=== PATIENT | male | born 1975 | race Two or more races ===

== ENCOUNTER 2019-11-26 09:59 | Inpatient (IN) | payer MEDICARE, MEDICAID ==
[~2019-11-26] VITALS: Ht 180.3 cm; Wt 74.3 kg
[2019-11-26 10:45] LABS: Basophils # (auto) 0.1 10 ^3/uL (0-0.2); Basophils % (auto) 0.9 % (0.0-2.0); Eosinophils # (auto) 0.2 10 ^3/uL (0-0.8); Eosinophils % (auto) 1.5 % (0.0-7.0); Hematocrit 33.2 % (41.0-53.0); Lymphocytes # (auto) 1.2 10 ^3/uL (0.4-5.4); Lymphocytes % (auto) 10.2 % (10.0-50.0); Mean Corpuscular Hemoglobin 29.1 pg (28.0-32.0); Mean Corpuscular Hgb Conc. 33.1 g/dL (32.0-36.0); Mean Corpuscular Volume 87.9 fL (80.0-100.0); Monocytes # (auto) 0.9 10 ^3/uL (0-1.3); Monocytes % (auto) 7.4 % (0.0-12.0); Neutrophils # (auto) 9.4 10 ^3/uL (1.6-8.6); Nucleated Red Blood Cells % 0.1 %; Platelet Count (auto) 380 10^3/uL (140-450); Red Blood Cells 3.78 10^6/uL (4.5-5.90); Red Cell Distribution Width 14.7 % (11.8-14.3); White Blood Cell 11.7 10^3/uL (4.4-10.8)
[2019-11-26] MEDS ORDERED: PIPERACILLIN-TAZOB 3.375GM 100 ML IV ONE (10:45)
[2019-11-26 11:04] LABS: Albumin 3.4 g/dL (3.4-5.0); Calcium 8.2 mg/dL (8.5-10.1); Magnesium 2.6 mg/dL (1.6-2.6); Potassium 3.2 mmol/L (3.5-5.1)
[2019-11-26 11:16] LABS: INR 1.07 (0.9-1.15); Partial Thromboplastin Time 30.4 sec (23.0-31.2)
[2019-11-26 11:27] LABS: BUN/Creatinine Ratio 4.9; Bilirubin, Total 0.5 mg/dL (0.2-1.0); Total Protein 8.9 g/dL (6.4-8.2)
[2019-11-26] MEDS ORDERED: MORPHINE SULF INJ 2 MG/ML SYRINGE 1ML IV PRN ×2 (12:15→13:15)
[2019-11-26] MEDS ORDERED: NITROGLYCERIN 0.4 MG SL TAB SL PRN ×2 (12:15→13:15)
[2019-11-26] MEDS ORDERED: ACETAMINOPHEN 325 MG TAB PO PRN (13:15)
[2019-11-26] MEDS ORDERED: ONDANSETRON HCL 4 MG/2 ML VIAL IV PRN (13:15)
[2019-11-26] MEDS ORDERED: ALUM & MAG HYDROX-SIMETH LIQ(MAALOX) 30 ML PO PRN (13:15)
[2019-11-26] MEDS ORDERED: VANCOMYCIN PER PHARMACY 0 MG IV SCH (13:15)
[2019-11-26] MEDS ORDERED: DOCUSATE SOD 100 MG CAP PO PRN (13:15)
[2019-11-26] MEDS ORDERED: SULF-92 PO (13:31)
[2019-11-26] MEDS ORDERED: CEPH500C PO (13:31)
[2019-11-26] MEDS ORDERED: FERR1TAB17 PO (13:31)
[2019-11-26] MEDS ORDERED: CALC-509 PO (13:31)
[2019-11-26] MEDS ORDERED: CARV25TA55 PO (13:31)
[2019-11-26] MEDS ORDERED: ROSU10TA16 PO (13:31)
[2019-11-26] MEDS ORDERED: CLON0.2T PO (13:31)
[2019-11-26] MEDS ORDERED: MIN25T PO (13:31)
[2019-11-26] MEDS ORDERED: POTASSIUM CHL 20 Meq TABLET PO ONE (14:00)
[2019-11-26] MEDS ORDERED: POTASSIUM CHL 20MEQ/100ML 100 ML IV ONE (14:00)
[2019-11-26] MEDS ORDERED: VANCOMYCIN 1GM/250ML 250 ML IV ONE (14:30)
[2019-11-26] MEDS: FERROUS SULFATE 325 MG TAB PO SCH (14:50)
[2019-11-26] MEDS: CALCIUM CARB 500 MG CHEW TAB PO SCH (14:50)
[2019-11-26 17:48] VITALS: BP 142/78
--- NOTE | 2019-11-26 19:20 | NUR ---
Opening Shift Note Assumed care of patient, awake and alert. No S/S of distress/SOB or pain. Instructed on POC and to call for assistance PRN, will continue to monitor for changes Q1hr and PRN.
[2019-11-26 22:00] VITALS: BP 133/79
[2019-11-26] MEDS: PIPERACILLIN-TAZOB 2.25GM 50 ML IV SCH (22:56)
[2019-11-26] MEDS: ATORVASTATIN 20 MG TAB PO SCH (22:58)
[2019-11-26] MEDS: CARVEDILOL 12.5 MG TAB PO SCH (22:58)
[2019-11-27] MEDS: MORPHINE SULF INJ 2 MG/ML SYRINGE 1ML IV PRN ×2 (00:25→04:47)
[2019-11-27 05:00] VITALS: BP 139/86
--- NOTE | 2019-11-27 07:12 | NUR ---
End of Shift Note Endorsed care to dayshift RN. At this time patient has no s/s of distress or SOB.
[2019-11-27] MEDS: CALCIUM CARB 500 MG CHEW TAB PO SCH ×3 (07:42→17:56)
[2019-11-27] MEDS: FERROUS SULFATE 325 MG TAB PO SCH ×3 (07:42→17:55)
[2019-11-27 09:19] VITALS: BP 154/79
[2019-11-27] MEDS: CHOLECALCIFEROL (VITD3) 2,000 UNIT CAP PO SCH (10:00)
[2019-11-27] MEDS: PIPERACILLIN-TAZOB 2.25GM 50 ML IV SCH ×2 (10:14→21:38)
[2019-11-27] MEDS: CARVEDILOL 12.5 MG TAB PO SCH ×2 (10:20→21:23)
[2019-11-27] MEDS ORDERED: FAMOTIDINE 20 MG TAB PO ONE (11:15)
[2019-11-27] MEDS ORDERED: ASPirin 81 mg TAB PO ONE (11:15)
[2019-11-27 13:00] VITALS: BP 152/86
[2019-11-27] MEDS ORDERED: ENOXAPARIN SOD 80 MG/0.8ML SYRINGE SC ONE (13:00)
[2019-11-27 17:00] VITALS: BP 140/86
[2019-11-27] MEDS: HYDROcodone-ACET 5/325MG TAB PO PRN (17:59)
--- NOTE | 2019-11-27 19:30 | NUR ---
Opening Shift Note Assumed care of patient, awake and alert. No S/S of distress/SOB or pain. Instructed on POC and to call for assist PRN; call light within pt's reach. Bed low and HOB in semi-Bailey's position. RN will continue to monitor for changes Q1hr and PRN. Dorsal R foot has assymetrical 2+ eythematous area noted previously during this admit; marked with marker. Pt's foot "spasms" made marking difficult.
[2019-11-27] MEDS: MINOXIDIL 2.5 MG TAB PO PRN (21:20)
[2019-11-27] MEDS: ATORVASTATIN 20 MG TAB PO SCH (21:23)
[2019-11-27 21:32] VITALS: BP 185/98
[2019-11-27] MEDS: LORazepam 0.5 MG TAB PO PRN (21:39)
--- NOTE | 2019-11-27 23:05 | NUR ---
Keith Damico RN, CMA OR LPN, hospitalist, called 2/2 pt's BP of 179/111 after routine Coreg 12.5mg po, Ativan 0.5mg po and Loniten 2.5mg po given.
--- NOTE | 2019-11-27 23:10 | NUR ---
Keith Damico, hospitalist returned page; new order for hydralazine 50mg i po q4h prn SBP>160 received and entered into EMR.
[2019-11-27] MEDS: hydrALAZINE HCL 25 MG TAB PO PRN (23:59)
--- NOTE | 2019-11-28 01:10 | NUR ---
Marilyn Damico, RN, [place], hospitalist re pt's bp of 185/102. Pt also having leg and foot spasms during taking of bp and "all the time" per pt report. Pt takes clonidine 0.2 tid at home; none ordered here and carvedilol 25mg bid at home with 12.5mg q 12h here. Minoxidil same prn dosage here as at home.
--- NOTE | 2019-11-28 01:35 | NUR ---
Keith Damico, hospitalist, returned page. This RN reported pt's current bp of 185/102 with HR in 80s to 90s. RN also reported home med dosages compared to current in hospital. New orders received to increase carvedilol to 25mg bid and give amlodipine 10mg po daily with first dose now. Order read back done.
--- NOTE | 2019-11-28 01:42 | NUR ---
Pt informed this nurse that he would be leaving the hospital to go see his Dr. at 9 a.m. RN interviewing pt to determine rationale for this and what plans had been made with [facility] doctor and his doctors here. Pt voiced confusion as to not completing care of his foot with [facility] who giving him injections of "I think steroids" into his foot. Informed him that it would take longer than 0900 for him to get discharged by [facility] to go to a [facility]. Then RN informed him he had a right to help make decisions re. his care, but he would have to go Against Medical Advice to get out and to [facility] by 0900. Warning also given that hospitals are not required to accept pt's back after they go AMA. RN encouraging pt to wait to speak with MDs taking care of him here. Later pt stating he had been sleeping and awakened and was confused and is not planning departure from hospital.
[2019-11-28] MEDS: amLODIPine BESYLATE 5 MG TAB PO SCH ×2 (02:20→10:18)
--- NOTE | 2019-11-28 03:35 | NUR ---
BP 163/110. Minoxidil 2.5mg i po and Ativan 0.5mg i po given as bp 163/110.
[2019-11-28] MEDS: MINOXIDIL 2.5 MG TAB PO PRN ×2 (03:52→23:05)
[2019-11-28] MEDS: LORazepam 0.5 MG TAB PO PRN ×2 (03:57→23:06)
[2019-11-28 05:30] VITALS: BP 160/99
--- NOTE | 2019-11-28 05:38 | NUR ---
Pt has not been able to sleep long this night. Currently sound asleep with unlabored respirations. Bailey's position. BP 182/101; therefore hydralazine 50mg po given as ordered prn. Pt lowering HOB to resume sleep.
--- NOTE | 2019-11-28 05:40 | NUR ---
Awakened pt from sound sleep. Cont as all other times of getting bp, Jerks legs suddenly and moves legs into different positions sometimes rubbing them with his hands. He states it is spasms and he has to rub them. BP 182/101; Hydralazine 50mg given as ordered. Pt now choosing to put HOB almost flat to resume sleep.
[2019-11-28] MEDS: hydrALAZINE HCL 25 MG TAB PO PRN ×2 (05:55→21:21)
--- NOTE | 2019-11-28 07:30 | NUR ---
Opening Shift Note RECEIVED REPORT FROM NOC RN. Assumed care of patient, awake and alert. No S/S of distress/SOB or pain. BED IN LOWEST, LOCKED POSITION WITH SIDERAILS UP x2 AND CALL LIGHT WITHIN REACH. Instructed on POC and to call for assist PRN, will continue to monitor for changes Q1hr and PRN.
[2019-11-28] MEDS: CALCIUM CARB 500 MG CHEW TAB PO SCH ×3 (08:54→17:37)
[2019-11-28] MEDS: FERROUS SULFATE 325 MG TAB PO SCH ×3 (08:54→17:37)
[2019-11-28 09:11] VITALS: BP 166/89
[2019-11-28] MEDS: CHOLECALCIFEROL (VITD3) 2,000 UNIT CAP PO SCH (10:00)
[2019-11-28] MEDS: ASPirin 81 mg TAB PO SCH (10:17)
[2019-11-28] MEDS: PIPERACILLIN-TAZOB 2.25GM 50 ML IV SCH ×2 (10:17→21:20)
[2019-11-28] MEDS: CARVEDILOL 12.5 MG TAB PO SCH ×2 (10:18→21:20)
[2019-11-28] MEDS: ENOXAPARIN SOD 80 MG/0.8ML SYRINGE SC SCH (10:18)
[2019-11-28] MEDS: FAMOTIDINE 20 MG TAB PO SCH (10:18)
[2019-11-28] MEDS: NITROGLYCERIN 0.2MG/HR TOPICAL PATCH TD SCH (10:19)
[2019-11-28] MEDS ORDERED: POTASSIUM CHLORIDE 8 MEQ TAB PO ONE (12:00)
[2019-11-28 12:49] VITALS: BP 160/90
--- NOTE | 2019-11-28 15:32 | NUR ---
WOUND CARE NOTE: Wound care in to see patient per wound care request regarding Rt foot/ toe wounds that are noted present on admission. Bedside nurse took photograph of patient's wounds upon admission for reference. Patient is 44 years old male with admitting diagnosis of Non healing ulcer in patient with ESRD. Patient is resting in bed in Rm. 273A. He's awake, alert and fully oriented. He's in no stated pain at this time however he reports that his Rt foot is tender to touch. Patient is ambulatory and self turning and repositioning. His Jeremy score is 20. Noted patient's R foot is erythremic with black/ dark purple discoloration in between R 3rd, Rt 4th and Rt 5th toe. Among patient's right foot toes, purple discoloration is more prominent in Rt fourth toe. Patient reported that he has had the R foot problem "going on for a month now." He continued further that it started when he's painting a car on a trailer and accidentally stepped onto an iron bar. He added that he did not noticed any wound on that incident but he felt the pain to his plantar foot and toes. Patient denies Diabetes. Cleansed patient's Rt foot toes and applied Betadine moist gauze in between Rt 3rd, Rt 4th and Rt 5th toes. Patient tolerated well. Wound care education provided, patient verbalized understanding. Patient has pending podiatry and cardiology consult. RECOMMENDATION: Nursing to continue with Daily/PRN dressing change to Rt foot toes per MD order, continue monitoring by wound care while patient is hospitalized. Addendum: 11/28/19 at 1710 by Mari Lowe RN Amended: Links added.
[2019-11-28] MEDS ORDERED: VANCOMYCIN 500 MG in D5W 5% 100 ML IV ONE (16:00)
[2019-11-28 16:22] VITALS: BP 155/90
[2019-11-28 18:48] LABS: BUN/Creatinine Ratio 6.9; Calcium 7.2 mg/dL (8.5-10.1); Potassium 5.3 mmol/L (3.5-5.1)
--- NOTE | 2019-11-28 18:50 | NUR ---
CRITICAL LAB RESULT - CREATININE 11.20
--- NOTE | 2019-11-28 18:57 | NUR ---
PAGED DR. SANDOVAL THROUGH HIS EXCHANGE FOR CRITICAL CREATININE RESULT.
--- NOTE | 2019-11-28 20:32 | NUR ---
PAGED DR. SANDOVAL AT THIS TIME THROUGH HIS EXCHANGE FOR CRITICAL CREATININE RESULT.
[2019-11-28] MEDS: ATORVASTATIN 20 MG TAB PO SCH (21:21)
[2019-11-28] MEDS: HYDROcodone-ACET 5/325MG TAB PO PRN (21:22)
[2019-11-28 21:55] VITALS: BP 175/100
[2019-11-29 01:27] VITALS: BP 161/102
[2019-11-29] MEDS: hydrALAZINE HCL 25 MG TAB PO PRN (01:34)
--- NOTE | 2019-11-29 03:05 | NUR ---
hospitalist hospitalist called re:change in mental status . Waiting for call back. Continue care.
--- NOTE | 2019-11-29 03:16 | NUR ---
hospitalist call [facility] returned call, updated on patient status and reason for call, no new orders received. Continue care.
[2019-11-29] MEDS: MORPHINE SULF INJ 2 MG/ML SYRINGE 1ML IV PRN ×2 (03:28→12:43)
[2019-11-29 05:40] VITALS: BP 162/67
[2019-11-29 06:22] LABS: Basophils # (auto) 0.1 10 ^3/uL (0-0.2); Basophils % (auto) 0.8 % (0.0-2.0); Eosinophils # (auto) 0.4 10 ^3/uL (0-0.8); Eosinophils % (auto) 3.2 % (0.0-7.0); Hematocrit 29.2 % (41.0-53.0); Hemoglobin 9.6 g/dL (13.5-17.5); Lymphocytes # (auto) 1.4 10 ^3/uL (0.4-5.4); Lymphocytes % (auto) 11.6 % (10.0-50.0); Mean Corpuscular Volume 88.1 fL (80.0-100.0); Monocytes # (auto) 0.8 10 ^3/uL (0-1.3); Monocytes % (auto) 6.6 % (0.0-12.0); Neutrophils # (auto) 9.7 10 ^3/uL (1.6-8.6); Neutrophils % (auto) 77.8 % (37.0-80.0); Platelet Count (auto) 350 10^3/uL (140-450); Red Blood Cells 3.31 10^6/uL (4.5-5.90); Red Cell Distribution Width 14.7 % (11.8-14.3); White Blood Cell 12.5 10^3/uL (4.4-10.8)
[2019-11-29] MEDS: MINOXIDIL 2.5 MG TAB PO PRN ×2 (06:25→12:29)
[2019-11-29 06:44] LABS: Potassium 5.4 mmol/L (3.5-5.1)
--- NOTE | 2019-11-29 06:52 | NUR ---
END OF SHIFT NOTE WILL ENDORSE PT CARE TO DAY SHIFT RN. PT A0X3, NO S/S OF DISTRESS OR SOB
[2019-11-29] MEDS ORDERED: SODIUM CHL 0.9% 1000 ML BAG XX ONE (07:00)
[2019-11-29 07:15] LABS: BUN/Creatinine Ratio 6.9; Calcium 7.4 mg/dL (8.5-10.1)
--- NOTE | 2019-11-29 07:30 | NUR ---
Opening Shift Note Assumed care of patient, awake and alert. Respirations are even and unlabored. No S/S of distress/SOB or pain. Bed is low, locked with 2x side rails up. Call light is within reach. Instructed on POC and to call for assist PRN, will continue to monitor for changes Q1hr and PRN.
[2019-11-29] MEDS: FERROUS SULFATE 325 MG TAB PO SCH ×3 (08:00→17:39)
[2019-11-29] MEDS: CALCIUM CARB 500 MG CHEW TAB PO SCH ×3 (08:00→17:40)
[2019-11-29 09:00] VITALS: BP 161/92
--- NOTE | 2019-11-29 09:12 | NUR ---
Spoke to Dr. Miner Discussed POC with . New orders received. Read back to verify. (see orders). Will implement.
[2019-11-29] MEDS: FAMOTIDINE 20 MG TAB PO SCH (10:00)
--- NOTE | 2019-11-29 10:05 | NUR ---
Hemodialysis Dialysis nurse informed this RN that access site is infiltrated and HD will be attempted again tomorrow. Per dialysis nurse, MD Su is aware.
[2019-11-29] MEDS: ENOXAPARIN SOD 80 MG/0.8ML SYRINGE SC SCH (10:11)
[2019-11-29] MEDS: CHOLECALCIFEROL (VITD3) 1,000UNIT=25mCg TAB PO SCH (10:12)
[2019-11-29] MEDS: ASPirin 81 mg TAB PO SCH (10:12)
[2019-11-29] MEDS: amLODIPine BESYLATE 5 MG TAB PO SCH (10:13)
[2019-11-29] MEDS: CARVEDILOL 12.5 MG TAB PO SCH ×2 (10:13→22:00)
[2019-11-29] MEDS: NITROGLYCERIN 0.2MG/HR TOPICAL PATCH TD SCH (10:14)
--- NOTE | 2019-11-29 10:27 | NUR ---
Nutrition Assessment Consider adding Nephrovite and Vitamin C 500 mg BID Consider adding 1 pkt prostat BID Est energy needs 8838-2131 kcal (25-30 kcal/kg BW 74.2kg) Est protein needs 89-106g (1.2-1.4g/kg BW 74.2kg r/t ESRD on HD) Will reassess prn Addendum: 11/29/19 at [address] Amended: Links added.
[2019-11-29] MEDS ORDERED: SODIUM ZIRCONIUM CYCL 10 GM PAK PO ONE (11:45)
[2019-11-29 12:44] VITALS: BP 162/89
--- NOTE | 2019-11-29 12:55 | NUR ---
Lokelma RE: Dr. Zambrano's communication order regarding potassium:5.4 MD Su ordered a one time dose of Lokelma 20gm for patient's current potassium level. One time dose given at 1219.
[2019-11-29] MEDS: PIPERACILLIN-TAZOB 2.25GM 50 ML IV SCH ×2 (14:12→23:06)
--- NOTE | 2019-11-29 15:50 | NUR ---
Dr. Miner at bedside Discussing POC with patient. No new orders received.
[2019-11-29 16:59] VITALS: BP 149/91
[2019-11-29] MEDS ORDERED: EPOETIN ALFA 10,000 UNIT/1 ML VIAL SC ONE (21:00)
[2019-11-29 22:00] VITALS: BP 109/50
[2019-11-29] MEDS: LORazepam 0.5 MG TAB PO PRN (23:11)
[2019-11-29] MEDS: ATORVASTATIN 20 MG TAB PO SCH (23:11)
[2019-11-30 05:00] VITALS: BP 160/88
[2019-11-30] MEDS: PIPERACILLIN-TAZOB 2.25GM 50 ML IV SCH ×3 (05:09→22:20)
[2019-11-30 06:10] LABS: Basophils # (auto) 0.1 10 ^3/uL (0-0.2); Basophils % (auto) 0.7 % (0.0-2.0); Eosinophils # (auto) 0.2 10 ^3/uL (0-0.8); Eosinophils % (auto) 1.6 % (0.0-7.0); Hematocrit 26.9 % (41.0-53.0); Hemoglobin 8.9 g/dL (13.5-17.5); Lymphocytes # (auto) 1.1 10 ^3/uL (0.4-5.4); Mean Corpuscular Volume 87.7 fL (80.0-100.0); Monocytes # (auto) 0.9 10 ^3/uL (0-1.3); Monocytes % (auto) 7.3 % (0.0-12.0); Neutrophils # (auto) 10.1 10 ^3/uL (1.6-8.6); Neutrophils % (auto) 81.4 % (37.0-80.0); Platelet Count (auto) 349 10^3/uL (140-450); Red Blood Cells 3.06 10^6/uL (4.5-5.90); Red Cell Distribution Width 15.1 % (11.8-14.3); White Blood Cell 12.5 10^3/uL (4.4-10.8)
[2019-11-30 06:24] LABS: INR 1.15 (0.9-1.15); Partial Thromboplastin Time 35.3 sec (23.0-31.2)
[2019-11-30 06:45] LABS: Calcium 7.5 mg/dL (8.5-10.1)
--- NOTE | 2019-11-30 06:51 | NUR ---
END OF SHIFT NOTE WILL ENDORSE PT CARE TO DAY SHIFT RN. PT A0X4, NO S/S OF DISTRESS OR SOB
[2019-11-30 07:01] LABS: BUN/Creatinine Ratio 6.1
--- NOTE | 2019-11-30 07:10 | NUR ---
Opening Shift Note Assumed care of patient, who is alert and oriented x4. Respirations are even and unlabored. No S/S of distress/SOB or pain. Bed is low, locked with 2x side rails up. Call light is within reach. Instructed on POC and to call for assist PRN, will continue to monitor for changes Q1hr and PRN.
[2019-11-30] MEDS ORDERED: IODIXANOL 320MG/ML 100ML BTL IV ONE ×2 (07:22→08:02)
--- NOTE | 2019-11-30 07:23 | NUR ---
Patient off unit Patient taken to cardiac cath rn by this RN and li Sykes. Checklist completed by this RN. Consents signed and filed in chart. VSS. No distress noted upon departure.
[2019-11-30] MEDS: FERROUS SULFATE 325 MG TAB PO SCH ×3 (08:00→17:58)
[2019-11-30] MEDS: CALCIUM CARB 500 MG CHEW TAB PO SCH ×3 (08:00→17:59)
[2019-11-30] MEDS ORDERED: MIDAZOLAM HCL 1MG/1ML-2 ML VIAL ONE (08:02)
[2019-11-30] MEDS ORDERED: fentaNYL CITRATE 100 MCG/2 ML VL ONE (08:02)
[2019-11-30] MEDS ORDERED: SODIUM CHL 0.9% 50 ML ONE (08:03)
[2019-11-30] MEDS ORDERED: ANGIOMAX 250 MG VIAL IV ONE (08:03)
[2019-11-30] MEDS ORDERED: diphenhdrAMINE HCL 50 MG/1 ML VL ONE (08:37)
[2019-11-30 09:00] VITALS: BP 159/87
[2019-11-30] MEDS ORDERED: LABETALOL HCL 5 MG/ML ML 20ML VIAL IV ONE (09:27)
--- NOTE | 2019-11-30 09:42 | NUR ---
Patient brought to recovery via bed, report received from ASMITA Taylor and ASMITA Gale. Patient is AO x 4, NAD noted and denies pain at this time. Left groin site is benign, safeguard is in place, no s/s of bleeding or hematoma formation. Positive circulation, movement and sensation noted to BLE. Patient verbalized understanding to post-procedure care and flat time.
--- NOTE | 2019-11-30 09:57 | NUR ---
Patient is resting in bed with eyes closed, breaths are even and unlabored. Left groin site remains unchanged.
[2019-11-30] MEDS: ENOXAPARIN SOD 80 MG/0.8ML SYRINGE SC SCH (10:00)
--- NOTE | 2019-11-30 10:10 | NUR ---
Report given to primary RN, Marie.
--- NOTE | 2019-11-30 10:28 | NUR ---
Patient taken to telemetry unit via bed, package collector in place. NAD noted upon departure. Primary RNMarie present at bedside to witness left groin site benign, no s/s of bleeding or hematoma. Bed set in lowest locked position with side rails up x 2, call light is within reach and bed alarm set on for safety. Care endorsed to ASMITA Salazar.
--- NOTE | 2019-11-30 10:30 | NUR ---
Back on unit S/p peripheral angio with Dr. Zambrano. Safeguard noted to (L) groin. No bleeding or hematoma noted. BP: 155/90 HR:94. Patient aware of flat time. Verbalized understanding
[2019-11-30] MEDS: ASPirin 81 mg TAB PO SCH (10:51)
[2019-11-30] MEDS: CARVEDILOL 12.5 MG TAB PO SCH ×2 (10:51→22:20)
[2019-11-30] MEDS: FAMOTIDINE 20 MG TAB PO SCH (10:52)
[2019-11-30] MEDS: CHOLECALCIFEROL (VITD3) 1,000UNIT=25mCg TAB PO SCH (10:52)
[2019-11-30] MEDS: amLODIPine BESYLATE 5 MG TAB PO SCH (10:52)
[2019-11-30] MEDS: NITROGLYCERIN 0.2MG/HR TOPICAL PATCH TD SCH (10:53)
--- NOTE | 2019-11-30 11:34 | NUR ---
Pt is an alert and oriented male that is pleasant, quiet spoken but able to communicate and make needs known. Pt resides with his mother in [place]. Pt functions independently and uses no dme. Pt receives dialysis at [facility] in [place] and has been there for 7 years. Pt states he is transported by a Van ride service. Pt has no HH or IHSS and states he does not need it. Pt states he has transportation home and has no social service needs or concerns at this time. Addendum: 11/30/19 at 1139 by SHERRY LEUNG Amended: Links added.
--- NOTE | 2019-11-30 12:05 | NUR ---
Safeguard/Flat time Deflated 40 ml of air from safeguard that was placed to (L) groin. Site is soft with no bleeding/hematoma. Removed safeguard and noted incision to left groin. This nurse placed sterile gauze with tegaderm to (L) groin. BLE pulses palpable. Raised HOB so patient can eat lunch. Bed is low, locked with 2x side rails up. Call light is within reach. Will continue to monitor Q1hr and PRN.
--- NOTE | 2019-11-30 12:15 | NUR ---
Dr. Miner at bedside Assessing patient at this time. Orders received for (R) foot MRI w/o contrast to r/o osteomyelitis to (R) 3rd, 4th and 5th toes. Orders read back to verify. Orders implemented.
[2019-11-30 12:59] VITALS: BP 154/85
--- NOTE | 2019-11-30 14:15 | NUR ---
Dialysis nurse at bedside Stopped Zosyn scheduled for 1400. Will re-start once dialysis is complete.
--- NOTE | 2019-11-30 15:34 | NUR ---
Spoke to Dr. Isidra Miner aware that MRI of (R) foot could not be done today due to patient receiving dialysis treatment. MD aware that MRI of (R) foot will be done tomorrow morning. Per MD, keep patient NPO after midnight. Patient may have procedure tomorrow pending MRI results. No further orders given. Will implement and carry out.
[2019-11-30 16:48] VITALS: BP 165/84
[2019-11-30 17:30] VITALS: BP 141/73
[2019-11-30] MEDS ORDERED: VANCOMYCIN 750mg/250ml 250 ML IV ONE (18:30)
--- NOTE | 2019-11-30 18:39 | NUR ---
NPO Patient aware NPO status after midnight. Patient is aware that he has an MRI of (R) foot tomorrow morning and pending those results MD may schedule procedure sometime tomorrow. Patient verbalized understanding. Will relay information to oncoming nurse.
--- NOTE | 2019-11-30 19:35 | NUR ---
OPENING SHIFT NOTE Assumed care of patient who is A&O x4. Currently on RA with no s/s of distress noted. Reports 6/10 pain to right foot. Pain management options discussed. PIV in left wrist is intact and patent. Flushed with 10ml NS. Dressing to right foot is CDI. Patient is s/p peripheral angiogram. Dressing to access site at left groin is CDI. No s/s of hematoma or bleeding noted. POC discussed and patient instructed on NPO status after 0000. Verbalizes understanding. Bed is in low locked position with side rails up x2. Call light is within reach and patient encouraged to call for assistance when needed.
[2019-11-30] MEDS: HYDROcodone-ACET 5/325MG TAB PO PRN (20:34)
[2019-11-30 22:00] VITALS: BP 116/74
[2019-11-30] MEDS: ATORVASTATIN 20 MG TAB PO SCH (22:20)
--- NOTE | 2019-11-30 23:00 | NUR ---
DRESSING CHANGE Dressing to right foot dislodged. Wound cleansed with wound cleanser and patted dry with sterile gauze. Betadine soaked gauze placed between the toes and wrapped in Kerlix. Secured with tape. Patient tolerated well.
[2019-12-01] VITALS (9 sets, daily range): BP systolic 124–152; BP diastolic 71–88
--- NOTE | 2019-12-01 05:27 | NUR ---
Dr. Zambrano at bedside discussing POC with patient.
[2019-12-01] MEDS: PIPERACILLIN-TAZOB 2.25GM 50 ML IV SCH ×3 (05:28→22:14)
[2019-12-01 06:28] LABS: Basophils # (auto) 0.1 10 ^3/uL (0-0.2); Basophils % (auto) 0.8 % (0.0-2.0); Eosinophils # (auto) 0.1 10 ^3/uL (0-0.8); Eosinophils % (auto) 1.4 % (0.0-7.0); Hematocrit 26.3 % (41.0-53.0); Hemoglobin 8.7 g/dL (13.5-17.5); Lymphocytes # (auto) 1.3 10 ^3/uL (0.4-5.4); Lymphocytes % (auto) 12.3 % (10.0-50.0); Mean Corpuscular Hemoglobin 29.2 pg (28.0-32.0); Mean Corpuscular Hgb Conc. 33.2 g/dL (32.0-36.0); Mean Corpuscular Volume 88.1 fL (80.0-100.0); Monocytes # (auto) 0.9 10 ^3/uL (0-1.3); Monocytes % (auto) 8.2 % (0.0-12.0); Neutrophils % (auto) 77.3 % (37.0-80.0); Platelet Count (auto) 354 10^3/uL (140-450); Red Blood Cells 2.98 10^6/uL (4.5-5.90); White Blood Cell 10.4 10^3/uL (4.4-10.8)
[2019-12-01 06:55] LABS: BUN/Creatinine Ratio 5.6; Calcium 7.4 mg/dL (8.5-10.1)
[2019-12-01] MEDS: CALCIUM CARB 500 MG CHEW TAB PO SCH ×3 (07:36→18:34)
[2019-12-01] MEDS: FERROUS SULFATE 325 MG TAB PO SCH ×3 (07:36→18:34)
--- NOTE | 2019-12-01 09:20 | NUR ---
DR. ALMEIDA AT PATIENT'S BEDSIDE GIVING INFORMED CONSENT FOR SURGICAL PROCEDURE TODAY. PATIENT SIGNED CONSENTS AND WAS BROUGHT DOWN TO PRE-OP.
[2019-12-01] MEDS: CHOLECALCIFEROL (VITD3) 1,000UNIT=25mCg TAB PO SCH ×2 (10:00→14:53)
[2019-12-01] MEDS ORDERED: ceFAZolin 1GM VL ONE (10:02)
[2019-12-01] MEDS ORDERED: fentaNYL CITRATE 100 MCG/2 ML VL ONE (10:51)
[2019-12-01] MEDS ORDERED: MEPERIDINE HCL (25 MG/ML) 1ML VIAL ONE (10:52)
[2019-12-01] MEDS ORDERED: MIDAZOLAM HCL 1MG/1ML-2 ML VIAL ONE (10:52)
[2019-12-01] MEDS ORDERED: DexAMETHasone SOD PHOS 10MG/1ML VIAL INJ ONE (11:13)
[2019-12-01] MEDS ORDERED: PROPOFOL 10 MG/ML 20 ML IV ONE (11:22)
[2019-12-01] MEDS ORDERED: ePHEDrine SULFATE 50 MG/ML AMP IV PRN (11:45)
[2019-12-01] MEDS ORDERED: MIDAZOLAM HCL 1MG/1ML-2 ML VIAL IV PRN (11:45)
[2019-12-01] MEDS ORDERED: fentaNYL CITRATE 100 MCG/2 ML VL IV PRN (11:45)
[2019-12-01] MEDS ORDERED: LABETALOL HCL 5 MG/ML 4ML SYRINGE IV PRN (11:45)
[2019-12-01] MEDS ORDERED: ONDANSETRON HCL 4 MG/2 ML VIAL IV PRN (11:45)
--- NOTE | 2019-12-01 12:47 | NUR ---
RECEIVED REPORT FROM DRU IN RECOVERY. PATIENT BACK TO ROOM 273A. VS 127/71, HR85, 97.7, 91% ON 2L NC, RR, 16. PATIENT IS ALERT/ORIENTED AND HAS NO COMPLAINTS OF PAIN STATING HIS FOOT "STILL FEELS NUMB". HE IS ABLE TO MOVE TOES AND FEEL SENSATION AT CALF LEVEL. BED LOW, LIGHT IN REACH.
[2019-12-01] MEDS: ENOXAPARIN SOD 80 MG/0.8ML SYRINGE SC SCH (14:33)
[2019-12-01] MEDS: ASPirin 81 mg TAB PO SCH (14:37)
[2019-12-01] MEDS: amLODIPine BESYLATE 5 MG TAB PO SCH (14:38)
[2019-12-01] MEDS: CARVEDILOL 12.5 MG TAB PO SCH ×2 (14:38→22:15)
[2019-12-01] MEDS: NITROGLYCERIN 0.2MG/HR TOPICAL PATCH TD SCH (14:53)
[2019-12-01] MEDS: FAMOTIDINE 20 MG TAB PO SCH (18:34)
--- NOTE | 2019-12-01 19:50 | NUR ---
OPENING SHIFT NOTE Assumed care of patient who is A&O x4. Currently on 2l NC with no s/s of distress noted. Denies pain at this time. PIV in left hand is intact and patent. Flushed with 10ml NS. 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 Miner. Patient is able to wiggle toes and cap refill is brisk. Surgical dressing to right foot is CDI. POC discussed and patient instructed not to bear weight on right foot. Patient verbalizes understanding. Bed is in low locked position with side rails up x2. Call light is within reach and patient encouraged to call for assistance when needed. Will continue to monitor for changes PRN.
[2019-12-01] MEDS: ATORVASTATIN 20 MG TAB PO SCH (22:15)
[2019-12-01] MEDS: HYDROcodone-ACET 5/325MG TAB PO PRN (22:16)
[2019-12-02 05:00] VITALS: BP 132/78
[2019-12-02] MEDS: PIPERACILLIN-TAZOB 2.25GM 50 ML IV SCH ×2 (05:40→14:00)
[2019-12-02] MEDS: MORPHINE SULF INJ 2 MG/ML SYRINGE 1ML IV PRN (05:40)
[2019-12-02 06:11] LABS: Albumin 2.7 g/dL (3.4-5.0); Potassium 4.6 mmol/L (3.5-5.1)
[2019-12-02 06:16] LABS: Bilirubin, Total 0.5 mg/dL (0.2-1.0); Total Protein 7.5 g/dL (6.4-8.2)
--- NOTE | 2019-12-02 06:25 | NUR ---
CRITICAL LAB Received call from lab reporting critical Creatinine level of 12.6. Dr. Su is following for Nephro and is aware that creatinine level has been critical since admission. Patient is ESRD and scheduled for dialysis today.
[2019-12-02 06:39] LABS: % Iron Saturation 24.9 % (20-55)
[2019-12-02 06:57] LABS: Basophils # (auto) 0 10 ^3/uL (0-0.2); Basophils % (auto) 0.2 % (0.0-2.0); Eosinophils # (auto) 0 10 ^3/uL (0-0.8); Hematocrit 26.6 % (41.0-53.0); Hemoglobin 8.8 g/dL (13.5-17.5); Lymphocytes # (auto) 0.7 10 ^3/uL (0.4-5.4); Lymphocytes % (auto) 6.5 % (10.0-50.0); Mean Corpuscular Hemoglobin 28.9 pg (28.0-32.0); Mean Corpuscular Hgb Conc. 32.9 g/dL (32.0-36.0); Mean Corpuscular Volume 87.9 fL (80.0-100.0); Monocytes # (auto) 0.5 10 ^3/uL (0-1.3); Monocytes % (auto) 4.3 % (0.0-12.0); Neutrophils # (auto) 10.2 10 ^3/uL (1.6-8.6); Nucleated Red Blood Cells % 0.1 %; Platelet Count (auto) 388 10^3/uL (140-450); Red Blood Cells 3.03 10^6/uL (4.5-5.90); White Blood Cell 11.5 10^3/uL (4.4-10.8)
[2019-12-02] MEDS ORDERED: SODIUM CHL 0.9% 1000 ML BAG XX ONE (07:00)
--- NOTE | 2019-12-02 07:40 | NUR ---
OPENING NOTE Assumed care of patient from NOC RN. Patient is AOX4 no s/s of distress noted. Bed is in lowest locked position, side rails up x2 and call light with in reach. Updated patient on plan of care and patient verbalized understanding. Will continue to monitor q1hr and PRN.
[2019-12-02] MEDS: ASPirin 81 mg TAB PO SCH (08:56)
[2019-12-02] MEDS: ENOXAPARIN SOD 80 MG/0.8ML SYRINGE SC SCH (08:57)
[2019-12-02] MEDS: CALCIUM CARB 500 MG CHEW TAB PO SCH ×3 (08:57→18:00)
[2019-12-02] MEDS: FERROUS SULFATE 325 MG TAB PO SCH ×3 (08:57→18:00)
[2019-12-02 09:00] VITALS: BP 120/69
--- NOTE | 2019-12-02 10:00 | NUR ---
spoke with [facility] dialysis nurse Spoke with ASMITA Reyes. Patient will be seen approximately at 1500.
--- NOTE | 2019-12-02 10:20 | NUR ---
Physician rounding Dr. Miner at bedside. archives specialist Marbin present at rounds. MD updated patient on plan of care. Per MD patient can be D/C today after dialysis and follow up outpatient. Per MD patient is to keep surgical dressing intact and patient can be D/C with 300mg of clindamycin PO TID #30 for 10 days. Will notify attending MD.
[2019-12-02] MEDS: NITROGLYCERIN 0.2MG/HR TOPICAL PATCH TD SCH (10:51)
[2019-12-02] MEDS: CARVEDILOL 12.5 MG TAB PO SCH (10:52)
[2019-12-02] MEDS: amLODIPine BESYLATE 5 MG TAB PO SCH (10:52)
--- NOTE | 2019-12-02 11:00 | NUR ---
Physician rounding Dr. Ham at bedside. updated regarding Dr. Miner clearance. Dr. Ham updated patient, patient verbalized understanding.
--- NOTE | 2019-12-02 11:50 | NUR ---
IV insertion IV access obtained, via clean sterile technique by inserting gauge catheter at right forearm after 2 attempts. IV secured properly. No trauma to site. Patient tolerated well.
[2019-12-02 13:00] VITALS: BP 136/77
[2019-12-02 16:23] VITALS: BP 150/85
[2019-12-02] MEDS: HYDROcodone-ACET 5/325MG TAB PO PRN (16:44)
--- NOTE | 2019-12-02 17:10 | NUR ---
Post Dialysis. Patient had 2L removed during dialysis. Patient is AOx4 and stable no s/s of distress noted.
[2019-12-02] MEDS: FAMOTIDINE 20 MG TAB PO SCH (18:00)
--- NOTE | 2019-12-02 18:30 | NUR ---
Discharge note Discharge instructions given as ordered. Encourage to follow up with PMD as instructed. All questions and concerns addressed. Patient verbalized understanding. IV removed with catheter intact, pressure dressing applied. Telemetry unit returned to ICU. Patient taken to vehicle via wheelchair with all personal belongings, accompanied by staff member. No distress noted at time of departure.
[2019-12-02] MEDS ORDERED: EPOETIN ALFA 10,000 UNIT/1 ML VIAL SC ONE (21:00)
[2019-12-03] MEDS ORDERED: CLOPIDOGREL BISULFATE 75 MG TAB PO SCH (10:00)
== END 2019-12-02 18:30 | disposition home or self-care (01) | DRG 853 ==
LOC: ER 09:59 → TELE 10:00 → TELE-WESTW 17:38
PROVIDERS: ADMIT Hospitalist; ATTEND Family Medicine
PROC: 5A1D70Z Performance of Urinary Filtration, Intermittent, Less than 6 Hours Per Day (ICD-10-PCS; 2019-11-29)
PROC: 047P3ZZ Dilation of Right Anterior Tibial Artery, Percutaneous Approach (ICD-10-PCS; principal; 2019-11-30)
PROC: 047K3ZZ Dilation of Right Femoral Artery, Percutaneous Approach (ICD-10-PCS; 2019-11-30)
PROC: 5A1D70Z Performance of Urinary Filtration, Intermittent, Less than 6 Hours Per Day (ICD-10-PCS; 2019-11-30)
PROC: B41GYZZ Fluoroscopy of Left Lower Extremity Arteries using Other Contrast (ICD-10-PCS; 2019-11-30)
PROC: B41FYZZ Fluoroscopy of Right Lower Extremity Arteries using Other Contrast (ICD-10-PCS; 2019-11-30)
PROC: 0Y6T0Z0 Detachment at Right 3rd Toe, Complete, Open Approach (ICD-10-PCS; 2019-12-01)
PROC: 0Y6X0Z0 Detachment at Right 5th Toe, Complete, Open Approach (ICD-10-PCS; 2019-12-01)
PROC: 0Y6V0Z0 Detachment at Right 4th Toe, Complete, Open Approach (ICD-10-PCS; 2019-12-01)
PROC: 5A1D70Z Performance of Urinary Filtration, Intermittent, Less than 6 Hours Per Day (ICD-10-PCS; 2019-12-02)
DX: A41.9 Sepsis, unspecified organism (principal); N18.6 End stage renal disease; I21.A1 Myocardial infarction type 2; E87.1 Hypo-osmolality and hyponatremia; I12.0 Hypertensive chronic kidney disease with stage 5 chronic kidney disease or end stage renal disease; L03.115 Cellulitis of right lower limb; I73.9 Peripheral vascular disease, unspecified; E78.5 Hyperlipidemia, unspecified; M19.90 Unspecified osteoarthritis, unspecified site; Z20.828 Contact with and (suspected) exposure to other viral communicable diseases; L97.519 Non-pressure chronic ulcer of other part of right foot with unspecified severity; E87.6 Hypokalemia; E87.5 Hyperkalemia; D63.1 Anemia in chronic kidney disease; Z82.49 Family history of ischemic heart disease and other diseases of the circulatory system; Z83.3 Family history of diabetes mellitus; Z91.81 History of falling; Z99.2 Dependence on renal dialysis; K29.60 Other gastritis without bleeding; L03.031 Cellulitis of right toe
CPT/HCPCS: 36415; 37224; 37228; 71045; 73630; 73700; 73718; 75716; 80048; 80053; 80061; 80202; 82550; 82728; 83036; 83540; 83550; 83605; 83735; 83880; 84443; 84484; 85025; 85610; 85730; 86850; 86900; 86901; 87040; 87081; 87426; 90935; 93306; 93926; 96365; 96366; 96367; 99152; A4565; C1769; G0378; J0690; J0885; J1100; J2250; J2543; J2704; J3480; J7060; Q9967

== ENCOUNTER 2020-03-08 05:59 | Day surgery (SDC) | payer MEDICARE, MEDICAID ==
[2020-03-03 14:30] LABS: Basophils # (auto) 0.1 10 ^3/uL (0-0.2); Eosinophils # (auto) 0.1 10 ^3/uL (0-0.8); Eosinophils % (auto) 0.8 % (0.0-7.0)
[2020-03-03 14:32] LABS: Basophils % (auto) 0.4 % (0.0-2.0); Hematocrit 25.7 % (41.0-53.0); Lymphocytes # (auto) 1.4 10 ^3/uL (0.4-5.4); Lymphocytes % (auto) 11.3 % (10.0-50.0); Mean Corpuscular Hemoglobin 26.3 pg (28.0-32.0); Mean Corpuscular Hgb Conc. 31.2 g/dL (32.0-36.0); Mean Corpuscular Volume 84.2 fL (80.0-100.0); Monocytes % (auto) 7.9 % (0.0-12.0); Neutrophils # (auto) 9.9 10 ^3/uL (1.6-8.6); Neutrophils % (auto) 79.6 % (37.0-80.0); Nucleated Red Blood Cells % 0.1 %; Red Blood Cells 3.05 10^6/uL (4.5-5.90); Red Cell Distribution Width 16.6 % (11.8-14.3); White Blood Cell 12.4 10^3/uL (4.4-10.8)
[2020-03-03 14:45] LABS: INR 1.15 (0.9-1.15); Partial Thromboplastin Time 33.6 sec (23.0-31.2)
[2020-03-03 15:08] LABS: Calcium 7.6 mg/dL (8.5-10.1); Potassium 3.6 mmol/L (3.5-5.1)
[2020-03-03 15:11] LABS: BUN/Creatinine Ratio 5.8; Bilirubin, Total 0.4 mg/dL (0.2-1.0); Total Protein 8.8 g/dL (6.4-8.2)
[~2020-03-08] VITALS: Ht 30.5 cm; Wt 0.5 kg
[~2020-03-08 05:59] MED LIST: CALC-509 PO; CARV25TA55 PO; CLON0.2T PO; FERR1TAB17 PO; MIN25T PO; ROSU10TA16 PO; SULF800T8 PO
[2020-03-08] MEDS ORDERED: ceFAZolin 1GM VL ONE (06:53)
[2020-03-08] MEDS ORDERED: ROPIVACAINE 0.5% (5MG/ML) 20ML AMPULE IJ ONE (07:03)
[2020-03-08] MEDS ORDERED: ceFAZolin 1GM/50ML 50 ML IV ONE (07:06)
[2020-03-08] MEDS ORDERED: MEPERIDINE HCL (25 MG/ML) 1ML VIAL ONE (07:28)
[2020-03-08] MEDS ORDERED: MIDAZOLAM HCL 2MG/2ML 2ml VIAL (1mg/ml) ONE (07:28)
[2020-03-08] MEDS ORDERED: fentaNYL CITRATE 100 MCG/2 ML VL ONE (07:28)
[2020-03-08] MEDS ORDERED: PROPOFOL 10 MG/ML 20 ML IV ONE (07:54)
[2020-03-08] MEDS ORDERED: DexAMETHasone SOD PHOS 10MG/1ML VIAL INJ ONE (07:54)
[2020-03-08] MEDS ORDERED: ePHEDrine SULFATE 50 MG/ML AMP IV PRN (08:15)
[2020-03-08] MEDS ORDERED: MIDAZOLAM HCL 2MG/2ML 2ml VIAL (1mg/ml) IV PRN (08:15)
[2020-03-08] MEDS ORDERED: LABETALOL HCL 5 MG/ML 4ML SYRINGE IV PRN (08:15)
[2020-03-08] MEDS ORDERED: ONDANSETRON HCL 4 MG/2 ML VIAL IV PRN (08:15)
[2020-03-08] MEDS ORDERED: fentaNYL CITRATE 100 MCG/2 ML VL IV PRN (08:15)
[2020-03-08] MEDS ORDERED: NEOMYCIN-BACITRACIN-POLYM 15GM TOP OINT TOP ONE (08:17)
[2020-03-08 09:10] VITALS: BP 147/85
== END 2020-03-08 09:45 | disposition home or self-care (01) ==
LOC: SUR 05:59
PROVIDERS: ATTEND Podiatrist Foot & Ankle Surgery
DX: M86.8X7 Other osteomyelitis, ankle and foot (principal); I96 Gangrene, not elsewhere classified; I25.10 Atherosclerotic heart disease of native coronary artery without angina pectoris; E07.9 Disorder of thyroid, unspecified; D64.9 Anemia, unspecified; E89.0 Postprocedural hypothyroidism; I12.0 Hypertensive chronic kidney disease with stage 5 chronic kidney disease or end stage renal disease; N18.6 End stage renal disease; Z20.822 Contact with and (suspected) exposure to COVID-19; Z98.890 Other specified postprocedural states; Z79.899 Other long term (current) drug therapy; Z86.73 Personal history of transient ischemic attack (TIA), and cerebral infarction without residual deficits; Z99.2 Dependence on renal dialysis
CPT/HCPCS: 28805; 36415; 80053; 82962; 85025; 85610; 85730; J0690; J1100; J2175; J2250; J2704; J3010; U0003

== ENCOUNTER 2020-03-13 12:43 | Emergency (ER) | payer MEDICARE, MEDICAID ==
[~2020-03-13] VITALS: Ht 180.3 cm; Wt 72.6 kg
[2020-03-13 15:02] LABS: Eosinophils # (auto) 0.1 10 ^3/uL (0-0.8); Eosinophils % (auto) 0.9 % (0.0-7.0); Neutrophils # (auto) 7.8 10 ^3/uL (1.6-8.6); Platelet Count (auto) 411 10^3/uL (140-450)
[2020-03-13 15:05] LABS: Basophils # (auto) 0 10 ^3/uL (0-0.2); Basophils % (auto) 0.4 % (0.0-2.0); Hematocrit 19.1 % (41.0-53.0); Lymphocytes # (auto) 1.2 10 ^3/uL (0.4-5.4); Lymphocytes % (auto) 11.8 % (10.0-50.0); Mean Corpuscular Hemoglobin 27.2 pg (28.0-32.0); Mean Corpuscular Hgb Conc. 33.5 g/dL (32.0-36.0); Mean Corpuscular Volume 81.3 fL (80.0-100.0); Monocytes # (auto) 0.9 10 ^3/uL (0-1.3); Monocytes % (auto) 9.1 % (0.0-12.0); Neutrophils % (auto) 77.8 % (37.0-80.0); Nucleated Red Blood Cells % 0.1 %; Red Blood Cells 2.35 10^6/uL (4.5-5.90); Red Cell Distribution Width 16.8 % (11.8-14.3); White Blood Cell 10.1 10^3/uL (4.4-10.8)
[2020-03-13 15:23] LABS: Calcium 7.2 mg/dL (8.5-10.1); Potassium 3.9 mmol/L (3.5-5.1)
[2020-03-13 15:28] LABS: BUN/Creatinine Ratio 6.9; Bilirubin, Total 0.3 mg/dL (0.2-1.0); Total Protein 8.3 g/dL (6.4-8.2)
[2020-03-13 16:12] LABS: Hemoglobin 6.4 g/dL (13.5-17.5)
[2020-03-13 20:06] VITALS: BP 120/61
[2020-03-13 20:21] VITALS: BP 121/56
[2020-03-13 23:30] VITALS: BP 126/69
[2020-03-13 23:33] VITALS: BP 126/69
== END 2020-03-13 23:34 | disposition home or self-care (01) ==
LOC: ER 12:43
DX: D64.9 Anemia, unspecified (principal); E11.22 Type 2 diabetes mellitus with diabetic chronic kidney disease; I12.0 Hypertensive chronic kidney disease with stage 5 chronic kidney disease or end stage renal disease; N18.6 End stage renal disease; E83.51 Hypocalcemia; Z99.2 Dependence on renal dialysis; Z79.899 Other long term (current) drug therapy; Z90.89 Acquired absence of other organs; Z98.890 Other specified postprocedural states
CPT/HCPCS: 36415; 36430; 80053; 85025; 86850; 86900; 86901; 86920; 99285; P9016

== ENCOUNTER 2020-03-28 16:23 | Inpatient (IN) | payer MEDICARE, MEDICAID ==
[~2020-03-28] VITALS: Ht 180.3 cm; Wt 72.5 kg
[2020-03-28] MEDS ORDERED: PIPERACILLIN-TAZOB 3.375GM 100 ML IV ONE (16:45)
[2020-03-28 19:27] LABS: Basophils # (auto) 0.1 10 ^3/uL (0-0.2); Eosinophils # (auto) 0.3 10 ^3/uL (0-0.8); Monocytes # (auto) 0.7 10 ^3/uL (0-1.3)
[2020-03-28 19:29] LABS: Basophils % (auto) 1.3 % (0.0-2.0); Eosinophils % (auto) 3.1 % (0.0-7.0); Hematocrit 20.6 % (41.0-53.0); Lymphocytes # (auto) 1.7 10 ^3/uL (0.4-5.4); Lymphocytes % (auto) 18.2 % (10.0-50.0); Mean Corpuscular Hemoglobin 25.4 pg (28.0-32.0); Mean Corpuscular Hgb Conc. 31.4 g/dL (32.0-36.0); Mean Corpuscular Volume 80.8 fL (80.0-100.0); Monocytes % (auto) 7.3 % (0.0-12.0); Neutrophils # (auto) 6.5 10 ^3/uL (1.6-8.6); Neutrophils % (auto) 70.1 % (37.0-80.0); Platelet Count (auto) 458 10^3/uL (140-450); Red Blood Cells 2.55 10^6/uL (4.5-5.90); White Blood Cell 9.3 10^3/uL (4.4-10.8)
[2020-03-28 19:33] LABS: Hemoglobin 6.5 g/dL (13.5-17.5)
[2020-03-28 19:37] LABS: Potassium 3.8 mmol/L (3.5-5.1)
[2020-03-28 19:46] LABS: Albumin 3.1 g/dL (3.4-5.0); BUN/Creatinine Ratio 7.3; Bilirubin, Total 0.3 mg/dL (0.2-1.0); Calcium 7.5 mg/dL (8.5-10.1); Total Protein 8.6 g/dL (6.4-8.2)
[2020-03-28 20:01] LABS: INR 1.05 (0.9-1.15); Partial Thromboplastin Time 29.6 sec (23.0-31.2)
[2020-03-28] MEDS ORDERED: ACETAMINOPHEN 325 MG TAB PO PRN (21:00)
[2020-03-28] MEDS ORDERED: ONDANSETRON HCL 4 MG/2 ML VIAL IV PRN (21:00)
[2020-03-28] MEDS ORDERED: TEMAZEPAM 15 MG CAP PO PRN (21:00)
[2020-03-28] MEDS: cefTRIAXone 1GM/50ML D5W 50 ML IV SCH (21:26)
[2020-03-28] MEDS: CARVEDILOL 12.5 MG TAB PO SCH (22:09)
[2020-03-28] MEDS: ATORVASTATIN 20 MG TAB PO SCH (22:10)
[2020-03-28] MEDS: CLINDAMYCIN 600MG IV 50 ML IV SCH (22:16)
[2020-03-29 00:25] VITALS: BP 133/72
[2020-03-29 00:40] VITALS: BP 138/74
[2020-03-29] MEDS: CLINDAMYCIN 600MG IV 50 ML IV SCH ×3 (05:43→23:05)
[2020-03-29 07:15] LABS: Basophils # (auto) 0.1 10 ^3/uL (0-0.2); Basophils % (auto) 0.6 % (0.0-2.0); Eosinophils # (auto) 0.3 10 ^3/uL (0-0.8); Hemoglobin 8.1 g/dL (13.5-17.5); Nucleated Red Blood Cells % 0.1 %; Red Cell Distribution Width 17.5 % (11.8-14.3)
[2020-03-29 07:17] LABS: Hematocrit 24.9 % (41.0-53.0); Lymphocytes # (auto) 1.5 10 ^3/uL (0.4-5.4); Lymphocytes % (auto) 16.8 % (10.0-50.0); Mean Corpuscular Hemoglobin 26.7 pg (28.0-32.0); Mean Corpuscular Hgb Conc. 32.5 g/dL (32.0-36.0); Mean Corpuscular Volume 82.3 fL (80.0-100.0); Monocytes # (auto) 0.9 10 ^3/uL (0-1.3); Monocytes % (auto) 9.7 % (0.0-12.0); Neutrophils # (auto) 6.2 10 ^3/uL (1.6-8.6); Neutrophils % (auto) 69.9 % (37.0-80.0); Platelet Count (auto) 386 10^3/uL (140-450); Potassium 4.4 mmol/L (3.5-5.1); Red Blood Cells 3.03 10^6/uL (4.5-5.90); White Blood Cell 8.8 10^3/uL (4.4-10.8)
[2020-03-29 07:22] LABS: Albumin 2.8 g/dL (3.4-5.0); BUN/Creatinine Ratio 7.5; Bilirubin, Total 0.3 mg/dL (0.2-1.0); Total Protein 7.9 g/dL (6.4-8.2)
[2020-03-29] MEDS: cefTRIAXone 1GM/50ML D5W 50 ML IV SCH (09:33)
[2020-03-29 09:51] LABS: INR 1.07 (0.9-1.15); Partial Thromboplastin Time 32.9 sec (23.0-31.2)
[2020-03-29] MEDS: CARVEDILOL 12.5 MG TAB PO SCH ×2 (10:27→23:06)
[2020-03-29] MEDS: ASPirin 81 mg TAB PO SCH (10:28)
[2020-03-29 12:00] VITALS: BP 139/74
[2020-03-29] MEDS: cloNIDine HCL 0.1 MG TAB PO PRN (17:56)
[2020-03-29] MEDS ORDERED: SODIUM CHL 0.9% 1000 ML BAG XX ONE (19:00)
[2020-03-29 20:30] VITALS: BP 156/80
[2020-03-29 22:00] VITALS: BP 156/80
[2020-03-29] MEDS: ATORVASTATIN 20 MG TAB PO SCH (23:06)
[2020-03-30 05:00] VITALS: BP 154/79
[2020-03-30] MEDS: CLINDAMYCIN 600MG IV 50 ML IV SCH ×3 (05:53→21:52)
[2020-03-30] MEDS: cefTRIAXone 1GM/50ML D5W 50 ML IV SCH (08:14)
[2020-03-30 08:15] VITALS: BP 163/87
[2020-03-30 09:00] VITALS: BP 163/87
[2020-03-30] MEDS ORDERED: NEOSTIGMINE 1 MG/ML INJ (10mg/10ML VIAL) IV ONE (10:00)
[2020-03-30] MEDS ORDERED: GLYCOPYRROLATE 0.2 MG/ML 1ML VIAL IV ONE (10:00)
[2020-03-30] MEDS: CARVEDILOL 12.5 MG TAB PO SCH ×2 (10:00→22:05)
[2020-03-30] MEDS ORDERED: POVIDONE IODINE 10 % TOPICAL OINT 30GM TOP ONE (10:00)
[2020-03-30] MEDS: ASPirin 81 mg TAB PO SCH ×2 (10:00→14:35)
[2020-03-30] MEDS ORDERED: CARVEDILOL 12.5 MG TAB PO ONE (10:40)
[2020-03-30] MEDS ORDERED: ROCURONIUM 10MG/ML 10ML VIAL IV ONE (10:43)
[2020-03-30] MEDS ORDERED: fentaNYL CITRATE 5 ML ONE (10:43)
[2020-03-30] MEDS ORDERED: PROPOFOL 10 MG/ML 20 ML IV ONE (10:44)
[2020-03-30] MEDS ORDERED: MIDAZOLAM HCL 1MG/1ML-2 ML VIAL ONE (10:45)
[2020-03-30] MEDS ORDERED: MORPHINE SULF INJ 2 MG/ML SYRINGE 1ML IV PRN (12:00)
[2020-03-30] MEDS ORDERED: KETOROLAC TROMETH 30 MG/ML 1ML VIAL IV PRN (12:00)
[2020-03-30] MEDS ORDERED: ONDANSETRON HCL 4 MG/2 ML VIAL IV PRN ×2 (12:00→12:45)
[2020-03-30] MEDS ORDERED: ACETAMINOPHEN 325 MG TAB PO PRN (12:15)
[2020-03-30] MEDS ORDERED: hydrALAZINE HCL 20 MG/ML VL IV PRN (12:45)
[2020-03-30] MEDS ORDERED: ePHEDrine SULFATE 50 MG/ML AMP IV PRN (12:45)
[2020-03-30] MEDS ORDERED: MORPHINE SULFATE 4 MG/ML SYR/VIAL IV PRN (12:45)
[2020-03-30 13:30] VITALS: BP 153/81
[2020-03-30] MEDS: cloNIDine HCL 0.1 MG TAB PO PRN (14:39)
[2020-03-30 16:43] VITALS: BP 151/88
[2020-03-30] MEDS: ATORVASTATIN 20 MG TAB PO SCH (21:52)
[2020-03-30] MEDS: TEMAZEPAM 15 MG CAP PO PRN (21:53)
[2020-03-31] VITALS: BP 108/75
[2020-03-31] MEDS: HYDROcodone-ACET 5/325MG TAB PO PRN (00:31)
[2020-03-31] MEDS: cloNIDine HCL 0.1 MG TAB PO PRN (00:31)
[2020-03-31] MEDS ORDERED: hydrALAZINE HCL 20 MG/ML VL IV PRN (02:30)
[2020-03-31] MEDS ORDERED: amLODIPine BESYLATE 5 MG TAB PO ONE (03:30)
[2020-03-31] MEDS ORDERED: hydrALAZINE HCL 25 MG TAB PO ONE (03:30)
[2020-03-31] MEDS ORDERED: MORPHINE SULF INJ 2 MG/ML SYRINGE 1ML IV PRN (03:30)
[2020-03-31] MEDS: hydrALAZINE HCL 25 MG TAB PO SCH ×3 (05:21→22:19)
[2020-03-31] MEDS: CLINDAMYCIN 600MG IV 50 ML IV SCH ×3 (05:21→22:17)
[2020-03-31 08:00] VITALS: BP 138/89
[2020-03-31] MEDS: cefTRIAXone 1GM/50ML D5W 50 ML IV SCH (08:56)
[2020-03-31] MEDS ORDERED: SODIUM CHL 0.9% 1000 ML BAG XX ONE (09:15)
[2020-03-31] MEDS: PANTOPRAZOLE 40 MG/10 ML VIAL INJ IV SCH (10:00)
[2020-03-31] MEDS: amLODIPine BESYLATE 5 MG TAB PO SCH (10:00)
[2020-03-31] MEDS: CARVEDILOL 12.5 MG TAB PO SCH ×2 (10:00→22:20)
[2020-03-31] MEDS: ASPirin 81 mg TAB PO SCH (10:00)
[2020-03-31 17:46] LABS: Eosinophils # (auto) 0.3 10 ^3/uL (0-0.8); Eosinophils % (auto) 3.8 % (0.0-7.0)
[2020-03-31 17:48] LABS: Basophils # (auto) 0 10 ^3/uL (0-0.2); Basophils % (auto) 0.6 % (0.0-2.0); Hematocrit 27.2 % (41.0-53.0); Hemoglobin 8.8 g/dL (13.5-17.5); Lymphocytes # (auto) 1.2 10 ^3/uL (0.4-5.4); Lymphocytes % (auto) 16.4 % (10.0-50.0); Mean Corpuscular Hemoglobin 26.6 pg (28.0-32.0); Mean Corpuscular Hgb Conc. 32.3 g/dL (32.0-36.0); Mean Corpuscular Volume 82.2 fL (80.0-100.0); Monocytes % (auto) 13.3 % (0.0-12.0); Neutrophils % (auto) 65.9 % (37.0-80.0); Platelet Count (auto) 406 10^3/uL (140-450); Red Blood Cells 3.31 10^6/uL (4.5-5.90); White Blood Cell 7.6 10^3/uL (4.4-10.8)
[2020-03-31] MEDS ORDERED: EPOETIN ALFA 10,000 UNIT/1 ML VIAL SC ONE ×2 (21:00)
[2020-03-31 22:23] VITALS: BP 158/91
[2020-03-31] MEDS: ATORVASTATIN 20 MG TAB PO SCH (22:48)
[2020-04-01 05:00] VITALS: BP 145/87
[2020-04-01] MEDS: hydrALAZINE HCL 25 MG TAB PO SCH ×3 (05:35→21:21)
[2020-04-01] MEDS: CLINDAMYCIN 600MG IV 50 ML IV SCH ×3 (05:36→21:21)
[2020-04-01 06:12] LABS: Lymphocytes # (auto) 1.2 10 ^3/uL (0.4-5.4); Monocytes # (auto) 0.8 10 ^3/uL (0-1.3)
[2020-04-01 06:15] LABS: Basophils # (auto) 0 10 ^3/uL (0-0.2); Basophils % (auto) 0.6 % (0.0-2.0); Eosinophils # (auto) 0.2 10 ^3/uL (0-0.8); Eosinophils % (auto) 3.4 % (0.0-7.0); Hematocrit 27.4 % (41.0-53.0); Mean Corpuscular Hemoglobin 26.9 pg (28.0-32.0); Mean Corpuscular Hgb Conc. 32.8 g/dL (32.0-36.0); Mean Corpuscular Volume 82.1 fL (80.0-100.0); Monocytes % (auto) 11.2 % (0.0-12.0); Neutrophils % (auto) 68.8 % (37.0-80.0); Platelet Count (auto) 369 10^3/uL (140-450); Red Blood Cells 3.33 10^6/uL (4.5-5.90); Red Cell Distribution Width 17.8 % (11.8-14.3); White Blood Cell 7.3 10^3/uL (4.4-10.8)
[2020-04-01 06:51] LABS: Albumin 2.8 g/dL (3.4-5.0); BUN/Creatinine Ratio 7.6; Bilirubin, Total 0.3 mg/dL (0.2-1.0); Calcium 6.9 mg/dL (8.5-10.1)
[2020-04-01 07:01] LABS: Potassium 5.9 mmol/L (3.5-5.1)
[2020-04-01] MEDS ORDERED: SODIUM ZIRCONIUM CYCL 10 GM PAK PO ONE (07:30)
[2020-04-01 08:00] VITALS: BP 140/68
[2020-04-01 09:00] VITALS: BP 140/68
[2020-04-01] MEDS: PANTOPRAZOLE 40 MG/10 ML VIAL INJ IV SCH (09:40)
[2020-04-01] MEDS: cefTRIAXone 1GM/50ML D5W 50 ML IV SCH (09:40)
[2020-04-01] MEDS: ASPirin 81 mg TAB PO SCH (09:40)
[2020-04-01] MEDS: amLODIPine BESYLATE 5 MG TAB PO SCH (09:41)
[2020-04-01] MEDS: CARVEDILOL 12.5 MG TAB PO SCH ×2 (09:41→21:22)
[2020-04-01] MEDS: HYDROcodone-ACET 5/325MG TAB PO PRN ×2 (09:42→17:40)
[2020-04-01] MEDS ORDERED: DEXTROSE (50%) 50ML SYRG IV ONE (11:15)
[2020-04-01] MEDS ORDERED: BUMETANIDE 2.5mg/10ml (0.25 mg/ml) INJ IV ONE (11:15)
[2020-04-01] MEDS ORDERED: InsuLIN REG 1unit/0.01ml Soln (100units/ml) IV ONE (11:15)
[2020-04-01 13:00] VITALS: BP 127/79
[2020-04-01] MEDS: MORPHINE SULF INJ 2 MG/ML SYRINGE 1ML IV PRN ×2 (14:28→21:10)
[2020-04-01 16:38] VITALS: BP 142/88
[2020-04-01] MEDS: ATORVASTATIN 20 MG TAB PO SCH (21:22)
[2020-04-01 22:00] VITALS: BP 144/83
[2020-04-01] MEDS: TEMAZEPAM 15 MG CAP PO PRN (23:03)
[2020-04-02 04:45] VITALS: BP 149/95
[2020-04-02] MEDS: CLINDAMYCIN 600MG IV 50 ML IV SCH ×3 (05:37→21:35)
[2020-04-02] MEDS: hydrALAZINE HCL 25 MG TAB PO SCH ×3 (05:37→21:07)
[2020-04-02] MEDS: HYDROcodone-ACET 5/325MG TAB PO PRN ×4 (05:49→21:10)
[2020-04-02 06:38] LABS: Potassium 5.3 mmol/L (3.5-5.1)
[2020-04-02 06:51] LABS: BUN/Creatinine Ratio 8.4; Calcium 6.2 mg/dL (8.5-10.1)
[2020-04-02 08:00] VITALS: BP 157/88
[2020-04-02 09:00] VITALS: BP 157/88
[2020-04-02] MEDS: cefTRIAXone 1GM/50ML D5W 50 ML IV SCH (09:37)
[2020-04-02] MEDS: PANTOPRAZOLE 40 MG/10 ML VIAL INJ IV SCH (09:37)
[2020-04-02] MEDS: ASPirin 81 mg TAB PO SCH (09:37)
[2020-04-02] MEDS: CARVEDILOL 12.5 MG TAB PO SCH ×2 (09:38→21:10)
[2020-04-02] MEDS: amLODIPine BESYLATE 5 MG TAB PO SCH (09:38)
[2020-04-02 13:00] VITALS: BP 148/86
[2020-04-02] MEDS: SODIUM ZIRCONIUM CYCL 10 GM PAK PO SCH ×3 (13:51→23:22)
[2020-04-02] MEDS: MORPHINE SULF INJ 2 MG/ML SYRINGE 1ML IV PRN (14:12)
[2020-04-02 17:00] VITALS: BP 134/76
[2020-04-02] MEDS: ATORVASTATIN 20 MG TAB PO SCH (21:10)
[2020-04-02 22:00] VITALS: BP 158/89
[2020-04-03] MEDS: HYDROcodone-ACET 5/325MG TAB PO PRN ×2 (03:41→10:45)
[2020-04-03] MEDS: cloNIDine HCL 0.1 MG TAB PO PRN (04:06)
[2020-04-03] MEDS: CLINDAMYCIN 600MG IV 50 ML IV SCH ×3 (06:00→21:51)
[2020-04-03] MEDS: hydrALAZINE HCL 25 MG TAB PO SCH ×3 (06:00→21:49)
[2020-04-03] MEDS: SODIUM ZIRCONIUM CYCL 10 GM PAK PO SCH ×3 (06:00→21:51)
[2020-04-03 06:12] LABS: Basophils # (auto) 0.1 10 ^3/uL (0-0.2); Basophils % (auto) 0.9 % (0.0-2.0); Eosinophils # (auto) 0.4 10 ^3/uL (0-0.8); Lymphocytes # (auto) 1.3 10 ^3/uL (0.4-5.4); Lymphocytes % (auto) 16.5 % (10.0-50.0); Mean Corpuscular Hgb Conc. 33.2 g/dL (32.0-36.0); Mean Corpuscular Volume 81.2 fL (80.0-100.0); Monocytes # (auto) 0.7 10 ^3/uL (0-1.3); Monocytes % (auto) 8.9 % (0.0-12.0); Neutrophils # (auto) 5.5 10 ^3/uL (1.6-8.6); Neutrophils % (auto) 68.7 % (37.0-80.0); Platelet Count (auto) 372 10^3/uL (140-450); Red Blood Cells 2.95 10^6/uL (4.5-5.90); Red Cell Distribution Width 17.7 % (11.8-14.3)
[2020-04-03 06:22] LABS: % Iron Saturation 18.4 % (20-55)
[2020-04-03 06:33] LABS: Calcium 6.3 mg/dL (8.5-10.1); Potassium 5.4 mmol/L (3.5-5.1)
[2020-04-03 06:35] LABS: INR 1.08 (0.9-1.15); Partial Thromboplastin Time 34.7 sec (23.0-31.2)
[2020-04-03] MEDS ORDERED: SODIUM CHL 0.9% 1000 ML BAG XX ONE (07:00)
[2020-04-03 09:00] VITALS: BP 140/77
[2020-04-03] MEDS: cefTRIAXone 1GM/50ML D5W 50 ML IV SCH (10:45)
[2020-04-03] MEDS: amLODIPine BESYLATE 5 MG TAB PO SCH (10:45)
[2020-04-03] MEDS: ASPirin 81 mg TAB PO SCH (10:45)
[2020-04-03] MEDS: PANTOPRAZOLE 40 MG/10 ML VIAL INJ IV SCH (10:45)
[2020-04-03] MEDS: CARVEDILOL 12.5 MG TAB PO SCH ×2 (10:45→21:50)
[2020-04-03 12:30] VITALS: BP 148/87
[2020-04-03] MEDS ORDERED: LIDOCAINE 2%HCL (LOCAL ANESTH.) INJ 20ML MDV ONE (14:26)
[2020-04-03] MEDS ORDERED: IOHEXOL 350 MG/ML 100ML IJ ONE (14:26)
[2020-04-03] MEDS ORDERED: ANGIOMAX 250 MG VIAL IV ONE (14:27)
[2020-04-03] MEDS ORDERED: fentaNYL CITRATE 100 MCG/2 ML VL ONE ×2 (14:28→17:14)
[2020-04-03] MEDS ORDERED: SODIUM CHL 0.9% 50 ML ONE (14:28)
[2020-04-03] MEDS ORDERED: MIDAZOLAM HCL 1MG/1ML-2 ML VIAL ONE (14:28)
[2020-04-03] MEDS ORDERED: IODIXANOL 320MG/ML 100ML BTL IV ONE (16:36)
[2020-04-03] MEDS ORDERED: CLOPIDOGREL 300 MG TAB ONE (17:19)
[2020-04-03] MEDS ORDERED: ASPirin 325 MG TAB ONE (17:20)
[2020-04-03 19:52] LABS: Basophils # (auto) 0 10 ^3/uL (0-0.2); Eosinophils # (auto) 0.2 10 ^3/uL (0-0.8); Mean Corpuscular Hgb Conc. 32.5 g/dL (32.0-36.0); Monocytes # (auto) 0.7 10 ^3/uL (0-1.3); Neutrophils # (auto) 5.3 10 ^3/uL (1.6-8.6); White Blood Cell 7.3 10^3/uL (4.4-10.8)
[2020-04-03 19:54] LABS: Basophils % (auto) 0.6 % (0.0-2.0); Eosinophils % (auto) 3.2 % (0.0-7.0); Hematocrit 24.6 % (41.0-53.0); Mean Corpuscular Hemoglobin 26.6 pg (28.0-32.0); Mean Corpuscular Volume 81.9 fL (80.0-100.0); Monocytes % (auto) 9.6 % (0.0-12.0); Neutrophils % (auto) 72.6 % (37.0-80.0); Platelet Count (auto) 368 10^3/uL (140-450)
[2020-04-03] MEDS ORDERED: EPOETIN ALFA 10,000 UNIT/1 ML VIAL SC ONE (21:00)
[2020-04-03] MEDS: ATORVASTATIN 20 MG TAB PO SCH (21:47)
[2020-04-03 22:00] VITALS: BP 157/84
[2020-04-04 02:03] LABS: Basophils # (auto) 0.1 10 ^3/uL (0-0.2); Hemoglobin 8.2 g/dL (13.5-17.5); Monocytes # (auto) 0.7 10 ^3/uL (0-1.3); Neutrophils # (auto) 6.5 10 ^3/uL (1.6-8.6); White Blood Cell 8.4 10^3/uL (4.4-10.8)
[2020-04-04 02:07] LABS: Basophils % (auto) 0.7 % (0.0-2.0); Eosinophils # (auto) 0.2 10 ^3/uL (0-0.8); Eosinophils % (auto) 2.7 % (0.0-7.0); Hematocrit 24.9 % (41.0-53.0); Lymphocytes # (auto) 0.9 10 ^3/uL (0.4-5.4); Lymphocytes % (auto) 10.2 % (10.0-50.0); Mean Corpuscular Hemoglobin 26.6 pg (28.0-32.0); Mean Corpuscular Volume 80.8 fL (80.0-100.0); Monocytes % (auto) 8.8 % (0.0-12.0); Neutrophils % (auto) 77.6 % (37.0-80.0); Platelet Count (auto) 380 10^3/uL (140-450); Red Blood Cells 3.09 10^6/uL (4.5-5.90); Red Cell Distribution Width 17.9 % (11.8-14.3)
[2020-04-04] MEDS: HYDROcodone-ACET 5/325MG TAB PO PRN ×2 (04:35→12:02)
[2020-04-04 05:00] VITALS: BP 146/83
[2020-04-04] MEDS: CLINDAMYCIN 600MG IV 50 ML IV SCH ×2 (05:35→13:47)
[2020-04-04] MEDS: SODIUM ZIRCONIUM CYCL 10 GM PAK PO SCH (05:35)
[2020-04-04] MEDS: hydrALAZINE HCL 25 MG TAB PO SCH ×2 (05:36→13:47)
[2020-04-04 08:06] LABS: BUN/Creatinine Ratio 6.7; Calcium 6.8 mg/dL (8.5-10.1); Potassium 4.1 mmol/L (3.5-5.1)
[2020-04-04 09:00] VITALS: BP 133/80
[2020-04-04] MEDS: cefTRIAXone 1GM/50ML D5W 50 ML IV SCH (09:00)
[2020-04-04] MEDS: ASPirin 81 mg TAB PO SCH (10:00)
[2020-04-04] MEDS ORDERED: CLOPIDOGREL BISULFATE 75 MG TAB PO SCH ×2 (10:00)
[2020-04-04] MEDS: amLODIPine BESYLATE 5 MG TAB PO SCH (10:11)
[2020-04-04] MEDS: CARVEDILOL 12.5 MG TAB PO SCH (10:11)
[2020-04-04] MEDS: PANTOPRAZOLE 40 MG/10 ML VIAL INJ IV SCH (10:11)
[2020-04-04 13:00] VITALS: BP 144/84
[2020-04-04 14:11] VITALS: BP 144/84
== END 2020-04-04 17:17 | disposition home health service (06) | DRG 270 ==
LOC: ER 16:23 → OVERFLOW 16:24 → EAST 03-29 20:23
PROVIDERS: ADMIT Nurse Practitioner; ATTEND Family Medicine
PROC: 30233N1 Transfusion of Nonautologous Red Blood Cells into Peripheral Vein, Percutaneous Approach (ICD-10-PCS; 2020-03-29)
PROC: 5A1D70Z Performance of Urinary Filtration, Intermittent, Less than 6 Hours Per Day (ICD-10-PCS; 2020-03-29)
PROC: 0Y6H0Z1 Detachment at Right Lower Leg, High, Open Approach (ICD-10-PCS; 2020-03-30)
PROC: 5A1D70Z Performance of Urinary Filtration, Intermittent, Less than 6 Hours Per Day (ICD-10-PCS; 2020-03-31)
PROC: 04CQ3ZZ Extirpation of Matter from Left Anterior Tibial Artery, Percutaneous Approach (ICD-10-PCS; principal; 2020-04-03)
PROC: 047Q3ZZ Dilation of Left Anterior Tibial Artery, Percutaneous Approach (ICD-10-PCS; 2020-04-03)
PROC: 047S3ZZ Dilation of Left Posterior Tibial Artery, Percutaneous Approach (ICD-10-PCS; 2020-04-03)
PROC: 04CS3ZZ Extirpation of Matter from Left Posterior Tibial Artery, Percutaneous Approach (ICD-10-PCS; 2020-04-03)
PROC: B41GYZZ Fluoroscopy of Left Lower Extremity Arteries using Other Contrast (ICD-10-PCS; 2020-04-03)
PROC: B41FYZZ Fluoroscopy of Right Lower Extremity Arteries using Other Contrast (ICD-10-PCS; 2020-04-03)
PROC: 5A1D70Z Performance of Urinary Filtration, Intermittent, Less than 6 Hours Per Day (ICD-10-PCS; 2020-04-03)
DX: I96 Gangrene, not elsewhere classified (principal); I21.4 Non-ST elevation (NSTEMI) myocardial infarction; N18.6 End stage renal disease; I12.0 Hypertensive chronic kidney disease with stage 5 chronic kidney disease or end stage renal disease; L03.115 Cellulitis of right lower limb; E44.0 Moderate protein-calorie malnutrition; R64 Cachexia; D63.8 Anemia in other chronic diseases classified elsewhere; E89.0 Postprocedural hypothyroidism; Z20.822 Contact with and (suspected) exposure to COVID-19; D63.1 Anemia in chronic kidney disease; E87.5 Hyperkalemia; E78.5 Hyperlipidemia, unspecified; Y83.8 Other surgical procedures as the cause of abnormal reaction of the patient, or of later complication, without mention of misadventure at the time of the procedure; Z68.22 Body mass index [BMI] 22.0-22.9, adult; Y92.89 Other specified places as the place of occurrence of the external cause; Z79.899 Other long term (current) drug therapy; Z99.2 Dependence on renal dialysis; Z82.49 Family history of ischemic heart disease and other diseases of the circulatory system
CPT/HCPCS: 36415; 37229; 37233; 71045; 73700; 73718; 75716; 80048; 80053; 82728; 82962; 83540; 83550; 83605; 84132; 84484; 85025; 85610; 85730; 86850; 86900; 86901; 86920; 87040; 87081; 87426; 90935; 93926; 97110; 99152; 99153; C9113; G0378; J0696; J0885; J1815; J1885; J2250; J2405; J2543; J2704; J3490; Q9967

== ENCOUNTER 2020-05-10 17:46 | Inpatient (IN) | payer MEDICARE, MEDICAID ==
[~2020-05-10] VITALS: Ht 180.3 cm; Wt 71.6 kg
[~2020-05-10 17:46] MED LIST changes: -ROSU10TA16 PO; -SULF800T8 PO
[2020-05-10] MEDS ORDERED: CALC600T5 PO (17:52)
[2020-05-10] MEDS ORDERED: SEVE800T PO (17:52)
[2020-05-10] MEDS ORDERED: CALC0.5C PO (17:52)
[2020-05-10 19:11] LABS: Basophils # (auto) 0.1 10 ^3/uL (0-0.2); Basophils % (auto) 1.1 % (0.0-2.0); Eosinophils # (auto) 0.3 10 ^3/uL (0-0.8); Eosinophils % (auto) 4.8 % (0.0-7.0); Hematocrit 34.7 % (41.0-53.0); Hemoglobin 11.5 g/dL (13.5-17.5); Lymphocytes # (auto) 1.4 10 ^3/uL (0.4-5.4); Lymphocytes % (auto) 23.9 % (10.0-50.0); Mean Corpuscular Hemoglobin 29.2 pg (28.0-32.0); Mean Corpuscular Hgb Conc. 33.2 g/dL (32.0-36.0); Mean Corpuscular Volume 88.2 fL (80.0-100.0); Monocytes # (auto) 0.5 10 ^3/uL (0-1.3); Monocytes % (auto) 8.3 % (0.0-12.0); Neutrophils # (auto) 3.7 10 ^3/uL (1.6-8.6); Neutrophils % (auto) 61.9 % (37.0-80.0); Platelet Count (auto) 221 10^3/uL (140-450); Red Blood Cells 3.93 10^6/uL (4.5-5.90)
[2020-05-10 19:20] LABS: INR 1.05 (0.9-1.15); Partial Thromboplastin Time 27.2 sec (23.0-31.2)
[2020-05-10] MEDS ORDERED: cefTRIAXone 1GM/50ML D5W 50 ML IV ONE (19:30)
[2020-05-10 19:34] LABS: Albumin 3.9 g/dL (3.4-5.0); Calcium 8.3 mg/dL (8.5-10.1); Magnesium 2.4 mg/dL (1.6-2.6); Potassium 4.3 mmol/L (3.5-5.1)
[2020-05-10 19:38] LABS: BUN/Creatinine Ratio 5.6; Bilirubin, Total 0.4 mg/dL (0.2-1.0); Red Cell Distribution Width 21.2 % (11.8-14.3); Total Protein 8.1 g/dL (6.4-8.2)
[2020-05-10] MEDS ORDERED: ACETAMINOPHEN 325 MG TAB PO PRN (21:00)
[2020-05-10] MEDS ORDERED: TEMAZEPAM 15 MG CAP PO PRN (21:00)
[2020-05-10] MEDS ORDERED: ONDANSETRON HCL 4 MG/2 ML VIAL IV PRN (21:00)
[2020-05-10] MEDS ORDERED: CLINDAMYCIN 600MG IV 50 ML IV SCH (22:00)
[2020-05-10 22:15] VITALS: BP 149/68
[2020-05-10] MEDS: cloNIDine HCL 0.1 MG TAB PO SCH (23:17)
[2020-05-10] MEDS: CARVEDILOL 12.5 MG TAB PO SCH (23:18)
[2020-05-10] MEDS: ATORVASTATIN 20 MG TAB PO SCH (23:18)
[2020-05-10 23:26] VITALS: BP 149/68
[2020-05-11 07:14] LABS: Basophils # (auto) 0.1 10 ^3/uL (0-0.2); Basophils % (auto) 0.9 % (0.0-2.0); Eosinophils # (auto) 0.2 10 ^3/uL (0-0.8); Eosinophils % (auto) 4.4 % (0.0-7.0); Hematocrit 34.8 % (41.0-53.0); Hemoglobin 11.4 g/dL (13.5-17.5); Lymphocytes # (auto) 1.4 10 ^3/uL (0.4-5.4); Lymphocytes % (auto) 26.4 % (10.0-50.0); Mean Corpuscular Hemoglobin 28.8 pg (28.0-32.0); Mean Corpuscular Hgb Conc. 32.8 g/dL (32.0-36.0); Mean Corpuscular Volume 87.7 fL (80.0-100.0); Monocytes # (auto) 0.6 10 ^3/uL (0-1.3); Monocytes % (auto) 11.5 % (0.0-12.0); Neutrophils % (auto) 56.8 % (37.0-80.0); Nucleated Red Blood Cells % 0.2 %; Platelet Count (auto) 198 10^3/uL (140-450); Red Blood Cells 3.96 10^6/uL (4.5-5.90); Red Cell Distribution Width 20.7 % (11.8-14.3); White Blood Cell 5.4 10^3/uL (4.4-10.8)
[2020-05-11 07:30] LABS: Potassium 4.3 mmol/L (3.5-5.1)
[2020-05-11 07:32] LABS: BUN/Creatinine Ratio 6.8
[2020-05-11 09:00] VITALS: BP 139/77
[2020-05-11] MEDS: cefTRIAXone 1GM/50ML D5W 50 ML IV SCH (10:39)
[2020-05-11] MEDS: CARVEDILOL 12.5 MG TAB PO SCH ×2 (10:40→21:28)
[2020-05-11] MEDS: CLOPIDOGREL BISULFATE 75 MG TAB PO SCH (10:40)
[2020-05-11] MEDS: cloNIDine HCL 0.1 MG TAB PO SCH ×2 (10:40→21:27)
[2020-05-11] MEDS: PANTOPRAZOLE 40 MG TAB PO SCH (10:41)
[2020-05-11] MEDS: SEVELAMER 800 MG TAB PO SCH ×3 (10:41→21:27)
[2020-05-11 12:55] VITALS: BP 179/95
[2020-05-11] MEDS ORDERED: cloNIDine 0.2 mg/24hr 7DAY PATCH TD PRN (13:15)
[2020-05-11] MEDS ORDERED: cloNIDine HCL 0.1 MG TAB PO PRN (14:15)
[2020-05-11] MEDS ORDERED: ASPI-498 PO (16:35)
[2020-05-11 16:47] VITALS: BP 145/86
[2020-05-11] MEDS: HYDROcodone-ACET 5/325MG TAB PO PRN (17:23)
[2020-05-11 20:00] VITALS: BP 140/76
[2020-05-11] MEDS: ATORVASTATIN 20 MG TAB PO SCH (21:28)
[2020-05-11 22:00] VITALS: BP 140/76
[2020-05-12 05:00] VITALS: BP 150/79
[2020-05-12] MEDS ORDERED: SODIUM CHL 0.9% 1000 ML BAG XX ONE (07:00)
[2020-05-12] MEDS: HYDROcodone-ACET 5/325MG TAB PO PRN ×2 (08:06→16:16)
[2020-05-12] MEDS: SEVELAMER 800 MG TAB PO SCH ×2 (08:06→12:00)
[2020-05-12] MEDS: PANTOPRAZOLE 40 MG TAB PO SCH (08:06)
[2020-05-12] MEDS: CLOPIDOGREL BISULFATE 75 MG TAB PO SCH (08:07)
[2020-05-12] MEDS: cefTRIAXone 1GM/50ML D5W 50 ML IV SCH (08:07)
[2020-05-12] MEDS: CARVEDILOL 12.5 MG TAB PO SCH (09:12)
[2020-05-12] MEDS: cloNIDine HCL 0.1 MG TAB PO SCH (09:13)
[2020-05-12 09:28] VITALS: BP 146/74
[2020-05-12 13:15] VITALS: BP 151/82
[2020-05-12 14:04] VITALS: BP 146/74
[2020-05-15 14:59] LABS: Hepatitis A Ab IgM Negative; Hepatitis B Core IgM Negative; Hepatitis B Surface Antigen Negative (Negative)
[2020-05-15 15:00] LABS: Hepatitis C Antibody Negative (Negative)
== END 2020-05-12 16:30 | disposition home health service (06) | DRG 564 ==
LOC: ER 17:46 → OVERFLOW 21:00 → EAST 22:00
PROVIDERS: ADMIT Nurse Practitioner; ATTEND Family Medicine
PROC: 5A1D70Z Performance of Urinary Filtration, Intermittent, Less than 6 Hours Per Day (ICD-10-PCS; principal; 2020-05-12)
DX: T87.43 Infection of amputation stump, right lower extremity (principal); N18.6 End stage renal disease; L03.115 Cellulitis of right lower limb; I12.0 Hypertensive chronic kidney disease with stage 5 chronic kidney disease or end stage renal disease; D63.1 Anemia in chronic kidney disease; E78.00 Pure hypercholesterolemia, unspecified; I73.9 Peripheral vascular disease, unspecified; Y83.5 Amputation of limb(s) as the cause of abnormal reaction of the patient, or of later complication, without mention of misadventure at the time of the procedure; Z20.822 Contact with and (suspected) exposure to COVID-19; Z83.3 Family history of diabetes mellitus; Y92.89 Other specified places as the place of occurrence of the external cause; Z82.49 Family history of ischemic heart disease and other diseases of the circulatory system; Z99.2 Dependence on renal dialysis
CPT/HCPCS: 36415; 73590; 80048; 80053; 80074; 83735; 85025; 85610; 85730; 87040; 87077; 87081; 87186; 87205; 90935; 96365; G0378; J0696; J1642; J3490

== ENCOUNTER 2023-09-09 07:32 | Day surgery (SDC) | payer MEDICARE, MEDICAID ==
[2023-09-09] VITALS (11 sets, daily range): BP systolic 92–136; BP diastolic 54–81; PULSE 57–63; RESP 14–18; TEMP 98; O2SAT 94–98
[~2023-09-09] VITALS: Ht 162.6 cm; Wt 74.8 kg
[~2023-09-09 07:32] MED LIST changes: +ASPI-498 PO; -CALC-509 PO; +CALC0.5C PO; +CALC600T5 PO
[2023-09-09] MEDS ORDERED: MIDAZOLAM HCL 2MG/2ML 2ml VIAL (1mg/ml) IV ONE (08:45)
[2023-09-09] MEDS ORDERED: LIDOCAINE VISCOUS 2% 15ML UD PO ONE (08:45)
[2023-09-09] MEDS ORDERED: fentaNYL CITRATE 100 MCG/2 ML VL IV ONE (08:45)
== END 2023-09-09 10:25 | disposition home or self-care (01) ==
LOC: CATH 07:32
PROVIDERS: ATTEND Internal Medicine Cardiovascular Disease
DX: I08.1 Rheumatic disorders of both mitral and tricuspid valves (principal); I10 Essential (primary) hypertension; Z86.73 Personal history of transient ischemic attack (TIA), and cerebral infarction without residual deficits; Z82.49 Family history of ischemic heart disease and other diseases of the circulatory system
CPT/HCPCS: 93312; 93325; J2250; J3010; 99152

== ENCOUNTER 2023-11-11 07:50 | Day surgery (SDC) | payer MEDICARE, MEDICAID ==
[2023-11-11] MEDS ORDERED: HEPARIN IN NS 1000Units/500mL 1,500 ML ONE (10:24)
[2023-11-11] MEDS ORDERED: IODIXANOL 320MG/ML 100ML BTL IV ONE ×2 (10:24→11:23)
[2023-11-11] MEDS ORDERED: VERAPAMIL 2.5MG/ML INJ 2ML VIAL IV ONE (10:25)
[2023-11-11] MEDS ORDERED: HEPARIN SODIUM (PORCINE) 5000 UNITS/ML 1ML VIAL ONE (10:25)
[2023-11-11] MEDS ORDERED: ANGIOMAX 250 MG VIAL IV ONE (10:25)
[2023-11-11] MEDS ORDERED: LIDOCAINE 2%HCL (LOCAL ANESTH.) INJ 20ML MDV ONE (10:26)
[2023-11-11] MEDS ORDERED: SODIUM CHL 0.9% 50 ML ONE (10:26)
[2023-11-11] MEDS ORDERED: fentaNYL CITRATE 100 MCG/2 ML VL ONE (10:26)
[2023-11-11] MEDS ORDERED: MIDAZOLAM HCL 2MG/2ML 2ml VIAL (1mg/ml) ONE (10:26)
[2023-11-11] MEDS ORDERED: ASPirin 325 MG TAB ONE (11:33)
[2023-11-11] MEDS ORDERED: TICAGRELOR 90 MG TAB ONE (11:33)
[2023-11-11] MEDS ORDERED: TICA90TA PO (13:49)
== END 2023-11-11 14:23 | disposition home or self-care (01) ==
LOC: CATH 07:50
PROVIDERS: ATTEND Internal Medicine Cardiovascular Disease
DX: I25.10 Atherosclerotic heart disease of native coronary artery without angina pectoris (principal); R94.39 Abnormal result of other cardiovascular function study; I12.0 Hypertensive chronic kidney disease with stage 5 chronic kidney disease or end stage renal disease; N18.6 End stage renal disease; I69.851 Hemiplegia and hemiparesis following other cerebrovascular disease affecting right dominant side; Z98.890 Other specified postprocedural states; Z79.899 Other long term (current) drug therapy; I05.2 Rheumatic mitral stenosis with insufficiency
CPT/HCPCS: 71045; 93458; C1725; C1760; C1769; C1874; C1894; C9600; J0583; J1644; J2250; J3010; Q9967; 99152; 99153

== ENCOUNTER 2024-01-12 05:55 | Inpatient (IN) | payer MEDICARE, MEDICAID ==
[2024-01-08 14:23] LABS: Basophils # (auto) 0 10 ^3/uL (0-0.2); Eosinophils # (auto) 0.1 10 ^3/uL (0-0.8); Eosinophils % (auto) 3.8 % (0.0-7.0); Hematocrit 28.6 % (41.0-53.0); Hemoglobin 9.5 g/dL (13.5-17.5); Lymphocytes # (auto) 1.3 10 ^3/uL (0.4-5.4); Lymphocytes % (auto) 35.4 % (10.0-50.0); Mean Corpuscular Hemoglobin 31.2 pg (28.0-32.0); Mean Corpuscular Hgb Conc. 33.2 g/dL (32.0-36.0); Mean Corpuscular Volume 93.8 fL (80.0-100.0); Monocytes # (auto) 0.4 10 ^3/uL (0-1.3); Monocytes % (auto) 11.4 % (0.0-12.0); Neutrophils # (auto) 1.7 10 ^3/uL (1.6-8.6); Neutrophils % (auto) 48.4 % (37.0-80.0); Platelet Count (auto) 118 10^3/uL (140-450); Red Blood Cells 3.05 10^6/uL (4.5-5.90); Red Cell Distribution Width 15.8 % (11.8-14.3); White Blood Cell 3.6 10^3/uL (4.4-10.8)
[2024-01-08 14:32] LABS: INR 1.25 (0.9-1.15); Partial Thromboplastin Time 29.6 SEC (24.5-34.5)
[2024-01-08 14:38] LABS: Alanine Aminotransferase 16 U/L (7-40); Albumin 4.2 g/dL (3.2-4.8); Alkaline Phosphatase 56 U/L (46-116); Anion Gap 8 (5-15); Aspartate Aminotransferase < 8 U/L (13-40); BUN/Creatinine Ratio 3.7 (10.0-20.0); Bilirubin, Total 0.7 mg/dL (0.2-1.0); Blood Urea Nitrogen 29 mg/dL (9-23); Calcium 8.9 mg/dL (8.7-10.4); Carbon Dioxide 29 mmol/L (20-31); Chloride 107 mmol/L (98-107); Glucose 82 mg/dL (74-106); Sodium 144 mmol/L (136-145); Total Protein 6.5 g/dL (5.7-8.2)
[~2024-01-12] VITALS: Ht 180.3 cm; Wt 74.1 kg
[2024-01-12] VITALS (8 sets, daily range): BP systolic 99–151; BP diastolic 27–36; PULSE 53–69; RESP 14–18; TEMP 98.3; O2SAT 94–99
[~2024-01-12 05:55] MED LIST changes: +ATOR-47 PO; -CALC0.5C PO; -CALC600T5 PO; -CLON0.2T PO; +EZET-10 PO; +FER325T PO; -FERR1TAB17 PO; +LEVE500T40 PO; +NIFE1TAB36 PO; +SEVE800T8 PO; +TICA90TA PO
[2024-01-12] MEDS: ceFAZolin 2 GM/D5W100ml 100 ML IV ONE (06:24)
[2024-01-12] MEDS: LIDOCAINE 1% HCL (LOCAL ANESTH.) INJ 20ML MDV ONE (06:34)
[2024-01-12] MEDS: BUPIVACAINE HCL 0.25% P/F 10 ML VIAL ONE ×2 (06:34→07:07)
[2024-01-12] MEDS: HEPARIN 1,000 UNITS/ml 1ML VIAL ONE (06:36)
[2024-01-12] MEDS: LIDOCAINE 1% (LOCAL ANESTH.) PF 5ml SDV ONE ×3 (06:39→08:40)
[2024-01-12] MEDS ORDERED: ETOMIDATE (2MG/ML) 20ML VIAL IV ONE (06:42)
[2024-01-12] MEDS: HEPARIN SODIUM (PORCINE) 5000 UNITS/ML 1ML VIAL ONE ×2 (07:00→08:39)
[2024-01-12] MEDS: ROPIVACAINE 0.5% (5MG/ML) 20ML AMPULE IJ ONE (07:14)
[2024-01-12] MEDS ORDERED: fentaNYL CITRATE 100 MCG/2 ML VL ONE (07:33)
[2024-01-12] MEDS: HEPARIN SODIUM (PORCINE) 5000 UNITS/ML 1ML VIAL SC ONE (07:45)
[2024-01-12] MEDS ORDERED: SUGAMMADEX 200mg/2ml Vial (100MG/ML) IV ONE (09:20)
[2024-01-12] MEDS ORDERED: ePHEDrine SULFATE 50 MG/ML AMP IV PRN (09:45)
[2024-01-12] MEDS ORDERED: HYDROmorphone HCL 2 MG/ML VL/or syr IV PRN (09:45)
[2024-01-12] MEDS ORDERED: hydrALAZINE HCL 20 MG/ML VL IV PRN (09:45)
[2024-01-12] MEDS ORDERED: ONDANSETRON HCL 4 MG/2 ML VIAL IV ONE (09:45)
--- NOTE | 2024-01-12 09:47 | POSTOP ---
Post-Operative Note Post-Operative Note Preop Diagnosis Left critical common carotid artery and ICA stenosis. Postop Diagnosis: Same Operation performed Left common carotid endarterectomy Specimen Left common carotid artery plaque Anesthesia: General Anesthesiologist: general Blood Loss(fluid mgmt) 150ml Surgeon Sancho Vidal MD Date 01/12/24 Time 09:45 SANCHO VIDAL Jr., MD Jan 12, 2024 09:46
--- NOTE | 2024-01-12 09:53 | DVHOP2 ---
Operative Report - 2 Report Details Date: 01/12/24 Preop Diagnosis: Left critical common carotid artery and ICA stenosis. Postop Diagnosis: Same Surgeon: Sancho Vidal MD Anesthesiologist: general Anesthesia: General Consent: The patient was informed of the risks and benefits of the procedure. These include but are not limited to complications of anesthesia, postoperative infection, incomplete relief of symptoms, recurrence of symptoms, damage to blood vessels, nerves and tendons, deep venous thrombosis, pulmonary embolism and possible need for repeat surgery in the future. Estimated Blood Loss: 150ml Name of Procedure Performed Left common carotid endarterectomy Procedure Details Procedure Details: The patient was consented and preopped by myself. He was brought back to the operating room placed the operating table in supine position after adequate induction of anesthesia antibiotics and time-out the left neck was prepped and draped in normal surgical fashion a standard left carotid endarterectomy incision was made Bovie cauterization was used to dissect down through the platysma. The jugular vein was mobilized laterally. Attention was then placed on dissecting out the common carotid artery external carotid artery superior thyroid artery and internal carotid artery. All vessels were dissected freely and vessel loops were placed around each vessel involved. 1% lidocaine was injected into the carotid bifurcation bulb region no hemodynamic changes were noted. Careful attention was performed to identify all nerves involved and were preserved. 3000 units of heparin was given to the patient. Then the common internal external and superior thyroid artery were all clamped. A 11 blade was used to make an arteriotomy in the left common carotid artery this was extended to the internal carotid artery with Calhoun scissors. A heavy plaque burden was identified in the distal common carotid artery and proximal internal carotid artery this was removed and sent off for specimen. A Lr shunt was then inserted to restore flow. At this point in time the lumen of the common and internal carotid arteries were then further evaluated all fibrinous material and plaque were removed. The vessel was flushed with heparinized saline there were no debris left behind. A bovine pericardial patch was then sewn to the common internal carotid artery in a running fashion with 6 0 Prolene suture prior to completion of the anastomosis the shunt was removed the vessel lumen was flushed with heparinized saline and the anastomosis was completed. Vessel loops were slowly removed and flow was restored. There was 1 area at the distal portion of the patch which needed a repair stitch. This was done with interrupted 6 0 Prolene suture. Once this was complete and hemostasis was excellent and Surgicel was applied over top of the anastomosis a flat NIKO drain was then placed in the wound and exited the lateral portion of the neck via a stab incision. The drain was secured with 0 nylon suture. The wound was then closed with deep layers of 3-0 Vicryl to reapproximate the carotid sheath. Followed by 3-0 Vicryl for the platysma layer interruptedly. Followed by the dermal layer closed with interrupted 3-0 Vicryl suture. The subcuticular layer was closed with 4-0 Monocryl subcuticular suture. A Dermabond was applied to the skin. Sponge and needle counts were correct at the end the procedure. The patient awoke without any difficulty was taken to PACU in stable condition. Specimen: Left common carotid artery plaque Condition Good Disposition pacu SANCHO VIDAL Jr., MD Jan 12, 2024 09:53
[2024-01-12] MEDS ORDERED: NITROGLYCERIN 0.4 MG SL TAB SL PRN (10:00)
[2024-01-12] MEDS ORDERED: HYDROcodone-ACET 5/325MG TAB PO PRN (14:30)
[2024-01-12] MEDS ORDERED: DOCUSATE SOD 100 MG CAP PO PRN (14:30)
[2024-01-12] MEDS ORDERED: ONDANSETRON HCL 4 MG/2 ML VIAL IV PRN (14:30)
[2024-01-12] MEDS ORDERED: ACETAMINOPHEN 325 MG TAB PO PRN (14:30)
--- NOTE | 2024-01-12 14:40 | DVHHP2 ---
History of Present Illness Reason for Visit: Left common carotid artery plaque History of Present Illness The patient is a 48 years old male with multiple past medical history including end-stage renal disease on hemodialysis, thyroid disease, peripheral artery disease, and hypertension who presented to [facility] ED for evaluation of left critical common carotid artery and ICA stenosis. Patient was seen and evaluated by vascular team for surgery. A heavy plaque burden was identified in the distal common carotid artery and proximal internal carotid artery, this was removed and sent off for specimen. A Lr shunt was then inserted to restore flow. At this point in time the lumen of the common and internal carotid arteries were then further evaluated, all fibrinous material and plaque were removed. The vessel was flushed with heparinized saline, there were no debris left behind. The patient awoke without any difficulty and was taken to PACU in stable condition. Patient was seen and evaluated in PACU, laboratory data shows WBC 3.6, hemoglobin 9.5, hematocrit 28.6, platelets 118, sodium 144, potassium 4.0, BUN 29, creatinine 7.81, glucose 82, blood pressure 122/48, heart rate 54, temperature 97.4 F, O2 saturation 98% on oxygen. On my assessment, patient denied chest pain, no headache, no dizziness, no diaphoresis, no blurry vision, no shortness of breath, no diarrhea, no nausea, no vomiting, no fever, no chills. Patient was admitted for further evaluation and medical management. Past Medical History ESRD, HTN, CVA, Thyroid disease, Peripheral arterial disease Hemodialysis Friday Past Surgical History Thyroidectomy, Right below-knee amputation, right 4 fingers amputation Left upper arm AV shunt Family History Reviewed, noncontributory to the management of this case. Past Social History The patient lives at home, denies smoking, alcohol or illicit drugs abuse. Review of Systems Constitutional: Yes: Weakness; No: Fever, Chills, Sweats, Malaise, Other Eyes: No: Pain, Vision change, Conjunctivae inflammation, Eyelid inflammation, Other, Redness ENT: No: Ear pain, Ear discharge, Nose pain, Nose discharge, Nose congestion, Mouth pain, Mouth swelling, Throat pain, Throat swelling, Other Respiratory: No: Cough, Dry, Shortness of breath, SOB with excertion, Wheezing, Hemoptysis, Pleuritic Pain, Sputum, Wheezing, Other Cardiovascular: No: Chest Pain, Palpitations, Orthopnea, Paroxysmal Noc. Dyspnea, Edema, Lt Headedness, Other Gastrointestinal: No: Nausea, Vomiting, Abdominal Pain, Diarrhea, Constipation, Melena, Hematochezia, Other Genitourinary: No Dysuria, No Frequency, No Incontinence, No Hematuria, No Retention, No Other Musculoskeletal: other (Right BKA, right 4 finger amputation.); No: neck pain, shoulder pain, arm pain, back pain, hand pain, leg pain, foot pain Skin: Other (Left neck surgical wound with NIKO.); No: Rash, Lesions, Jaundice, Bruising Neurological: No: Weakness, Numbness, Incoordination, Change in speech, Confusion, Seizures, Other Allergies: Coded Allergies: NO KNOWN ALLERGIES (Unverified , 11/26/19) Medications Current Medications Medications Dose Ordered Sig/Sharmila Route Start Time Stop Time Status Last Admin Dose Admin Nitroglycerin 0.4 mg Q5MINP PRN SL 01/12/24 10:00 Exam Vital Signs Vital Signs Date Time Temp Pulse Resp B/P (MAP) Pulse Ox O2 Delivery O2 Flow Rate FiO2 01/12/24 12:20 54 13 111/47 (68) 98 01/12/24 09:34 Mask 6.0 01/12/24 09:34 97.4 97.4 01/12/24 09:34 99 General Appearance: Alert, Oriented X3, Cooperative, No acute distress HEENT: Atraumatic, PERRLA, EOMI, Mucous membr. moist/pink Respiratory: Clear to auscultation, Normal air movement Cardiovascular: Regular rate, Normal S1, Normal S2, No murmurs Abdominal: Normal bowel sounds, Soft, No tenderness, No hepatospenomegaly, No masses Extremities: No clubbing, No cyanosis, No edema, Normal pulses, No tenderness/swelling Skin: No rashes, No breakdown, No significant lesion Neuro: Normal speech, Normal tone, Sensation intact, Cranial nerves 3-12 NL, Reflexes 2+, Other (Generalized weakness) Psych/Mental Status: Mental status NL, Mood NL Labs/Xrays Labs Test 01/08/24 13:45 Range/Units White Blood Count 3.6 L 4.4-10.8 10^3/uL Red Blood Count 3.05 L 4.5-5.90 10^6/uL Hemoglobin 9.5 L 13.5-17.5 g/dL Hematocrit 28.6 L 41.0-53.0 % Mean Corpuscular Volume 93.8 80.0-100.0 fL Mean Corpuscular Hemoglobin 31.2 28.0-32.0 pg Mean Corpuscular Hemoglobin Concent 33.2 32.0-36.0 g/dL Red Cell Distribution Width 15.8 H 11.8-14.3 % Platelet Count 118 L 140-450 10^3/uL Mean Platelet Volume 12.0 H 6.9-10.8 fL Neutrophils (%) (Auto) 48.4 37.0-80.0 % Lymphocytes (%) (Auto) 35.4 10.0-50.0 % Monocytes (%) (Auto) 11.4 0.0-12.0 % Eosinophils (%) (Auto) 3.8 0.0-7.0 % Basophils (%) (Auto) 1.0 0.0-2.0 % Neutrophils # (Auto) 1.7 1.6-8.6 10 ^3/uL Lymphocytes # (Auto) 1.3 0.4-5.4 10 ^3/uL Monocytes # (Auto) 0.4 0-1.3 10 ^3/uL Eosinophils # (Auto) 0.1 0-0.8 10 ^3/uL Basophils # (Auto) 0 0-0.2 10 ^3/uL Nucleated Red Blood Cells 0.0 % Prothrombin Time 13.0 H 9.3-11.8 sec Prothrombin Time INR 1.25 H 0.9-1.15 Activated Partial Thromboplast Time 29.6 24.5-34.5 SEC Sodium Level 144 136-145 mmol/L Potassium Level 4.0 3.5-5.1 mmol/L Chloride Level 107 98-107 mmol/L Carbon Dioxide Level 29 20-31 mmol/L Anion Gap 8 5-15 Blood Urea Nitrogen 29 H 9-23 mg/dL Creatinine 7.81 H 0.700-1.30 mg/dL Glomerular Filtration Rate Calc 8 >90 mL/min BUN/Creatinine Ratio 3.7 L 10.0-20.0 Serum Glucose 82 74-106 mg/dL Calcium Level 8.9 8.7-10.4 mg/dL Total Bilirubin 0.7 0.2-1.0 mg/dL Aspartate Amino Transferase (AST) < 8 L 13-40 U/L Alanine Aminotransferase (ALT) 16 7-40 U/L Alkaline Phosphatase 56 46-116 U/L Total Protein 6.5 5.7-8.2 g/dL Albumin 4.2 3.2-4.8 g/dL Assessment/Plan Assessment/Plan Status post carotid endarterectomy Generalized weakness Anemia of chronic disease End-stage renal disease on hemodialysis Plan 1. Admit to intensive care unit 2. Breathing treatment 3. Pain control management 4. IV antibiotic management 5. Management of fluids and electrolytes 6. Consultation for surgical team/hospitalist 7. Diagnostic test chest x-ray 8. DVT prophylaxis-on aspirin 9. Repeat labs CBC, CMP in a.m. 10. Home medication reviewed and reconciled 11. Continue with current medical management 12. Treatment plan discussed with patient and RN. Patient verbalized unde rstanding. Plan discussed with: Patient, Other (RN) My Orders Orders - WEI BRIAN DNP Procedure Category Date Status Time B-Complex W/ C & PHA 01/13/24 Logged Folic Tablet 10:00 Sevelamer (Renagel) PHA 01/12/24 Logged 18:00 Atorvastatin (Lipitor) PHA 01/12/24 Logged 22:00 Aspirin Tablet PHA 01/13/24 Logged 10:00 *[facility] CONS 01/12/24 Transmitted -[place] 14:25 Levetiracetam 500 PHA 01/12/24 Logged Mg/100ml (Levetiraceta 22:00 Famotidine Injection PHA 01/13/24 Logged (Pepcid Injection) 10:00 Ferrous Sulfate Tablet PHA 01/12/24 Logged 18:00 Allergies MACKENZIE 01/12/24 In Process 14:25 Code Status CODE 01/12/24 Transmitted 14:25 Sodium Chloride Lock PHA 01/12/24 Logged (Saline Lock Ns) 22:00 Oxygen Per Hour RT 01/12/24 Transmitted 14:25 Hydrocodone-Acet PHA 01/12/24 Logged 5/325mg Tab (Wanda 14:30 Ondansetron Hcl PHA 01/12/24 Logged (Zofran) 14:30 Docusate Sodium PHA 01/12/24 Logged Capsule (Colace 14:30 Fall Risk Precautions MACKENZIE 01/12/[address] 14:25 Complete Blood Count LAB 01/13/24 Verified 04:00 Comprehensive LAB 01/13/24 Verified Metabolic Panel 04:00 Condition: Serious MACKENZIE 01/12/24 Transmitted 14:25 Acetaminophen Tablet PHA 01/12/24 Logged (Tylenol Tablet) 14:30 Sequential MACKENZIE 01/12/24 In Process Compression Device Problem List: (1) Status post carotid endarterectomy (2) Generalized weakness (3) Anemia of chronic disease (4) End-stage renal disease on hemodialysis Date of Service: Jan 12, 2024 Billing Provider: WEI BRIAN DNP Common Visit Codes: [id number] INP/OBS CARE (HIGH) WEI BRIAN DNP Jan 12, 2024 14:40
[2024-01-12] MEDS ORDERED: ROCURONIUM 10MG/ML 10ML VIAL IV ONE (17:19)
[2024-01-12] MEDS: SODIUM CHLOR 0.9% PF (SALINE LOCK) 10ML VIAL/SYR IV SCH (22:00)
[2024-01-12] MEDS: SEVELAMER 800 MG TAB PO SCH (22:01)
[2024-01-12] MEDS: levETIRAcetam 500 mg/100ml 100 ML IV SCH (22:01)
[2024-01-12] MEDS: ATORVASTATIN 20 MG TAB PO SCH (22:01)
[2024-01-12] MEDS: FERROUS SULFATE 325mg EC TAB PO SCH (22:01)
[2024-01-13] VITALS (14 sets, daily range): BP systolic 118–168; BP diastolic 32–80; PULSE 58–82; RESP 12–18; TEMP 97.9–99.4; O2SAT 91–97
--- NOTE | 2024-01-13 06:31 | DVHPN2 ---
Progress Note Date Seen: Jan 13, 2024 Has the PT tested + for MRSA If YES, has PT been informed?: No Medical Necessity Reason Pt with a Central, PICC or Fol: No Subjective Patient reports: No new complaints Review of Systems: HEENT:Normal, CVS:Normal, RESPIRATORY:Normal, GI:Normal, :Normal, MSK:Normal, NEURO:Normal Objective vital signs Vital Sign Date Time Temp Pulse Resp B/P (MAP) Pulse Ox O2 Delivery O2 Flow Rate FiO2 01/13/24 05:15 97.9 67 15 124/36 (65) 97 97.9 01/12/24 20:37 Room Air* 0 21 Total Intake and Output 01/12/24 01/12/24 01/13/24 15:00 23:00 07:00 Intake Total 100 ml 150 ml Output Total 5 ml 20 ml 25 ml Balance -5 ml 80 ml 125 ml medications Current Medications Medications Dose Ordered Sig/Sharmila Route Start Time Stop Time Status Last Admin Dose Admin Nitroglycerin 0.4 mg Q5MINP PRN SL 01/12/24 10:00 Multivit/Ca Carb/ B Cmplx/FA/Prenat 1 tab DAILY PO 01/13/24 10:00 Sevelamer HCl 800 mg TIDWM PO 01/12/24 18:00 01/12/24 22:01 800 MG Atorvastatin Calcium 40 mg HS PO 01/12/24 22:00 01/12/24 22:01 40 MG Aspirin 81 mg DAILY PO 01/13/24 10:00 Levetiracetam 100 ml @ 400 mls/hr BID IV 01/12/24 22:00 01/12/24 22:01 400 MLS/HR Famotidine 20 mg EOD IV 01/13/24 10:00 Ferrous Sulfate 325 mg BIDWM PO 01/12/24 18:00 01/12/24 22:01 325 MG Sodium Chloride 10 ml Q8HR IV 01/12/24 22:00 01/12/24 22:00 10 ML Acetaminophen/ Hydrocodone Bitart 1 tab Q4HP PRN PO 01/12/24 14:30 Ondansetron HCl 4 mg Q4HP PRN IV 01/12/24 14:30 Docusate Sodium 100 mg BIDPRN PRN PO 01/12/24 14:30 Acetaminophen 650 mg Q6HP PRN PO 01/12/24 14:30 Examination: GENERAL:Normal, HEENT:Normal, NECK:Normal (incision clean dry, intact, soft, Vijay drain 20 ml postoperative (removed now)), LUNGS:Normal, CVS:Normal, ABDOMEN:Normal, MSK:Normal, SKIN:Normal, NEURO:Normal, :Normal laboratory and microbiology Laboratory Tests 01/08/24 13:45 Test 01/08/24 13:45 Range/Units Serum Glucose 82 74-106 mg/dL Problem List/Assessment/Plan Problem List/Assessment/Plan Pod 1 s/p left CEA 01/12/24 oob renal diet pending discharge base on medical evaluation this am. Plan discussed with: Patient My Orders My Orders Orders - ADALBERTO CONWAY Jr., MD Procedure Category Date Status Time Admit ADMIT 01/12/24 Transmitted 09:53 Nitroglycerin [facility] 01/12/24 In Process Sublingual (Ntrostat 10:00 Stat Ekg For Chest [facility] 01/12/24 In Process Pain 09:53 Notify Of Changes [facility] 01/12/24 In Process From Base 09:53 [employer] For [facility] 01/12/24 In Process 24 Hours 09:53 Emergency Dysrhythmia [facility] 01/12/24 In Process Protocol 09:53 Rhythm Strips Once [facility] 01/12/24 In Process Every Shift 09:53 Oxygen By Nasal RT 01/12/24 Transmitted Cannula 09:53 Renal DIET 01/12/24 Transmitted Standard(2gna,3gk,Lopho) Lunch Transfer Orders XFER 01/12/24 Transmitted 16:48 ADALBERTO CONWAY Jr., MD Jan 13, 2024 06:31
[2024-01-13 08:05] LABS: Basophils # (auto) 0 10 ^3/uL (0-0.2); Basophils % (auto) 0.4 % (0.0-2.0); Eosinophils # (auto) 0 10 ^3/uL (0-0.8); Eosinophils % (auto) 0.3 % (0.0-7.0); Hematocrit 27.2 % (41.0-53.0); Lymphocytes % (auto) 13.2 % (10.0-50.0); Mean Corpuscular Hemoglobin 31.3 pg (28.0-32.0); Mean Corpuscular Hgb Conc. 33.1 g/dL (32.0-36.0); Mean Corpuscular Volume 94.7 fL (80.0-100.0); Monocytes # (auto) 0.7 10 ^3/uL (0-1.3); Neutrophils % (auto) 77.1 % (37.0-80.0); Platelet Count (auto) 110 10^3/uL (140-450); Red Blood Cells 2.88 10^6/uL (4.5-5.90); Red Cell Distribution Width 16.1 % (11.8-14.3); White Blood Cell 7.8 10^3/uL (4.4-10.8)
[2024-01-13 08:18] LABS: Albumin 3.9 g/dL (3.2-4.8); Alkaline Phosphatase 51 U/L (46-116); Anion Gap 12 (5-15); Aspartate Aminotransferase < 8 U/L (13-40); BUN/Creatinine Ratio 5.9 (10.0-20.0); Blood Urea Nitrogen 73 mg/dL (9-23); Calcium 8.3 mg/dL (8.7-10.4); Carbon Dioxide 24 mmol/L (20-31); Chloride 107 mmol/L (98-107); Glucose 109 mg/dL (74-106); Potassium 4.3 mmol/L (3.5-5.1); Sodium 143 mmol/L (136-145)
[2024-01-13 08:19] LABS: Bilirubin, Total 0.4 mg/dL (0.2-1.0)
[2024-01-13 08:23] LABS: Alanine Aminotransferase < 9 U/L (7-40)
[2024-01-13] MEDS: ASPirin 81 mg TAB PO SCH (10:33)
[2024-01-13] MEDS: B-COMPLEX W/ C & FOLIC ACID(NEPHROVITE TAB) PO SCH (10:33)
[2024-01-13] MEDS: FAMOTIDINE (10MG/ML) 2ML VL IV SCH (10:34)
--- NOTE | 2024-01-13 10:59 | DVHINCON2 ---
Date of service: Jan 13, 2024 Referring Physician Edil Damico nurse practitioner Reason for Consultation End-stage renal disease to manage hemodialysis History of Present Illness Patient is a 48-year-old male with past medical history significant ESRD on hemodialysis every Friday and Friday, HTN, CVA, Thyroid disease, and Peripheral arterial disease who was admitted by surgery status post left carotid endarterectomy. Nephrology is consulted to manage hemodialysis since patient missed hemodialysis yesterday Past Medical History ESRD, HTN, CVA, Thyroid disease, Peripheral arterial disease Past Surgical History Right hand finger amputation Right below-knee amputation Allergies: Coded Allergies: NO KNOWN ALLERGIES (Unverified , 11/26/19) Home Meds Reported Medications Sevelamer Carbonate (Renvela) 800 Mg Tab, 2 TAB PO TID, TAB 01/08/24 Levetiracetam (Keppra) 500 Mg Tab, 500 MG PO BID, TAB 01/08/24 Atorvastatin Calcium (ATORVASTATIN CALCIUM) 80 Mg Tab, 80 MG PO HS, TAB 01/08/24 Ezetimibe (Ezetimibe) 10 Mg Tab, 10 MG PO DAILY, TAB 01/08/24 Ferrous Sulfate (FERROUS SULFATE) 325 Mg Tb, 325 MG PO DAILY, TAB 01/08/24 Nifedipine (Nifedipine ER) 30 Mg Tab, 30 MG PO DAILY, TAB 01/08/24 Ticagrelor Base (BRILINTA) 90 Mg Tab, 90 MG PO BID for new cardiac stent, TAB 11/11/23 Aspirin (ASPIRIN 81) 81 Mg Tab, 1 TAB PO DAILY for HEART ATTACK PREVENTION 05/11/20 Carvedilol (Carvedilol) 25 Mg Tab, 1 TAB PO BID for HYPERTENSION 11/26/19 Minoxidil (Loniten) 2.5 Mg Tb, 1 TAB PO BID PRN for SBP>150, 1 Refill PRN BLOOD PRESSURE >150/80 11/26/19 Discontinued Reported Medications Calcitriol (Calcitriol) 0.5 Mcg Cap, 1 CAP PO BID for SUPPLEMENT 05/10/20 Calcium Carbonate (Calcium Carbonate) 600 Mg Tab, 2 TAB PO BID for SUPPLEMENT 05/10/20 Ferric Citrate (Auryxia) 210 Mg Tab, 3 TAB PO TIDWM for SUPPLEMENT 11/26/19 Clonidine Hydrochloride (Clonidine Hcl) 0.2 Mg Tab, 1 TAB PO BID for HYPERTENSION 11/26/19 Current Medications Current Medications Medications (Trade) Dose Ordered Sig/Sharmila Route PRN Reason Start Time Stop Time Status Last Admin Multivit/Ca Carb/ B Cmplx/FA/Prenat (Nephro-Luis Armando Tablet) 1 tab DAILY PO 01/13/24 10:00 01/13/24 10:33 Sevelamer HCl (Renagel) 800 mg TIDWM PO 01/12/24 18:00 01/13/24 10:34 Atorvastatin Calcium (Lipitor) 40 mg HS PO 01/12/24 22:00 01/12/24 22:01 Aspirin 81 mg DAILY PO 01/13/24 10:00 01/13/24 10:33 Levetiracetam 100 ml @ 400 mls/hr BID IV 01/12/24 22:00 01/12/24 22:01 Famotidine (Pepcid Injection) 20 mg EOD IV 01/13/24 10:00 01/13/24 10:34 Ferrous Sulfate 325 mg BIDWM PO 01/12/24 18:00 01/13/24 10:34 Sodium Chloride (Saline Lock Ns) 10 ml Q8HR IV 01/12/24 22:00 01/12/24 22:00 Acetaminophen/ Hydrocodone Bitart ([place] 5/325MG Tab) 1 tab Q4HP PRN PO MODERATE PAIN (4-6 PAIN SCALE) 01/12/24 14:30 Ondansetron HCl (Zofran) 4 mg Q4HP PRN IV NAUSEA / VOMITING 01/12/24 14:30 Docusate Sodium (Colace Capsule) 100 mg BIDPRN PRN PO FOR CONSTIPATION 01/12/24 14:30 Acetaminophen (Tylenol Tablet) 650 mg Q6HP PRN PO PAIN SCALE 1-3 OR TEMP>100.4 01/12/24 14:30 Family History: FH: carotid endarterectomy Hypertension G8 MOTHER G8 FATHER Review of Systems All 12 item review of systems reviewed with the patient nonsignificant except what is mentioned in the history of present illness H&P Exam Vital Signs/I&O Vital Sign Date Time Temp Pulse Resp B/P (MAP) Pulse Ox O2 Delivery O2 Flow Rate FiO2 01/13/24 09:00 98.4 64 18 144/69 (94) 95 98.4 01/12/24 20:37 Room Air* 0 21 Intake and Output 01/12/24 01/13/24 19:00 07:00 Intake Total 250 ml Output Total 25 ml 40 ml Balance -25 ml 210 ml Intake Oral 150 ml IV Total 100 ml Output Drainage Total 25 ml 40 ml Physical Exam Patient is awake but forgetful Lungs clear to auscultation bilaterally Cardiac exam regular rate and rhythm GI soft nontender was normal Extremity right below-knee amputation Neuro patient is awake and alert Labs/Diagnostic Data Labs/Diagnostic Data Laboratory Tests Test 01/13/24 07:30 01/08/24 13:45 Range/Units White Blood Count 7.8 # 3.6 L 4.4-10.8 10^3/uL Red Blood Count 2.88 L 3.05 L 4.5-5.90 10^6/uL Hemoglobin 9.0 L 9.5 L 13.5-17.5 g/dL Hematocrit 27.2 L 28.6 L 41.0-53.0 % Mean Corpuscular Volume 94.7 93.8 80.0-100.0 fL Mean Corpuscular Hemoglobin 31.3 31.2 28.0-32.0 pg Mean Corpuscular Hemoglobin Concent 33.1 33.2 32.0-36.0 g/dL Red Cell Distribution Width 16.1 H 15.8 H 11.8-14.3 % Platelet Count 110 L 118 L 140-450 10^3/uL Mean Platelet Volume 12.0 H 12.0 H 6.9-10.8 fL Neutrophils (%) (Auto) 77.1 48.4 37.0-80.0 % Lymphocytes (%) (Auto) 13.2 35.4 10.0-50.0 % Monocytes (%) (Auto) 9.0 11.4 0.0-12.0 % Eosinophils (%) (Auto) 0.3 3.8 0.0-7.0 % Basophils (%) (Auto) 0.4 1.0 0.0-2.0 % Neutrophils # (Auto) 6.0 1.7 1.6-8.6 10 ^3/uL Lymphocytes # (Auto) 1.0 1.3 0.4-5.4 10 ^3/uL Monocytes # (Auto) 0.7 0.4 0-1.3 10 ^3/uL Eosinophils # (Auto) 0 0.1 0-0.8 10 ^3/uL Basophils # (Auto) 0 0 0-0.2 10 ^3/uL Nucleated Red Blood Cells 0.0 0.0 % Sodium Level 143 144 136-145 mmol/L Potassium Level 4.3 4.0 3.5-5.1 mmol/L Chloride Level 107 107 98-107 mmol/L Carbon Dioxide Level 24 29 20-31 mmol/L Anion Gap 12 8 5-15 Blood Urea Nitrogen 73 H 29 H 9-23 mg/dL Creatinine 12.42 #*H 7.81 H 0.700-1.30 mg/dL Glomerular Filtration Rate Calc 5 8 >90 mL/min BUN/Creatinine Ratio 5.9 L 3.7 L 10.0-20.0 Serum Glucose 109 H 82 74-106 mg/dL Calcium Level 8.3 L 8.9 8.7-10.4 mg/dL Total Bilirubin 0.4 0.7 0.2-1.0 mg/dL Aspartate Amino Transferase (AST) < 8 L < 8 L 13-40 U/L Alanine Aminotransferase (ALT) < 9 16 7-40 U/L Alkaline Phosphatase 51 56 46-116 U/L Total Protein 6.0 6.5 5.7-8.2 g/dL Albumin 3.9 4.2 3.2-4.8 g/dL Prothrombin Time 13.0 H 9.3-11.8 sec Prothrombin Time INR 1.25 H 0.9-1.15 Activated Partial Thromboplast Time 29.6 24.5-34.5 SEC Assessment End-stage renal disease missed hemodialysis Peripheral arterial disease Status post left carotid endarterectomy 01/11 Hypertension CVA Right below-knee amputation Anemia of chronic kidney disease Recommendations Hemodialysis today for fluid and electrolyte management Epogen 47775 IV post hemodialysis Resume home medication Fluid restrictions Renal diet We will continue to follow Patient seen and examined by myself. I discussed my plan of care with the patient and primary nurse at the bedside I would like to thank Edil for the consult, will follow up Plan discussed with: Patient CHEVY MAY MD Jan 13, 2024 10:59
[2024-01-13 11:54] LABS: Hepatitis B Surface Antigen Negative (Negative)
[2024-01-13 12:16] LABS: Hepatitis C Antibody Negative (Negative)
--- NOTE | 2024-01-13 13:41 | DVHPN2 ---
Subjective Patient denies any symptoms. Reviewed: Care Plan, H&P, Labs, Medications Changes from previous H/P or p: No Changes General: Per HPI Eyes: No Pain, No Vision change, No Conjunctivae inflammation, No Eyelid inflammation, No Other, No Redness ENT: No Ear pain, No Ear discharge, No Nose pain, No Nose discharge, No Nose congestion, No Mouth pain, No Mouth swelling, No Throat pain, No Throat swelling, No Other Cardiovascular: No Chest Pain, No Palpitations, No Orthopnea, No Paroxysmal Noc. Dyspnea, No Edema, No Lt Headedness, No Other Respiratory: No Cough, No Dry, No Shortness of breath, No SOB with excertion, No Wheezing, No Hemoptysis, No Pleuritic Pain, No Sputum, No Other Gastrointestinal: No Nausea, No Vomiting, No Abdominal Pain, No Diarrhea, No Constipation, No Melena, No Hematochezia, No Other Genitourinary: No Dysuria, No Frequency, No Incontinence, No Hematuria, No Retention, No Other Musculoskeletal: other (Right BKA, right 4 finger amputation.); No neck pain, No shoulder pain, No arm pain, No back pain, No hand pain, No leg pain, No foot pain Skin: No Rash, No Lesions, No Jaundice, No Bruising; Other (Left neck surgical wound with NIKO.) Objective Vitals Vital Signs Date Time Temp Pulse Resp B/P (MAP) Pulse Ox O2 Delivery O2 Flow Rate FiO2 01/13/24 09:00 98.4 64 18 144/69 (94) 95 98.4 01/12/24 20:37 Room Air* 0 21 Intake/Output Intake and Output 01/13/24 07:00 Intake Total 250 ml Output Total 65 ml Balance 185 ml Intake Oral 150 ml IV Total 100 ml Output Drainage Total 65 ml General Appearance: Alert, Oriented X3, Cooperative, No acute distress HEENT: Atraumatic, PERRLA Neck: Other (Incision to left neck dry and intact) Lungs: Clear to auscultation Cardiovascular: Normal S1, Normal S2 Genitourinary: No Apparent Abnormalities Musculoskeletal: Weak motor strength RUE Extremities: No clubbing, No cyanosis Neuro: Normal gait, Other ([place] area) Psych/Mental Status: Mental status NL, Mood NL Medications Current Medications Medications Dose Ordered Sig/Sharmila Route Start Time Stop Time Status Last Admin Dose Admin Nitroglycerin 0.4 mg Q5MINP PRN SL 01/12/24 10:00 Multivit/Ca Carb/ B Cmplx/FA/Prenat 1 tab DAILY PO 01/13/24 10:00 01/13/24 10:33 1 TAB Sevelamer HCl 800 mg TIDWM PO 01/12/24 18:00 01/13/24 13:18 800 MG Atorvastatin Calcium 40 mg HS PO 01/12/24 22:00 01/12/24 22:01 40 MG Aspirin 81 mg DAILY PO 01/13/24 10:00 01/13/24 10:33 81 MG Levetiracetam 100 ml @ 400 mls/hr BID IV 01/12/24 22:00 01/13/24 13:09 400 MLS/HR Famotidine 20 mg EOD IV 01/13/24 10:00 01/13/24 10:34 20 MG Ferrous Sulfate 325 mg BIDWM PO 01/12/24 18:00 01/13/24 10:34 325 MG Sodium Chloride 10 ml Q8HR IV 01/12/24 22:00 01/12/24 22:00 10 ML Acetaminophen/ Hydrocodone Bitart 1 tab Q4HP PRN PO 01/12/24 14:30 Ondansetron HCl 4 mg Q4HP PRN IV 01/12/24 14:30 Docusate Sodium 100 mg BIDPRN PRN PO 01/12/24 14:30 Acetaminophen 650 mg Q6HP PRN PO 01/12/24 14:30 Laboratory Results Laboratory Tests 01/13/24 07:30 Chemistry Test 01/13/24 07:30 Albumin 3.9 g/dL (3.2-4.8) Calcium Level 8.3 mg/dL (8.7-10.4) L Phosphorus Level 2.8 mg/dL (2.4-5.1) Total Protein 6.0 g/dL (5.7-8.2) LFT Test 01/13/24 07:30 Alanine Aminotransferase (ALT) < 9 U/L (7-40) Alkaline Phosphatase 51 U/L (46-116) Aspartate Amino Transferase (AST) < 8 U/L (13-40) L Total Bilirubin 0.4 mg/dL (0.2-1.0) Labs and/or images reviewed: Labs reviewed by me, Image(s) reviewed by me Assessment/Plan Assessment/Plan Impression: -critical left carotid stenosis, status post left carotid endarterectomy, postop day one -ESRD with hemodialysis -primary hypertension -history of CVA -right BKA -peripheral arterial disease Plan: -surgical recommendations reviewed. -nephrology consultation, plans for HD today -continue antihypertensives -pain management -repeat labs in a.m. -reassess for DC planning tomorrow Total time spent with patient discussing and formulating plan of care: 35 minutes. This medical document was created using an electronic medical record system with [employer] dictation system. Although this document has been carefully reviewed, there may still be some phonetic and typographical errors. These areas are purely typographical due to imperfections of the software programs, and do not reflect any compromise in the patient's medical care. Plan discussed with: Patient, Other (RN) Date of Service: Jan 13, 2024 Billing Provider: CORINE ALBA NP Common Visit Codes: [id number] INP/OBS CARE(HIGH) CORINE ALBA NP Jan 13, 2024 13:41
[2024-01-13] MEDS ORDERED: ALBUMIN 25% 100 ML IV PRN (14:45)
[2024-01-13] MEDS: SEVELAMER 800 MG TAB PO SCH (18:44)
[2024-01-13] MEDS: SODIUM CHL 0.9% 1000 ML BAG XX ONE (20:10)
[2024-01-13] MEDS: levETIRAcetam 500 MG TAB PO SCH (23:35)
[2024-01-13] MEDS: ATORVASTATIN 20 MG TAB PO SCH (23:35)
[2024-01-13] MEDS: CARVEDILOL 12.5 MG TAB PO SCH (23:36)
[2024-01-13] MEDS: EPOETIN ALFA-EPBX 10,000 UNIT/1ML VIAL SC ONE (23:37)
[2024-01-14] VITALS (8 sets, daily range): BP systolic 126–138; BP diastolic 59–71; PULSE 62–86; RESP 16–18; TEMP 36.8; O2SAT 94–96
[2024-01-14] MEDS: EZETIMIBE 10 MG TAB PO SCH (10:11)
[2024-01-14 10:32] LABS: Chloride 105 mmol/L (98-107); Potassium 4.2 mmol/L (3.5-5.1); Sodium 143 mmol/L (136-145)
[2024-01-14 10:33] LABS: Anion Gap 10 (5-15); Calcium 8.3 mg/dL (8.7-10.4); Carbon Dioxide 28 mmol/L (20-31)
[2024-01-14 10:38] LABS: BUN/Creatinine Ratio 4.7 (10.0-20.0); Glucose 139 mg/dL (74-106)
[2024-01-14 10:39] LABS: Blood Urea Nitrogen 46 mg/dL (9-23)
--- NOTE | 2024-01-14 12:04 | DVHPN2 ---
Progress Note Date Seen: Jan 14, 2024 Has the PT tested + for MRSA If YES, has PT been informed?: No Medical Necessity Reason Pt with a Central, PICC or Fol: No Subjective Patient reports: No new complaints Other Systems: Patient seen and examined by myself today in follow-up Objective vital signs Vital Sign Date Time Temp Pulse Resp B/P (MAP) Pulse Ox O2 Delivery O2 Flow Rate FiO2 01/14/24 10:12 68 135/65 01/14/24 08:10 18 94 Room Air* 0 21 01/14/24 08:03 98.3 98.3 Total Intake and Output 01/13/24 01/13/24 01/14/24 15:00 23:00 07:00 Intake Total 460 ml 600 ml 295 ml Output Total 0 ml Balance 460 ml 600 ml 295 ml medications Current Medications Medications Dose Ordered Sig/Sharmila Route Start Time Stop Time Status Last Admin Dose Admin Nitroglycerin 0.4 mg Q5MINP PRN SL 01/12/24 10:00 Multivit/Ca Carb/ B Cmplx/FA/Prenat 1 tab DAILY PO 01/13/24 10:00 01/14/24 10:11 1 TAB Aspirin 81 mg DAILY PO 01/13/24 10:00 01/14/24 10:11 81 MG Famotidine 20 mg EOD IV 01/13/24 10:00 01/14/24 10:10 20 MG Ferrous Sulfate 325 mg BIDWM PO 01/12/24 18:00 01/14/24 10:10 325 MG Sodium Chloride 10 ml Q8HR IV 01/12/24 22:00 01/14/24 06:12 10 ML Acetaminophen/ Hydrocodone Bitart 1 tab Q4HP PRN PO 01/12/24 14:30 Ondansetron HCl 4 mg Q4HP PRN IV 01/12/24 14:30 Docusate Sodium 100 mg BIDPRN PRN PO 01/12/24 14:30 Acetaminophen 650 mg Q6HP PRN PO 01/12/24 14:30 EZETIMIBE 10 mg DAILY PO 01/14/24 10:00 01/14/24 10:11 10 MG Levetiracetam 500 mg BID PO 01/13/24 22:00 01/14/24 10:10 500 MG Atorvastatin Calcium 80 mg HS PO 01/13/24 22:00 01/13/24 23:35 80 MG Carvedilol 25 mg BID PO 01/13/24 22:00 01/14/24 10:12 25 MG Sevelamer HCl 1,600 mg TIDWM PO 01/13/24 18:00 01/14/24 10:10 1,600 MG Albumin Human 100 ml @ 100 mls/hr Q15MP PRN IV 01/13/24 14:45 01/15/24 10:59 Examination: LUNGS:Normal, CVS:Normal, MSK:Normal laboratory and microbiology Laboratory Tests 01/14/24 09:55 01/13/24 07:30 Test 01/14/24 09:55 Range/Units Serum Glucose 139 H 74-106 mg/dL Problem List/Assessment/Plan Problem List/Assessment/Plan End-stage renal disease missed hemodialysis, [place] patient hemodialysis Q Friday and Friday Peripheral arterial disease Status post left carotid endarterectomy 01/11 Hypertension CVA Right below-knee amputation Anemia of chronic kidney disease Recommendations Hemodialysis tomorrow Epogen 11883 IV post hemodialysis Resume home medication Fluid restrictions Renal diet Patient is cleared for discharge from nephrology , follow-up outpatient hemodialysis schedule at [facility] dialysis Plan discussed with: Patient My Orders My Orders Orders - CHEVY MAY MD Procedure Category Date Status Time Albumin 25% (Albutein) PHA 01/13/24 In Process 14:45 CHEVY MAY MD Jan 14, 2024 12:04
[2024-01-14] MEDS ORDERED: CEPH500C PO (14:17)
--- NOTE | 2024-01-14 14:21 | DVHDS2 ---
Discharge Summary Date of Admission Jan 12, 2024 at 09:53 Date of Discharge: Jan 14, 2024 Admitting Diagnosis Left carotid stenosis Labs/Diagnostic Data: Laboratory Results Test 01/14/24 09:55 01/13/24 07:30 01/08/24 13:45 Sodium Level 143 mmol/L (136-145) Potassium Level 4.2 mmol/L (3.5-5.1) Chloride Level 105 mmol/L (98-107) Carbon Dioxide Level 28 mmol/L (20-31) Anion Gap 10 (5-15) Blood Urea Nitrogen 46 mg/dL (9-23) Creatinine 9.71 mg/dL (0.700-1.30) Glomerular Filtration Rate Calc 6 mL/min (>90) BUN/Creatinine Ratio 4.7 (10.0-20.0) Serum Glucose 139 mg/dL (74-106) Calcium Level 8.3 mg/dL (8.7-10.4) White Blood Count 7.8 10^3/uL (4.4-10.8) Red Blood Count 2.88 10^6/uL (4.5-5.90) Hemoglobin 9.0 g/dL (13.5-17.5) Hematocrit 27.2 % (41.0-53.0) Mean Corpuscular Volume 94.7 fL (80.0-100.0) Mean Corpuscular Hemoglobin 31.3 pg (28.0-32.0) Mean Corpuscular Hemoglobin Concent 33.1 g/dL (32.0-36.0) Red Cell Distribution Width 16.1 % (11.8-14.3) Platelet Count 110 10^3/uL (140-450) Mean Platelet Volume 12.0 fL (6.9-10.8) Neutrophils (%) (Auto) 77.1 % (37.0-80.0) Lymphocytes (%) (Auto) 13.2 % (10.0-50.0) Monocytes (%) (Auto) 9.0 % (0.0-12.0) Eosinophils (%) (Auto) 0.3 % (0.0-7.0) Basophils (%) (Auto) 0.4 % (0.0-2.0) Neutrophils # (Auto) 6.0 10 ^3/uL (1.6-8.6) Lymphocytes # (Auto) 1.0 10 ^3/uL (0.4-5.4) Monocytes # (Auto) 0.7 10 ^3/uL (0-1.3) Eosinophils # (Auto) 0 10 ^3/uL (0-0.8) Basophils # (Auto) 0 10 ^3/uL (0-0.2) Nucleated Red Blood Cells 0.0 % Phosphorus Level 2.8 mg/dL (2.4-5.1) Total Bilirubin 0.4 mg/dL (0.2-1.0) Aspartate Amino Transferase (AST) < 8 U/L (13-40) Alanine Aminotransferase (ALT) < 9 U/L (7-40) Alkaline Phosphatase 51 U/L (46-116) Total Protein 6.0 g/dL (5.7-8.2) Albumin 3.9 g/dL (3.2-4.8) Vitamin D 25-Hydroxy 56.0 ng/mL (30.0-100) Parathyroid Hormone (Intact) 185.1 pg/mL (18.4-80.1) Hepatitis B Surface Antigen Negative (Negative) Hepatitis C Antibody Negative (Negative) Prothrombin Time 13.0 sec (9.3-11.8) Prothrombin Time INR 1.25 (0.9-1.15) Activated Partial Thromboplast Time 29.6 SEC (24.5-34.5) Other Laboratory Tests 01/14/24 09:55 01/13/24 07:30 Brief Hx & Hospital Course: History of Present Illness The patient is a 48 years old male with multiple past medical history including end-stage renal disease on hemodialysis, thyroid disease, peripheral artery disease, and hypertension who presented to [facility] ED for evaluation of left critical common carotid artery and ICA stenosis. Patient was seen and evaluated by vascular team for surgery. A heavy plaque burden was identified in the distal common carotid artery and proximal internal carotid artery, this was removed and sent off for specimen. A Lr shunt was then inserted to restore flow. At this point in time the lumen of the common and internal carotid arteries were then further evaluated, all fibrinous material and plaque were removed. The vessel was flushed with heparinized saline, there were no debris left behind. The patient awoke without any difficulty and was taken to PACU in stable condition. Patient was seen and evaluated in PACU, laboratory data shows WBC 3.6, hemoglobin 9.5, hematocrit 28.6, platelets 118, sodium 144, potassium 4.0, BUN 29, creatinine 7.81, glucose 82, blood pressure 122/48, heart rate 54, temperature 97.4 F, O2 saturation 98% on oxygen. On my assessment, patient denied chest pain, no headache, no dizziness, no diaphoresis, no blurry vision, no shortness of breath, no diarrhea, no nausea, no vomiting, no fever, no chills. Patient was admitted for further evaluation and medical management. Course of hospitalization: Patient remained hemodynamically stable postoperatively. Patient receives hemodialysis treatment yesterday without any changes or spikes in blood pressure. Patient states that clinically he feels better today. He will be discharged home, already obtaining clearance by surgery. He will continue with established HD chair time. Patient will also follow up with vascular surgery in one week. The patient will be discharged home with Keflex 500 mg p.o. t.i.d. for the next five days. All questions answered. Physical exam General: Alert and Oriented x3. No acute distress. Well-nourished. General presentation Eyes: EOMI. Anicteric. HENT: Moist mucous membranes. Carotid surgery site dry and intact Lungs: Clear to auscultation bilaterally. No accessory muscle use. Cardiovascular: Regular rate and rhythm. No murmur. No JVD. Abdomen: Soft, non-tender and non-distended. No palpable masses. Extremities: No edema. Non-tender. Right BKA Skin: No rashes or lesions. Warm. Neurologic: No focal neurological deficits. CN II-XII grossly intact, but not individually tested. Psychiatric: Cooperative. Appropriate mood and affect. Total time spent with patient discussing and formulating plan of care: 35 minutes. This medical document was created using an electronic medical record system with [employer] dictation system. Although this document has been carefully reviewed, there may still be some phonetic and typographical errors. These areas are purely typographical due to imperfections of the software programs, and do not reflect any compromise in the patient's medical care. Consults/Reason for consult Vascular surgery: Critical carotid stenosis Nephrology: Hemodialysis Operations or Procedures 01/12/2024: Left Carotid endarterectomy Condition at Discharge: Good Final Diagnosis/Problems List Left carotid stenosis, status post carotid endarterectomy Secondary Diagnosis: -ESRD with hemodialysis -primary hypertension -history of CVA -right BKA -peripheral arterial disease Discharge Disposition: Home Discharge Instruct/Medications Diet: Consistent carbohydrate, Cardiac 2g Na,low cholest, Renal Activity: No Restrictions, As Tolerated Follow Up/Referral: Follow up with vascular surgery, Dr. Vidal, in one week Continue hemodialysis chair time appointments Medications: Keflex 500 mg p.o. t.i.d. x5 days Continue all previous home medications including antiplatelet medication 36 Discharge Statement: "Patient was advised to return to the ER or call 911 if any headaches, dizziness, shortness of breath, chest pain, abdominal pain, bleeding, fevers, or worsening of medical condition. Patient was counseled about treatment plan, medications, possible side effects, patientverbalized understanding. All questions were answered to the best of my ability. This discharge took greater then 30 minutes in planning, reviewing documentation, counseling the patient, and discussing with other team members." ASSESSMENT ASSESSMENT Assessment Left carotid stenosis, status post carotid endarterectomy Date of Service: Jan 14, 2024 Billing Provider: CORINE ALBA NP Common Visit Codes: 25490-BVF/OBS DISCH DAY >30min CORINE ALBA NP Jan 14, 2024 14:21
[2024-01-15] MEDS ORDERED: SODIUM CHL 0.9% 1000 ML BAG XX ONE (07:00)
[2024-01-15] MEDS ORDERED: EPOETIN ALFA-EPBX 10,000 UNIT/1ML VIAL SC ONE (21:00)
== END 2024-01-14 17:20 | disposition home or self-care (01) | DRG 37 ==
LOC: SUR 05:55 → TELE 09:53 → CATH ICU 19:19 → TELE-EAST 01-13 05:18
PROVIDERS: ADMIT Surgery Vascular Surgery; ATTEND Nurse Practitioner Acute Care
PROC: 03CL0ZZ Extirpation of Matter from Left Internal Carotid Artery, Open Approach (ICD-10-PCS; 2024-01-12)
PROC: 03UL0KZ Supplement Left Internal Carotid Artery with Nonautologous Tissue Substitute, Open Approach (ICD-10-PCS; 2024-01-12)
PROC: 03CJ0ZZ Extirpation of Matter from Left Common Carotid Artery, Open Approach (ICD-10-PCS; principal; 2024-01-12 07:15)
PROC: 5A1D70Z Performance of Urinary Filtration, Intermittent, Less than 6 Hours Per Day (ICD-10-PCS; 2024-01-13)
DX: I65.22 Occlusion and stenosis of left carotid artery (principal); N18.6 End stage renal disease; I12.0 Hypertensive chronic kidney disease with stage 5 chronic kidney disease or end stage renal disease; I73.9 Peripheral vascular disease, unspecified; E07.9 Disorder of thyroid, unspecified; D63.1 Anemia in chronic kidney disease; Z89.511 Acquired absence of right leg below knee; Z99.2 Dependence on renal dialysis; Z86.73 Personal history of transient ischemic attack (TIA), and cerebral infarction without residual deficits; Z82.49 Family history of ischemic heart disease and other diseases of the circulatory system; Z79.82 Long term (current) use of aspirin; Z79.899 Other long term (current) drug therapy
CPT/HCPCS: 36415; 80048; 80053; 82306; 83970; 84100; 85025; 85610; 85730; 86803; 86850; 86900; 86901; 87340; 90935; G0378; J2003; J3490

== ENCOUNTER 2024-04-26 06:05 | Inpatient (IN) | payer MEDICARE, MEDICAID ==
[2024-03-25 11:13] LABS: Basophils # (auto) 0 10 ^3/uL (0-0.2); Basophils % (auto) 0.8 % (0.0-2.0); Eosinophils # (auto) 0.2 10 ^3/uL (0-0.8); Eosinophils % (auto) 4.1 % (0.0-7.0); Lymphocytes # (auto) 1.4 10 ^3/uL (0.4-5.4); Mean Corpuscular Hemoglobin 29.7 pg (28.0-32.0); Mean Corpuscular Hgb Conc. 32.4 g/dL (32.0-36.0); Mean Corpuscular Volume 91.6 fL (80.0-100.0); Monocytes # (auto) 0.5 10 ^3/uL (0-1.3); Monocytes % (auto) 10.8 % (0.0-12.0); Neutrophils # (auto) 2.1 10 ^3/uL (1.6-8.6); Neutrophils % (auto) 50.3 % (37.0-80.0); Nucleated Red Blood Cells % 0.1 %; Platelet Count (auto) 78 10^3/uL (140-450); Red Blood Cells 4.04 10^6/uL (4.5-5.90); Red Cell Distribution Width 14.9 % (11.8-14.3); White Blood Cell 4.2 10^3/uL (4.4-10.8)
[2024-03-25 11:34] LABS: INR 1.19 (0.9-1.15); Partial Thromboplastin Time 29.3 SEC (24.5-34.5); Prothrombin Time 12.4 sec (9.3-11.8)
[2024-03-25 11:49] LABS: Alanine Aminotransferase 20 U/L (7-40); Albumin 4.6 g/dL (3.2-4.8); Alkaline Phosphatase 58 U/L (46-116); Anion Gap 11 (5-15); BUN/Creatinine Ratio 4.9 (10.0-20.0); Bilirubin, Total 0.5 mg/dL (0.2-1.0); Carbon Dioxide 27 mmol/L (20-31); Chloride 103 mmol/L (98-107); Glucose 78 mg/dL (74-106); Potassium 4.5 mmol/L (3.5-5.1); Sodium 141 mmol/L (136-145); Total Protein 6.9 g/dL (5.7-8.2)
[2024-03-25 11:52] LABS: Aspartate Aminotransferase 12 U/L (13-40); Blood Urea Nitrogen 39 mg/dL (9-23); Calcium 8.4 mg/dL (8.7-10.4)
[~2024-04-26] VITALS: Ht 170.2 cm; Wt 69.3 kg
[2024-04-26] VITALS (35 sets, daily range): BP systolic 114–184; BP diastolic 30–66; PULSE 53–70; RESP 9–15; TEMP 97.5–98.2; O2SAT 94–100
[~2024-04-26 06:05] MED LIST changes: +CHOL20004 PO; -EZET-10 PO; +EZET10TA22 PO; +[UNRECOGNIZED DRUG - CODE] PO
[2024-04-26] MEDS: LIDOCAINE 1% (LOCAL ANESTH.) PF 5ml SDV ONE (06:07)
[2024-04-26] MEDS: LIDOCAINE 2% JELLY 11ml (GLYDO) ONE (06:22)
[2024-04-26] MEDS: SUCCINYLCHOLINE CHLORIDE 20 MG/ML 10ML VIAL IV ONE (06:22)
[2024-04-26] MEDS ORDERED: fentaNYL CITRATE 100 MCG/2 ML VL ONE (06:26)
[2024-04-26] MEDS ORDERED: MIDAZOLAM HCL 2MG/2ML 2ml VIAL (1mg/ml) ONE (06:27)
[2024-04-26] MEDS ORDERED: ETOMIDATE (2MG/ML) 20ML VIAL IV ONE (07:03)
[2024-04-26] MEDS ORDERED: DexAMETHasone SOD PHOS 10MG/1ML VIAL INJ ONE (07:03)
[2024-04-26] MEDS ORDERED: ONDANSETRON HCL 4 MG/2 ML VIAL ONE (07:03)
[2024-04-26 07:11] LABS: Basophils # (auto) 0 10 ^3/uL (0-0.2); Basophils % (auto) 0.7 % (0.0-2.0); Eosinophils # (auto) 0.2 10 ^3/uL (0-0.8); Eosinophils % (auto) 4.3 % (0.0-7.0); Hematocrit 34.1 % (41.0-53.0); Hemoglobin 11.2 g/dL (13.5-17.5); Lymphocytes # (auto) 1.4 10 ^3/uL (0.4-5.4); Lymphocytes % (auto) 26.6 % (10.0-50.0); Mean Corpuscular Hemoglobin 29.9 pg (28.0-32.0); Mean Corpuscular Hgb Conc. 32.9 g/dL (32.0-36.0); Mean Corpuscular Volume 90.9 fL (80.0-100.0); Monocytes # (auto) 0.4 10 ^3/uL (0-1.3); Monocytes % (auto) 8.8 % (0.0-12.0); Neutrophils % (auto) 59.6 % (37.0-80.0); Platelet Count (auto) 115 10^3/uL (140-450); Red Blood Cells 3.75 10^6/uL (4.5-5.90); Red Cell Distribution Width 16.2 % (11.8-14.3); White Blood Cell 5.1 10^3/uL (4.4-10.8)
[2024-04-26 07:20] LABS: Chloride 103 mmol/L (98-107); Potassium 4.7 mmol/L (3.5-5.1); Sodium 141 mmol/L (136-145)
[2024-04-26 07:21] LABS: Anion Gap 13 (5-15); Carbon Dioxide 25 mmol/L (20-31)
[2024-04-26 07:22] LABS: Calcium 9.3 mg/dL (8.7-10.4)
[2024-04-26 07:24] LABS: INR 1.09 (0.9-1.15); Partial Thromboplastin Time 28.4 SEC (24.5-34.5); Prothrombin Time 11.5 sec (9.3-11.8)
[2024-04-26 07:26] LABS: BUN/Creatinine Ratio 7.1 (10.0-20.0); Glucose 86 mg/dL (74-106)
[2024-04-26] MEDS ORDERED: ROCURONIUM 10MG/ML 10ML VIAL IV ONE (07:38)
[2024-04-26] MEDS: ceFAZolin 2 GM/D5W100ml 100 ML IV ONE (07:47)
[2024-04-26 08:28] LABS: Blood Urea Nitrogen 83 mg/dL (9-23)
[2024-04-26] MEDS: PROTAMINE SULFATE 10 MG/ML 5ML VIAL IV ONE (08:38)
[2024-04-26] MEDS ORDERED: SUGAMMADEX 200mg/2ml Vial (100MG/ML) IV ONE (08:55)
--- NOTE | 2024-04-26 10:30 | POSTOP ---
Post-Operative Note Post-Operative Note Preop Diagnosis Right carotid artery stenosis Postop Diagnosis: Same Operation performed Right carotid endarterectomy Specimen Right carotid plaque Anesthesia: General Anesthesiologist: Samara Blood Loss(fluid mgmt) 150 mL Surgeon Sancho Vidal MD Date 04/26/24 Time 10:29 SANCHO VIDAL Jr., MD Apr 26, 2024 10:30
--- NOTE | 2024-04-26 10:35 | DVHOP2 ---
Operative Report - 2 Report Details Date: 04/26/24 Preop Diagnosis: Right carotid artery stenosis Postop Diagnosis: Same Surgeon: Sancho Vidal MD Anesthesiologist: Samara Anesthesia: General Consent: The patient was informed of the risks and benefits of the procedure. These include but are not limited to complications of anesthesia, postoperative infection, incomplete relief of symptoms, recurrence of symptoms, damage to blood vessels, nerves and tendons, deep venous thrombosis, pulmonary embolism and possible need for repeat surgery in the future. Estimated Blood Loss: 150 mL Name of Procedure Performed Right carotid endarterectomy Procedure Details Procedure Details: Patient was identified in the preop hold area he has been consented in preop by myself. He was brought back to the operating room placed in the operative room table supine position after adequate induction anesthesia antibiotics and time- out the right neck was prepped and draped in normal surgical fashion standard carotid incision was made on the right neck dissection was taken down through the platysmas Bovie cauterization was used for hemostasis. The s ternocleidomastoid muscle was then retracted laterally the facial vein was identified mobilized and divided with 2-0 silk sutures and hemoclips. The carotid artery was then mobilized proximally the common carotid artery was then circumferentially controlled with vessel loops dissection was taken up to the carotid bulb and bifurcation where 1% preservative-free lidocaine was injected into the carotid bulb bifurcation no hemodynamic changes were noted. The external carotid artery as well as the internal carotid artery them were circumferentially controlled. The plaque on the FCR was felt to be right at the bifurcation 5000 units of heparin was given. After approximately 5 minutes the vessels involve were clamped and an arteriotomy was made in the common carotid artery extended into the internal carotid artery using a free air in the plaque was removed at this point in time the Lr shunt was then introduced and restored flow to the distal internal carotid artery. Careful attention was then placed to the intraluminal area where no further plaque was noted at the of the lumen was flushed with heparinized saline and then a bovine pericardial patch was sewn to the internals and common carotid artery with 6 0 Prolene suture in a running fashion prior to completion of the anastomosis the shunt was removed the vessels involved with flushed with heparinized saline and the anastomosis was complete there was several areas of suture line bleeding which were controlled with interrupted 6 0 Prolene sutures. It was some oozing so extra Surgicel was applied and manual pressure was held finally the a drain was brought to the field a NIKO drain was then inserted via a stab incision in the lateral neck. The wound was then closed with a deep carotid sheath layer interrupted sutures 2-0 Vicryl followed by a dermal layer 2-0 Vicryl sutures skin was closed with 4-0 Monocryl subcuticular suture. And Dermabond was applied to the skin as well. Sterile dressing was applied voltage incision and drain site. The patient awoke without any difficulties neurologically intact to the PACU in a stable condition. Specimen: Right carotid plaque Condition Critical Disposition pacu SANCHO VIDAL Jr., MD Apr 26, 2024 10:35
[2024-04-26] MEDS ORDERED: NITROGLYCERIN 0.4 MG SL TAB SL PRN (10:45)
[2024-04-26] MEDS ORDERED: MORPHINE SULFATE INJ 2 MG/ml SYRG IV PRN ×2 (10:45→12:45)
--- NOTE | 2024-04-26 12:43 | DVHHP2 ---
Review of Systems Allergies: Coded Allergies: NO KNOWN ALLERGIES (Unverified , 11/26/19) Medications Current Medications Medications Dose Ordered Sig/Sharmila Route Start Time Stop Time Status Last Admin Dose Admin Nitroglycerin 0.4 mg Q5MINP PRN SL 04/26/24 10:45 Morphine Sulfate 2 mg Q30M PRN IV 04/26/24 10:45 Exam Vital Signs Vital Signs Date Time Temp Pulse Resp B/P (MAP) Pulse Ox O2 Delivery O2 Flow Rate FiO2 04/26/24 10:20 Nasal Cannula 3.0 97 04/26/24 10:20 97 04/26/24 06:16 97.1 57 16 146/76 (99) 97.1 Labs/Xrays Labs Test 04/26/24 06:36 03/25/24 10:40 Range/Units White Blood Count 5.1 4.4-10.8 10^3/uL Red Blood Count 3.75 L 4.5-5.90 10^6/uL Hemoglobin 11.2 L 13.5-17.5 g/dL Hematocrit 34.1 L 41.0-53.0 % Mean Corpuscular Volume 90.9 80.0-100.0 fL Mean Corpuscular Hemoglobin 29.9 28.0-32.0 pg Mean Corpuscular Hemoglobin Concent 32.9 32.0-36.0 g/dL Red Cell Distribution Width 16.2 H 11.8-14.3 % Platelet Count 115 L 140-450 10^3/uL Mean Platelet Volume 10.7 6.9-10.8 fL Neutrophils (%) (Auto) 59.6 37.0-80.0 % Lymphocytes (%) (Auto) 26.6 10.0-50.0 % Monocytes (%) (Auto) 8.8 0.0-12.0 % Eosinophils (%) (Auto) 4.3 0.0-7.0 % Basophils (%) (Auto) 0.7 0.0-2.0 % Neutrophils # (Auto) 3.0 1.6-8.6 10 ^3/uL Lymphocytes # (Auto) 1.4 0.4-5.4 10 ^3/uL Monocytes # (Auto) 0.4 0-1.3 10 ^3/uL Eosinophils # (Auto) 0.2 0-0.8 10 ^3/uL Basophils # (Auto) 0 0-0.2 10 ^3/uL Nucleated Red Blood Cells 0.0 % Prothrombin Time 11.5 9.3-11.8 sec Prothrombin Time INR 1.09 0.9-1.15 Activated Partial Thromboplast Time 28.4 24.5-34.5 SEC Sodium Level 141 136-145 mmol/L Potassium Level 4.7 3.5-5.1 mmol/L Chloride Level 103 98-107 mmol/L Carbon Dioxide Level 25 20-31 mmol/L Anion Gap 13 5-15 Blood Urea Nitrogen 83 *H 9-23 mg/dL Creatinine 11.74 *H 0.700-1.30 mg/dL Glomerular Filtration Rate Calc 5 >90 mL/min BUN/Creatinine Ratio 7.1 L 10.0-20.0 Serum Glucose 86 74-106 mg/dL Calcium Level 9.3 8.7-10.4 mg/dL Total Bilirubin 0.5 0.2-1.0 mg/dL Aspartate Amino Transferase (AST) 12 L 13-40 U/L Alanine Aminotransferase (ALT) 20 7-40 U/L Alkaline Phosphatase 58 46-116 U/L Total Protein 6.9 5.7-8.2 g/dL Albumin 4.6 3.2-4.8 g/dL Assessment/Plan Assessment/Plan see dictated note Plan discussed with: Patient, Other (mother) My Orders Orders - DEVENDRA RUFF MD Procedure Category Date Status Time Admit ADMIT 04/26/24 Transmitted 10:41 Oxygen By Nasal RT 04/26/24 Transmitted Cannula 10:41 Nitroglycerin PHA 04/26/24 In Process Sublingual (Ntrostat 10:45 Morphine Sulfate PHA 04/26/24 In Process Injection 10:45 Stat Ekg For Chest MACKENZIE 04/26/24 In Process Pain 10:41 Notify Md Of Changes MACKENZIE 04/26/24 In Process From Base 10:41 Windows Security Engineer For MACKENZIE 04/26/24 In Process 24 Hours 10:41 Emergency Dysrhythmia MACKENZIE 04/26/24 In Process Protocol 10:41 Rhythm Strips Once MACKENZIE 04/26/24 In Process Every Shift 10:41 *[facility] CONS 04/26/24 Transmitted -[place] 12:37 Atorvastatin (Lipitor) PHA 04/26/24 Transmitted 22:00 Levetiracetam Tablet PHA 04/26/24 Transmitted (Keppra Tablet) 22:00 Hydrocodone-Acet PHA 04/26/24 Transmitted 5/325mg Tab ([place] 12:45 Morphine Sulfate PHA 04/26/24 Transmitted Injection 12:45 Acetaminophen Tablet PHA 04/26/24 Transmitted (Tylenol Tablet) 12:45 Ondansetron Hcl PHA 04/26/24 Transmitted (Zofran) 12:45 Hydralazine Injection PHA 04/26/24 Transmitted (Apresoline Inject 12:45 Complete Blood Count LAB 04/27/24 Verified 06:00 Comprehensive LAB 04/27/24 Verified Metabolic Panel 06:00 Chest Portable XY 04/27/24 Transmitted 06:00 Date of Service: Apr 26, 2024 Billing Provider: DEVENDRA RUFF MD Common Visit Codes: [id number] INP/OBS CARE (HIGH) Secondary Visit Codes: [id number] CARE PLAN 30 MINUTES DEVENDRA RUFF MD Apr 26, 2024 12:43
[2024-04-26] MEDS ORDERED: ACETAMINOPHEN 325 MG TAB PO PRN (12:45)
[2024-04-26] MEDS ORDERED: ONDANSETRON HCL 4 MG/2 ML VIAL IV PRN (12:45)
[2024-04-26] MEDS ORDERED: HYDROcodone-ACET 5/325MG TAB PO PRN (12:45)
--- NOTE | 2024-04-26 12:56 | DVHHP ---
ADMIT DATE: 04/26/2024 HISTORY OF PRESENT ILLNESS: The patient is a 49-year-old gentleman who was admitted after he underwent a right carotid endarterectomy. The patient at this time denies any significant pain. No chest pain, no shortness of breath, no focal deficit. No nausea or vomiting. REVIEW OF SYSTEMS: Review of rest of systems otherwise currently negative. PAST MEDICAL HISTORY: Significant for previous CVA with expressive aphasia, also has history of left carotid endarterectomy, end-stage renal disease, on hemodialysis, hypertension, hyperlipidemia, peripheral vascular disease with right below-knee amputation. MEDICATIONS: Include aspirin, Lipitor, Coreg, Zetia, Keppra, minoxidil, nifedipine, Brilinta. ALLERGIES: No known drug allergies. SOCIAL HISTORY: Denies smoking or alcohol. Lives at home with his mother. FAMILY HISTORY: Negative. PHYSICAL EXAMINATION: GENERAL: The patient is awake, alert. VITAL SIGNS: Temperature of 97.1, pulse 57 per minute, blood pressure 146/76. SHEENT: Unremarkable, except for dressing in the right neck with a drain in place. EXTREMITIES: There is no pedal edema. LUNGS: Equal bilaterally. No added sounds. CARDIOVASCULAR: S1, S2 is regular, no murmurs. ABDOMEN: Soft. There is no organomegaly. NEUROLOGIC: The patient has expressive aphasia. MUSCULOSKELETAL: The patient has right BKA. ASSESSMENT AND PLAN: * End-stage renal disease, for which a Nephrology eval will be obtained. * Hypertension, for which she will be placed on p.r.n. hydralazine. * History of cerebrovascular accident with expressive aphasia. * Hyperlipidemia. * Peripheral vascular disease, status post right below-knee amputation. * Thrombocytopenia, which will be monitored. * Hypertension. * Peripheral vascular disease. * Status post right carotid endarterectomy for carotid stenosis for which she will be followed up by Dr. Vidal. * Advance care planning, the patient is a full code Time spent was 18 minutes. MD CHINA Whitten/JANN TID: [id number] RECEIPT: [id number]
--- NOTE | 2024-04-26 13:18 | DVHINCON2 ---
Date of service: Apr 26, [address] Gupta Reason for Consultation End-stage renal disease to manage hemodialysis History of Present Illness Patient is 49-year-old male with end-stage renal disease on hemodialysis, hypertension, peripheral via disease and diabetes mellitus 0 is admitted status post right endarterectomy. Nephrology is consulted to manage his hemodialysis Past Medical History End-stage renal disease on hemodialysis Diabetes mellitus CVA Hypertension Peripheral arterial disease Right below-knee amputation Past Surgical History Status post left endarterectomy Status post right endarterectomy Left upper arm AV fistula Right below-knee amputation Allergies: Coded Allergies: NO KNOWN ALLERGIES (Unverified , 11/26/19) Home Meds Reported Medications Calcium Carbonate (Antacid) (Tums Ultra 1000) 1,000 Mg Chw, 1000 MG PO BID, TAB.CHEW 03/25/24 Cholecalciferol (D3) 50 Mcg Cap, 2 TAB PO DAILY, CAP 03/25/24 Ezetimibe (Zetia) 10 Mg Tab, 30 MG PO DAILY, TAB 03/25/24 Sevelamer Carbonate (Renvela) 800 Mg Tab, 2 TAB PO TID, TAB 01/08/24 Levetiracetam (Keppra) 500 Mg Tab, 500 MG PO BID, TAB 01/08/24 Atorvastatin Calcium (ATORVASTATIN CALCIUM) 80 Mg Tab, 80 MG PO HS, TAB 01/08/24 Ferrous Sulfate (FERROUS SULFATE) 325 Mg Tb, 325 MG PO DAILY, TAB 01/08/24 Nifedipine (Nifedipine ER) 30 Mg Tab, 30 MG PO DAILY, TAB 01/08/24 Ticagrelor Base (BRILINTA) 90 Mg Tab, 90 MG PO BID for new cardiac stent, TAB 11/11/23 Aspirin (ASPIRIN 81) 81 Mg Tab, 1 TAB PO DAILY for HEART ATTACK PREVENTION 05/11/20 Carvedilol (Carvedilol) 25 Mg Tab, 1 TAB PO BID for HYPERTENSION 11/26/19 Minoxidil (Loniten) 2.5 Mg Tb, 1 TAB PO BID PRN for SBP>150, 1 Refill PRN BLOOD PRESSURE >150/80 11/26/19 Current Medications Current Medications Medications (Trade) Dose Ordered Sig/Sharmila Route PRN Reason Start Time Stop Time Status Last Admin Nitroglycerin (Ntrostat Sublingual) 0.4 mg Q5MINP PRN SL FOR CHEST PAIN 04/26/24 10:45 Morphine Sulfate 2 mg Q30M PRN IV FOR CHEST PAIN 04/26/24 10:45 Atorvastatin Calcium (Lipitor) 80 mg HS PO 04/26/24 22:00 UNV Levetiracetam (Keppra Tablet) 500 mg BID PO 04/26/24 22:00 UNV Acetaminophen/ Hydrocodone Bitart (Gilson 5/325MG Tab) 1 tab Q6HPRN PRN PO MODERATE PAIN (4-6 PAIN SCALE) 04/26/24 12:45 UNV Morphine Sulfate 1 mg Q4HP PRN IV SEVERE PAIN (7-10 PAIN SCALE) 04/26/24 12:45 UNV Acetaminophen (Tylenol Tablet) 650 mg Q6HP PRN PO MILD PAIN (1-3 PAIN SCALE) 04/26/24 12:45 UNV Ondansetron HCl (Zofran) 4 mg Q6HPRN PRN IV NAUSEA / VOMITING 04/26/24 12:45 UNV Hydralazine HCl (Apresoline Injection) 10 mg Q6HP PRN IV SBP>150 04/26/24 12:45 UNV Family History: FH: carotid endarterectomy Hypertension G8 MOTHER G8 FATHER Review of Systems All 12 item review of systems reviewed with the patient nonsignificant except what is mentioned in the history of present illness H&P Exam Vital Signs/I&O Vital Sign Date Time Temp Pulse Resp B/P (MAP) Pulse Ox O2 Delivery O2 Flow Rate FiO2 04/26/24 11:35 60 13 134/54 (80) 96 04/26/24 10:20 Nasal Cannula 3.0 97 04/26/24 06:16 97.1 97.1 Physical Exam Patient is awake alert Lungs clear to auscultation bilaterally Cardiac exam regular rate and rhythm GI soft nontender was normal Extremities right below-knee amputation Neuro patient is awake and alert Labs/Diagnostic Data Labs/Diagnostic Data Laboratory Tests Test 04/26/24 06:36 03/25/24 10:40 Range/Units White Blood Count 5.1 4.2 L 4.4-10.8 10^3/uL Red Blood Count 3.75 L 4.04 L 4.5-5.90 10^6/uL Hemoglobin 11.2 L 12.0 L 13.5-17.5 g/dL Hematocrit 34.1 L 37.0 L 41.0-53.0 % Mean Corpuscular Volume 90.9 91.6 80.0-100.0 fL Mean Corpuscular Hemoglobin 29.9 29.7 28.0-32.0 pg Mean Corpuscular Hemoglobin Concent 32.9 32.4 32.0-36.0 g/dL Red Cell Distribution Width 16.2 H 14.9 H 11.8-14.3 % Platelet Count 115 L 78 L 140-450 10^3/uL Mean Platelet Volume 10.7 11.2 H 6.9-10.8 fL Neutrophils (%) (Auto) 59.6 50.3 37.0-80.0 % Lymphocytes (%) (Auto) 26.6 34.0 10.0-50.0 % Monocytes (%) (Auto) 8.8 10.8 0.0-12.0 % Eosinophils (%) (Auto) 4.3 4.1 0.0-7.0 % Basophils (%) (Auto) 0.7 0.8 0.0-2.0 % Neutrophils # (Auto) 3.0 2.1 1.6-8.6 10 ^3/uL Lymphocytes # (Auto) 1.4 1.4 0.4-5.4 10 ^3/uL Monocytes # (Auto) 0.4 0.5 0-1.3 10 ^3/uL Eosinophils # (Auto) 0.2 0.2 0-0.8 10 ^3/uL Basophils # (Auto) 0 0 0-0.2 10 ^3/uL Nucleated Red Blood Cells 0.0 0.1 % Prothrombin Time 11.5 12.4 H 9.3-11.8 sec Prothrombin Time INR 1.09 1.19 H 0.9-1.15 Activated Partial Thromboplast Time 28.4 29.3 24.5-34.5 SEC Sodium Level 141 141 136-145 mmol/L Potassium Level 4.7 4.5 3.5-5.1 mmol/L Chloride Level 103 103 98-107 mmol/L Carbon Dioxide Level 25 27 20-31 mmol/L Anion Gap 13 11 5-15 Blood Urea Nitrogen 83 *H 39 H 9-23 mg/dL Creatinine 11.74 *H 7.89 H 0.700-1.30 mg/dL Glomerular Filtration Rate Calc 5 8 >90 mL/min BUN/Creatinine Ratio 7.1 L 4.9 L 10.0-20.0 Serum Glucose 86 78 74-106 mg/dL Calcium Level 9.3 8.4 L 8.7-10.4 mg/dL Total Bilirubin 0.5 0.2-1.0 mg/dL Aspartate Amino Transferase (AST) 12 L 13-40 U/L Alanine Aminotransferase (ALT) 20 7-40 U/L Alkaline Phosphatase 58 46-116 U/L Total Protein 6.9 5.7-8.2 g/dL Albumin 4.6 3.2-4.8 g/dL Assessment End-stage renal disease missed hemodialysis Peripheral arterial disease Status post left carotid endarterectomy 01/11 Hypertension CVA Right below-knee amputation Anemia of chronic kidney disease Recommendations hemodialysis 3 times weekly Epogen 14335 IV post hemodialysis Resume home medication Fluid restrictions Renal diet We will continue to follow Patient seen and examined by myself ICU bed 11. I discussed my plan of care with the patient and primary nurse at the bedside I would like to thank Dr. Gupta for the consult, will follow up Plan discussed with: Patient CHEVY MAY MD Apr 26, 2024 13:18
[2024-04-26 13:53] LABS: Magnesium 2.8 mg/dL (1.6-2.6)
[2024-04-26 13:55] LABS: Phosphorus 3.7 mg/dL (2.4-5.1)
[2024-04-26] MEDS: hydrALAZINE HCL 20 MG/ML VL IV PRN (18:46)
[2024-04-26] MEDS: levETIRAcetam 500 MG TAB PO SCH (22:22)
[2024-04-26] MEDS: ATORVASTATIN 20 MG TAB PO SCH (22:22)
[2024-04-27] VITALS (43 sets, daily range): BP systolic 115–171; BP diastolic 30–80; PULSE 59–118; RESP 8–17; TEMP 97.6–98.2; O2SAT 95–100
[2024-04-27 03:41] LABS: Basophils # (auto) 0 10 ^3/uL (0-0.2); Basophils % (auto) 0.1 % (0.0-2.0); Eosinophils # (auto) 0 10 ^3/uL (0-0.8); Hematocrit 28.7 % (41.0-53.0); Hemoglobin 9.7 g/dL (13.5-17.5); Lymphocytes # (auto) 0.7 10 ^3/uL (0.4-5.4); Lymphocytes % (auto) 8.8 % (10.0-50.0); Mean Corpuscular Volume 91.2 fL (80.0-100.0); Monocytes # (auto) 0.4 10 ^3/uL (0-1.3); Monocytes % (auto) 5.9 % (0.0-12.0); Neutrophils # (auto) 6.3 10 ^3/uL (1.6-8.6); Neutrophils % (auto) 85.2 % (37.0-80.0); Platelet Count (auto) 102 10^3/uL (140-450); Red Blood Cells 3.14 10^6/uL (4.5-5.90); Red Cell Distribution Width 16.2 % (11.8-14.3); White Blood Cell 7.4 10^3/uL (4.4-10.8)
[2024-04-27 03:47] LABS: Alanine Aminotransferase 10 U/L (7-40); Alkaline Phosphatase 52 U/L (46-116); Anion Gap 16 (5-15); BUN/Creatinine Ratio 7.9 (10.0-20.0); Calcium 8.8 mg/dL (8.7-10.4); Carbon Dioxide 23 mmol/L (20-31); Chloride 101 mmol/L (98-107); Sodium 140 mmol/L (136-145); Total Protein 6.6 g/dL (5.7-8.2)
[2024-04-27 03:48] LABS: Albumin 4.3 g/dL (3.2-4.8); Bilirubin, Total 0.3 mg/dL (0.2-1.0)
[2024-04-27 04:05] LABS: Blood Urea Nitrogen 102 mg/dL (9-23); Glucose 120 mg/dL (74-106); Potassium 5.3 mmol/L (3.5-5.1)
[2024-04-27 04:06] LABS: Aspartate Aminotransferase < 8 U/L (13-40)
--- NOTE | 2024-04-27 05:14 | DVH ---
EXAM: XR Chest, 1 View CLINICAL INDICATION: esrd TECHNIQUE: Frontal view of the chest. COMPARISON: XY CHEST PORTABLE on DOS: 11/11/23, CHEST PORTABLE on DOS: 03/28/20 FINDINGS: LUNGS AND PLEURAL SPACES: Mild congestive heart failure. No consolidation. No pneumothorax. HEART: Unremarkable. No cardiomegaly. MEDIASTINUM: Unremarkable. Normal mediastinal contour. BONES/JOINTS: Unremarkable. No acute fracture. OTHER FINDINGS: . IMPRESSION: Mild congestive heart failure.
--- NOTE | 2024-04-27 06:33 | DVHPN2 ---
Progress Note Date Seen: Apr 27, 2024 Has the PT tested + for MRSA If YES, has PT been informed?: No Medical Necessity Reason Pt with a Central, PICC or Fol: No Subjective Patient reports: No new complaints Review of Systems: HEENT:Normal, CVS:Normal, RESPIRATORY:Normal, GI:Normal, :Normal, MSK:Normal, NEURO:Normal Objective vital signs Vital Sign Date Time Temp Pulse Resp B/P (MAP) Pulse Ox O2 Delivery O2 Flow Rate FiO2 04/27/24 06:00 60 04/27/24 06:00 12 98 Nasal Cannula* 2 28 04/27/24 06:00 136/37 (70) 04/27/24 00:00 98.1 98.1 Total Intake and Output 04/26/24 04/26/24 04/27/24 15:00 23:00 07:00 Intake Total 100 ml 250 ml 200 ml Output Total 20 ml 25 ml 25 ml Balance 80 ml 225 ml 175 ml medications Current Medications Medications Dose Ordered Sig/Sharmila Route Start Time Stop Time Status Last Admin Dose Admin Nitroglycerin 0.4 mg Q5MINP PRN SL 04/26/24 10:45 Morphine Sulfate 2 mg Q30M PRN IV 04/26/24 10:45 Atorvastatin Calcium 80 mg HS PO 04/26/24 22:00 04/26/24 22:22 80 MG Levetiracetam 500 mg BID PO 04/26/24 22:00 04/26/24 22:22 500 MG Acetaminophen/ Hydrocodone Bitart 1 tab Q6HPRN PRN PO 04/26/24 12:45 Morphine Sulfate 1 mg Q4HP PRN IV 04/26/24 12:45 Acetaminophen 650 mg Q6HP PRN PO 04/26/24 12:45 Ondansetron HCl 4 mg Q6HPRN PRN IV 04/26/24 12:45 Hydralazine HCl 10 mg Q6HP PRN IV 04/26/24 12:45 04/26/24 18:46 10 MG Examination: GENERAL:Normal, HEENT:Normal, NECK:Normal (incision cdi, kd drain removed), LUNGS:Normal, CVS:Normal, ABDOMEN:Normal, MSK:Normal, SKIN:Normal, NEURO:Normal, :Normal laboratory and microbiology Laboratory Tests 04/27/24 03:00 Test 04/27/24 03:00 Range/Units Serum Glucose 120 H 74-106 mg/dL Labs and/or images reviewed: Labs reviewed by me Problem List/Assessment/Plan Problem List/Assessment/Plan s/p right cea oob advance diet D/c home once medically stable Plan discussed with: Patient ADALBERTO CONWAY Jr., MD Apr 27, 2024 06:33
[2024-04-27] MEDS: SODIUM CHL 0.9% 1000 ML BAG XX ONE (07:00)
--- NOTE | 2024-04-27 10:45 | DVHPN2 ---
Progress Note Date Seen: Apr 27, 2024 Has the PT tested + for MRSA If YES, has PT been informed?: No Medical Necessity Reason Pt with a Central, PICC or Fol: No Subjective Patient reports: No new complaints Other Systems: Patient seen and examined by myself today in follow-up Patient examined hemodialysis Objective vital signs Vital Sign Date Time Temp Pulse Resp B/P (MAP) Pulse Ox O2 Delivery O2 Flow Rate FiO2 04/27/24 10:00 11 97 Nasal Cannula* 2 28 04/27/24 10:00 65 04/27/24 09:00 142/55 (84) 04/27/24 07:30 97.6 97.6 Total Intake and Output 04/26/24 04/26/24 04/27/24 15:00 23:00 07:00 Intake Total 100 ml 250 ml 200 ml Output Total 20 ml 25 ml 25 ml Balance 80 ml 225 ml 175 ml medications Current Medications Medications Dose Ordered Sig/Sharmila Route Start Time Stop Time Status Last Admin Dose Admin Nitroglycerin 0.4 mg Q5MINP PRN SL 04/26/24 10:45 Morphine Sulfate 2 mg Q30M PRN IV 04/26/24 10:45 Atorvastatin Calcium 80 mg HS PO 04/26/24 22:00 04/26/24 22:22 80 MG Levetiracetam 500 mg BID PO 04/26/24 22:00 04/27/24 10:19 500 MG Acetaminophen/ Hydrocodone Bitart 1 tab Q6HPRN PRN PO 04/26/24 12:45 Morphine Sulfate 1 mg Q4HP PRN IV 04/26/24 12:45 Acetaminophen 650 mg Q6HP PRN PO 04/26/24 12:45 Ondansetron HCl 4 mg Q6HPRN PRN IV 04/26/24 12:45 Hydralazine HCl 10 mg Q6HP PRN IV 04/26/24 12:45 04/26/24 18:46 10 MG Examination: LUNGS:Normal, CVS:Normal (e stable), MSK:Normal laboratory and microbiology Laboratory Tests 04/27/24 03:00 Test 04/27/24 03:00 Range/Units Serum Glucose 120 H 74-106 mg/dL Problem List/Assessment/Plan Problem List/Assessment/Plan End-stage renal disease missed hemodialysis Peripheral arterial disease Status post left carotid endarterectomy 01/11 Hypertension CVA Right below-knee amputation Anemia of chronic kidney disease Recommendations Continue with UF 1-3 L as tolerated Epogen 04812 IV post hemodialysis Resume home medication Fluid restrictions Renal diet We will continue to follow Plan discussed with: Patient My Orders My Orders Orders - CHEVY MAY MD Procedure Category Date Status Time Hemodialysis Orders ORDERS 04/27/24 Transmitted 07:00 Dialysis Nursing MACKENZIE 04/27/24 In Process Message 07:00 Document Fluid Input MACKENZIE 04/27/24 In Process And Outpu 07:00 CHEVY MAY MD Apr 27, 2024 10:45
--- NOTE | 2024-04-27 14:44 | DVHPN2 ---
Progress Note Date Seen: Apr 27, 2024 Has the PT tested + for MRSA If YES, has PT been informed?: No Medical Necessity Reason Pt with a Central, PICC or Fol: No Subjective Patient reports: No new complaints Review of Systems: HEENT:Normal, CVS:Normal, RESPIRATORY:Normal, GI:Normal, :Normal, MSK:Normal, NEURO:Normal Objective vital signs Vital Sign Date Time Temp Pulse Resp B/P (MAP) Pulse Ox O2 Delivery O2 Flow Rate FiO2 04/27/24 13:51 172/82 04/27/24 12:00 11 98 Nasal Cannula* 2 28 04/27/24 12:00 64 04/27/24 07:30 97.6 97.6 Total Intake and Output 04/26/24 04/26/24 04/27/24 15:00 23:00 07:00 Intake Total 100 ml 250 ml 200 ml Output Total 20 ml 25 ml 25 ml Balance 80 ml 225 ml 175 ml medications Current Medications Medications Dose Ordered Sig/Sharmila Route Start Time Stop Time Status Last Admin Dose Admin Nitroglycerin 0.4 mg Q5MINP PRN SL 04/26/24 10:45 Morphine Sulfate 2 mg Q30M PRN IV 04/26/24 10:45 Atorvastatin Calcium 80 mg HS PO 04/26/24 22:00 04/26/24 22:22 80 MG Levetiracetam 500 mg BID PO 04/26/24 22:00 04/27/24 10:19 500 MG Acetaminophen/ Hydrocodone Bitart 1 tab Q6HPRN PRN PO 04/26/24 12:45 Morphine Sulfate 1 mg Q4HP PRN IV 04/26/24 12:45 Acetaminophen 650 mg Q6HP PRN PO 04/26/24 12:45 Ondansetron HCl 4 mg Q6HPRN PRN IV 04/26/24 12:45 Hydralazine HCl 10 mg Q6HP PRN IV 04/26/24 12:45 04/27/24 13:51 10 MG Examination: GENERAL:Normal, HEENT:Normal, HEENT:Abnormal (right neck dressing), NECK:Normal, LUNGS:Normal, CVS:Normal, ABDOMEN:Normal, MSK:Normal, SKIN:Normal, NEURO:Normal, :Normal laboratory and microbiology Laboratory Tests 04/27/24 03:00 Test 04/27/24 03:00 Range/Units Serum Glucose 120 H 74-106 mg/dL Microbiology Date/Time Source Procedure Growth Status 04/26/24 18:14 Nose MRSA Screen - Final Complete Problem List/Assessment/Plan Problem List/Assessment/Plan * End-stage renal disease: dialysis today * Hypertension, for which she will be placed on p.r.n. hydralazine. * History of cerebrovascular accident with expressive aphasia. * Hyperlipidemia. * Peripheral vascular disease, status post right below-knee amputation. * Thrombocytopenia, which will be monitored. * Hypertension. * Status post right carotid endarterectomy for carotid stenosis for which she will be followed up by Dr. Vdial * acute diastolic heart failure: dialysis today * Advance care planning, the patient is a full code- time spent 19 mins Plan discussed with: Patient My Orders My Orders Orders - DEVENDRA RUFF MD Procedure Category Date Status Time Mechanical Soft Diet DIET 04/26/24 Transmitted Dinner Transfer Orders XFER 04/27/24 Verified 14:40 Basic Metabolic Panel LAB 04/28/24 Verified 06:00 Complete Blood Count LAB 04/28/24 Verified 06:00 Date of Service: Apr 27, 2024 Billing Provider: DEVENDRA RUFF MD Common Visit Codes: [id number] INP/OBS CARE(HIGH) DEVENDRA RUFF MD Apr 27, 2024 14:44
[2024-04-27] MEDS: EPOETIN ALFA-EPBX 10,000 UNIT/1ML VIAL IV ONE (17:53)
[2024-04-27] MEDS: GELATIN 1 SPONGE SIZE 50 TOP ONE (21:36)
[2024-04-27] MEDS: LIDOCAINE 1% HCL (LOCAL ANESTH.) INJ 20ML MDV ONE (21:36)
[2024-04-27] MEDS: THROMBIN (BOVINE) 5000 UNIT SOL VIAL ONE (21:36)
[2024-04-27] MEDS: HEPARIN SODIUM (PORCINE) 5000 UNITS/ML 1ML VIAL ONE ×2 (21:37)
[2024-04-27] MEDS: BUPIVACAINE 0.25% INJ 50ML VIAL ONE (21:37)
[2024-04-28 01:00] VITALS: BP_SYST 125; BP_SYST 154; BP_DIAS 56; BP_DIAS 75; PULSE 70; PULSE 75; RESP 16; RESP 18; TEMP 97.5; TEMP 98; O2SAT 95; O2SAT 98
[2024-04-28 05:00] VITALS: BP 135/76; PULSE 83; RESP 18; TEMP 97.4; O2SAT 95
[2024-04-28 07:54] LABS: Basophils # (auto) 0 10 ^3/uL (0-0.2); Basophils % (auto) 0.2 % (0.0-2.0); Eosinophils # (auto) 0 10 ^3/uL (0-0.8); Eosinophils % (auto) 0.6 % (0.0-7.0); Hematocrit 31.5 % (41.0-53.0); Hemoglobin 10.4 g/dL (13.5-17.5); Lymphocytes % (auto) 16.3 % (10.0-50.0); Monocytes # (auto) 0.7 10 ^3/uL (0-1.3); Monocytes % (auto) 11.4 % (0.0-12.0); Neutrophils # (auto) 4.2 10 ^3/uL (1.6-8.6); Neutrophils % (auto) 71.5 % (37.0-80.0); Nucleated Red Blood Cells % 0.1 %; Platelet Count (auto) 112 10^3/uL (140-450); Red Blood Cells 3.46 10^6/uL (4.5-5.90); Red Cell Distribution Width 16.6 % (11.8-14.3); White Blood Cell 5.9 10^3/uL (4.4-10.8)
[2024-04-28 08:00] VITALS: PULSE 71; PULSE 77; RESP 16; O2SAT 94
[2024-04-28 08:06] LABS: Chloride 100 mmol/L (98-107); Potassium 4.4 mmol/L (3.5-5.1); Sodium 139 mmol/L (136-145)
[2024-04-28 08:07] LABS: Anion Gap 10 (5-15); Calcium 8.9 mg/dL (8.7-10.4); Carbon Dioxide 29 mmol/L (20-31)
[2024-04-28 08:12] LABS: BUN/Creatinine Ratio 5.9 (10.0-20.0); Glucose 86 mg/dL (74-106)
[2024-04-28 08:13] LABS: Blood Urea Nitrogen 56 mg/dL (9-23)
[2024-04-28 08:33] VITALS: BP 169/87; PULSE 77; RESP 16; TEMP 98.3; O2SAT 94
--- NOTE | 2024-04-28 10:01 | DVHDS2 ---
Discharge Summary Date of Admission Apr 26, 2024 at 10:41 Date of Discharge: Apr 28, 2024 Labs/Diagnostic Data: Laboratory Results Test 04/28/24 07:25 04/27/24 03:00 04/26/24 06:36 White Blood Count 5.9 10^3/uL (4.4-10.8) Red Blood Count 3.46 10^6/uL (4.5-5.90) Hemoglobin 10.4 g/dL (13.5-17.5) Hematocrit 31.5 % (41.0-53.0) Mean Corpuscular Volume 91.0 fL (80.0-100.0) Mean Corpuscular Hemoglobin 30.0 pg (28.0-32.0) Mean Corpuscular Hemoglobin Concent 33.0 g/dL (32.0-36.0) Red Cell Distribution Width 16.6 % (11.8-14.3) Platelet Count 112 10^3/uL (140-450) Mean Platelet Volume 11.3 fL (6.9-10.8) Neutrophils (%) (Auto) 71.5 % (37.0-80.0) Lymphocytes (%) (Auto) 16.3 % (10.0-50.0) Monocytes (%) (Auto) 11.4 % (0.0-12.0) Eosinophils (%) (Auto) 0.6 % (0.0-7.0) Basophils (%) (Auto) 0.2 % (0.0-2.0) Neutrophils # (Auto) 4.2 10 ^3/uL (1.6-8.6) Lymphocytes # (Auto) 1.0 10 ^3/uL (0.4-5.4) Monocytes # (Auto) 0.7 10 ^3/uL (0-1.3) Eosinophils # (Auto) 0 10 ^3/uL (0-0.8) Basophils # (Auto) 0 10 ^3/uL (0-0.2) Nucleated Red Blood Cells 0.1 % Sodium Level 139 mmol/L (136-145) Potassium Level 4.4 mmol/L (3.5-5.1) Chloride Level 100 mmol/L (98-107) Carbon Dioxide Level 29 mmol/L (20-31) Anion Gap 10 (5-15) Blood Urea Nitrogen 56 mg/dL (9-23) Creatinine 9.43 mg/dL (0.700-1.30) Glomerular Filtration Rate Calc 6 mL/min (>90) BUN/Creatinine Ratio 5.9 (10.0-20.0) Serum Glucose 86 mg/dL (74-106) Calcium Level 8.9 mg/dL (8.7-10.4) Total Bilirubin 0.3 mg/dL (0.2-1.0) Aspartate Amino Transferase (AST) < 8 U/L (13-40) Alanine Aminotransferase (ALT) 10 U/L (7-40) Alkaline Phosphatase 52 U/L (46-116) Total Protein 6.6 g/dL (5.7-8.2) Albumin 4.3 g/dL (3.2-4.8) Prothrombin Time 11.5 sec (9.3-11.8) Prothrombin Time INR 1.09 (0.9-1.15) Activated Partial Thromboplast Time 28.4 SEC (24.5-34.5) Phosphorus Level 3.7 mg/dL (2.4-5.1) Magnesium Level 2.8 mg/dL (1.6-2.6) Vitamin D 25-Hydroxy 55.7 ng/mL (30.0-100) Parathyroid Hormone (Intact) 204.0 pg/mL (18.4-80.1) Hepatitis B Surface Antigen Negative (Negative) Other Laboratory Tests 04/28/24 07:25 Brief Hx & Hospital Course: see dictated note Condition at Discharge: Fair Final Diagnosis/Problems List right carotid endarterectomy Discharge Disposition: Home Discharge Instruct/Medications Diet: Renal Activity: No Restrictions, As Tolerated Follow Up/Referral: fu with dialysis/surgery Medications: resume home meds Discharge Statement: "Patient was advised to return to the ER or call 911 if any headaches, dizziness, shortness of breath, chest pain, abdominal pain, bleeding, fevers, or worsening of medical condition. Patient was counseled about treatment plan, medications, possible side effects, patientverbalized understanding. All questions were answered to the best of my ability. This discharge took greater then 30 minutes in planning, reviewing documentation, counseling the patient, and discussing with other team members." ASSESSMENT ASSESSMENT Assessment right carotid endarterectomy Date of Service: Apr 28, 2024 Billing Provider: DEVENDRA RUFF MD Common Visit Codes: [id number] DISCH DAY >30min DEVENDRA RUFF MD Apr 28, 2024 10:01
--- NOTE | 2024-04-28 10:11 | DVHDS ---
DATE OF DISCHARGE: 04/28/2024 The patient is a 49-year-old gentleman who was admitted after he underwent right carotid endarterectomy and has history of end-stage renal disease on hemodialysis, hypertension, CVA, hyperlipidemia, peripheral vascular disease, right below-knee amputation, and thrombocytopenia. HOSPITAL COURSE: The patient was seen in Nephrology consult by Dr. Sharma. He was continued on dialysis during his hospitalization. The patient has now been cleared for discharge by Dr. Vidal. He will be discharged home to resume his home medications and follow up with dialysis clinic as well as with surgery. FINAL DIAGNOSES: * End-stage renal disease, on hemodialysis. * History of cerebrovascular accident with expressive aphasia. * Hyperlipidemia. * Peripheral vascular disease, status post right below-knee amputation. * Thrombocytopenia. * Hypertension. * Likely acute diastolic heart failure. * Status post right carotid artery endarterectomy. Time spent in discharge planning and review of plan with the patient and nursing was 38 minutes. MD CHINA Whitten/CLARE TID: [id number] RECEIPT: [id number]
--- NOTE | 2024-04-28 11:24 | DVHPN2 ---
Progress Note Date Seen: Apr 28, 2024 Has the PT tested + for MRSA If YES, has PT been informed?: No Medical Necessity Reason Pt with a Central, PICC or Fol: No Subjective Patient reports: No new complaints Other Systems: Patient seen and examined by myself today in follow-up Objective vital signs Vital Sign Date Time Temp Pulse Resp B/P (MAP) Pulse Ox O2 Delivery O2 Flow Rate FiO2 04/28/24 09:37 169/87 04/28/24 08:33 98.3 77 16 94 98.3 04/27/24 22:30 Room Air* 0 21 Total Intake and Output 04/27/24 04/27/24 04/28/24 15:00 23:00 07:00 Intake Total 200 ml 480 ml 150 ml Output Total 3000 ml Balance 200 ml -2520 ml 150 ml medications Current Medications Medications Dose Ordered Sig/Sharmila Route Start Time Stop Time Status Last Admin Dose Admin Nitroglycerin 0.4 mg Q5MINP PRN SL 04/26/24 10:45 Morphine Sulfate 2 mg Q30M PRN IV 04/26/24 10:45 Atorvastatin Calcium 80 mg HS PO 04/26/24 22:00 04/27/24 21:34 80 MG Levetiracetam 500 mg BID PO 04/26/24 22:00 04/28/24 09:35 500 MG Acetaminophen/ Hydrocodone Bitart 1 tab Q6HPRN PRN PO 04/26/24 12:45 Morphine Sulfate 1 mg Q4HP PRN IV 04/26/24 12:45 Acetaminophen 650 mg Q6HP PRN PO 04/26/24 12:45 Ondansetron HCl 4 mg Q6HPRN PRN IV 04/26/24 12:45 Hydralazine HCl 10 mg Q6HP PRN IV 04/26/24 12:45 04/28/24 09:37 10 MG Examination: LUNGS:Normal, CVS:Normal, MSK:Normal laboratory and microbiology Laboratory Tests 04/28/24 07:25 Test 04/28/24 07:25 Range/Units Serum Glucose 86 74-106 mg/dL Microbiology Date/Time Source Procedure Growth Status 04/26/24 18:14 Nose MRSA Screen - Final Complete Problem List/Assessment/Plan Problem List/Assessment/Plan End-stage renal disease missed hemodialysis Peripheral arterial disease Status post left carotid endarterectomy 01/11 Hypertension CVA Right below-knee amputation Anemia of chronic kidney disease Recommendations Hemodialysis tomorrow Epogen 32894 IV post hemodialysis Resume home medication Blood pressure control Fluid restrictions Renal diet We will continue to follow Plan discussed with: Patient Dietary Evaluation Review Comments: Recommend Renal Standard Diet, Expected Outcomes/Goals: Routine Dialysis and WNL lab values CHEVY MAY MD Apr 28, 2024 11:24
[2024-04-28 12:33] VITALS: TEMP 36.8
[2024-04-28 13:07] VITALS: BP 154/72; PULSE 75; RESP 16; TEMP 97.9; O2SAT 95
[2024-04-29] MEDS ORDERED: SODIUM CHL 0.9% 1000 ML BAG XX ONE (07:00)
[2024-04-29] MEDS ORDERED: EPOETIN ALFA-EPBX 10,000 UNIT/1ML VIAL SC ONE (21:00)
== END 2024-04-28 14:00 | disposition home or self-care (01) | DRG 37 ==
LOC: SUR 06:05 → OVERFLOW 10:41 → ICU WEST 11:03 → TELE-CENTR 04-27 22:10
PROVIDERS: ADMIT Internal Medicine; ATTEND Internal Medicine
PROC: 03CK0ZZ Extirpation of Matter from Right Internal Carotid Artery, Open Approach (ICD-10-PCS; 2024-04-26)
PROC: 03UH0KZ Supplement Right Common Carotid Artery with Nonautologous Tissue Substitute, Open Approach (ICD-10-PCS; 2024-04-26)
PROC: 03UK0KZ Supplement Right Internal Carotid Artery with Nonautologous Tissue Substitute, Open Approach (ICD-10-PCS; 2024-04-26)
PROC: 03CH0ZZ Extirpation of Matter from Right Common Carotid Artery, Open Approach (ICD-10-PCS; principal; 2024-04-26 07:47)
PROC: 5A1D70Z Performance of Urinary Filtration, Intermittent, Less than 6 Hours Per Day (ICD-10-PCS; 2024-04-27)
DX: I65.21 Occlusion and stenosis of right carotid artery (principal); I50.31 Acute diastolic (congestive) heart failure; N18.6 End stage renal disease; I13.2 Hypertensive heart and chronic kidney disease with heart failure and with stage 5 chronic kidney disease, or end stage renal disease; Z99.2 Dependence on renal dialysis; E11.22 Type 2 diabetes mellitus with diabetic chronic kidney disease; I69.320 Aphasia following cerebral infarction; D69.6 Thrombocytopenia, unspecified; D63.1 Anemia in chronic kidney disease; E78.5 Hyperlipidemia, unspecified; E11.51 Type 2 diabetes mellitus with diabetic peripheral angiopathy without gangrene; Z89.511 Acquired absence of right leg below knee; Z79.899 Other long term (current) drug therapy; Z82.49 Family history of ischemic heart disease and other diseases of the circulatory system; Z79.1 Long term (current) use of non-steroidal anti-inflammatories (NSAID); Z79.891 Long term (current) use of opiate analgesic
CPT/HCPCS: 36415; 71045; 80048; 80053; 82306; 83735; 83970; 84100; 85025; 85610; 85730; 86850; 86900; 86901; 87081; 87340; 90935; G0378; J0330; J1100; J1642; J2003; J2250; J2405; J3490